=== PATIENT | male | born 1950 | race African-American/Black ===

== ENCOUNTER 2019-03-11 09:11 | Inpatient (IN) | payer OTHER ==
[~2019-03-11 09:11] MED LIST: CEFAZOLIN 2 GM/D5W 2 GM/50 ML ML IVPB ONE; GABAPENTIN 300 MG CAPSULE (FP) PO STA; VANCOMYCIN 1 GRAM (PRE-DOCKED) 1,000 MG/250 ML BAG IVPB ONE
[2019-03-11] MEDS ORDERED: ceFAZolin SODIUM 1 GM VIAL ONE ×3 (11:21→19:24)
[2019-03-11] MEDS ORDERED: fentaNYL CITRATE 250 MCG/5 ML VIAL ONE ×2 (13:01→17:47)
[2019-03-11] MEDS ORDERED: LIDOCAINE HCL/PF 2% SDV 5ML VIAL ONE (13:02)
[2019-03-11] MEDS ORDERED: SUCCINYLCHOLINE CHLORIDE 200 MG/10 ML SYRINGE ONE (13:02)
[2019-03-11] MEDS ORDERED: DEXAMETHASONE SOD PHOSPHATE 4 MG/1 ML VIAL ONE (13:02)
[2019-03-11] MEDS ORDERED: ONDANSETRON 4 MG/2 ML VIAL ONE (13:02)
[2019-03-11] MEDS ORDERED: VANCOMYCIN 1,000 MG VIAL (RESTRICTED TO ID ONLY) ONE (13:02)
[2019-03-11] MEDS ORDERED: PROPOFOL 20 ML ONE ×19 (13:02→18:33)
[2019-03-11] MEDS ORDERED: TRANEXAMIC ACID 1000 MG/10 ML VIAL ONE ×2 (13:02→15:34)
[2019-03-11] MEDS ORDERED: THROMBIN (BOVINE) 5,000 UNIT VIAL TP ONE ×2 (13:10→15:40)
[2019-03-11] MEDS ORDERED: MORPHINE 5 MG/10 ML AMP - FOR COMPOUNDING USE ONLY ONE (13:16)
[2019-03-11] MEDS ORDERED: HEPARIN NA (PORCINE) 5,000 UNITS/ML 1ML VIAL ONE (13:17)
[2019-03-11] MEDS ORDERED: BUPIVACAINE HCL/PF 0.5% (5MG/ML) 10 ML VIAL ONE (13:41)
[2019-03-11] MEDS ORDERED: BUPIVACAINE LIPOSOME/PF (EXPAREL) 266 MG/20 ML VIAL ONE (13:41)
[2019-03-11] MEDS ORDERED: MIDAZOLAM HCL 2 MG/2 ML SINGLE DOSE VIAL ONE ×2 (13:43)
[2019-03-11] MEDS ORDERED: NALOXONE HCL 0.4 MG/ML VIAL IVPUSH PRN (13:55)
[2019-03-11] MEDS ORDERED: ONDANSETRON 4 MG/2 ML VIAL IVPUSH PRN ×2 (13:55→14:00)
[2019-03-11] MEDS ORDERED: VANCOMYCIN 1,000 MG VIAL (RESTRICTED TO ID ONLY) IVPB ONE (14:00)
[2019-03-11] MEDS ORDERED: LACTATED RINGERS SOLUTION 1,000 ML IV SCH ×2 (14:00→20:00)
[2019-03-11] MEDS ORDERED: ceFAZolin SODIUM 1 GM VIAL IVPB ONE (14:45)
[2019-03-11] MEDS ORDERED: GELATIN SPONGE,ABSORBABLE 1 GM PACKET TP ONE (15:41)
[2019-03-11] MEDS ORDERED: NEOSTIGMINE METHYLSULFATE 0.5 MG/1 ML - 10 ML MDV ONE (16:41)
[2019-03-11] MEDS ORDERED: GLYCOPYRROLATE 0.2 MG/1 ML VIAL ONE (16:42)
[2019-03-11] MEDS ORDERED: PHENYLEPHRINE HCL 10 MG/1 ML SINGLE DOSE VIAL ONE (18:07)
--- NOTE | 2019-03-11 21:51 | OP ---
DATE OF OPERATION: 03/11/2019 SURGEON: Dallas Hewitt MD MOTORCYCLE DELIVERER: Ned Hunt PA-C PREOPERATIVE DIAGNOSIS: Lumbar spinal stenosis L2-S1 with kyphosis and segmental instability. POSTOPERATIVE DIAGNOSIS: Lumbar spinal stenosis L2-S1 with kyphosis and segmental instability. OPERATION PERFORMED: 1. Left laminectomy with undercutting facetectomy L2-S1. 2. Right laminectomy with undercutting facetectomy L2-S1. 3. Incidental durotomy with repair. 4. Interiano-Horowitz osteotomy on the left L2-L3. 5. Interiano-Horowitz osteotomy on the right L2-L3. 6. L2-S1 pedicle screw instrumentation. 7. Posterolateral arthrodesis L2-S1. 8. Complex wound closure, 4 layers, 25 cm. 9. Use of autologous bone graft expanded with allograft and bone marrow aspirate concentration utilized. 10. Use of bipolar fluoroscopy and intraoperative neuromonitoring. ANESTHESIA: General. ANTIBIOTICS GIVEN: Kefzol 2 g, 1 g vancomycin preoperative, 1 g Kefzol given just before instrumentation, and 1 g Kefzol given at the time of closure. BLOOD LOSS: Approximately 1 L. Cell Saver utilized, 400 mL given back. OPERATION DETAILS: Patient correctly identified, brought to the operating room. The lumbar spine was prepped and draped in the routine manner with betadine scrub solution, wiped off with alcohol, and DuraPrep applied. The patient was placed pone on the Richie table. All bony prominences and eyes were appropriately padded. The appropriate timeout was called. The retractors were released every 20 minutes and muscles were massaged. Midline incision utilized from the tip of the spinous process of T12 to S1. Subperiosteal dissection performed through skin, subcutaneous tissues, to the transverse spinous processes. The erectus spinae were dissected off of the spinous processes and laminae of the facet joints out to the tip of the transverse processes on the left and right-hand sides. The intertransverse plane was packed with sponges for hemostasis and to expand the space for bone graft. A lateral x-ray was taken at the level of L4-L5 to verify levels. The lamina of L2, L3, L4, and L5 were resected, both left and right-hand sides. Each one was treated exactly the same way. A midline laminectomy was performed first to open up the posterior laminar plane. Once this had been performed, the undercutting facetectomy was performed in the following manner: First the inferior facets of each level with half the longitudinal length of the pars interarticularis were resected by sinking an osteotome alongside the length of the pars interarticularis into the inferior facet, imploding the bone inwards towards the vertebral canal. This was performed at each level, from L2 right down to S1, both on the left and right-hand sides. This enabled easy access to the superior facet, but severe multilevel spinal stenosis encountered. This was a combination of bone as well as convoluted thickened ligamentum mucosa, which was copiously removed. Unusual tissue was encountered in the right-hand side L4-L5-S1 interval of a myxoid mucinous-type material, which I could not save any for the lab because the suction sucked up most of this material. This appeared to be imperative of some form of inflammatory process as the theca both on the left and right-hand sides were stuck down precluding the ability to do any interbody spacers and interbody cages with anterior arthrodesis. We aimed at posterior lumbar interbody fusions at multiple levels, but this has turned out to be impossible because of the adherence of the dura. Each nerve root was traced to each foramen. Each foramen was actually formally opened, thus performing a formal foraminotomy at every level to ensure that the foramen was capacious and passage of an infant feeding tube easily was passed through each foramen. At the L2-L3 level, the foraminotomy enabled a wide resection of the pars interarticularis and also the superior and inferior facets. Once this had been performed, the spine actually simply, because of the positioning on the table and Richie frame, fell into increased kyphosis very effectively. Once the laminectomies had been performed and complete freeing of the theca performed, it was reported by the neuromonitoring team that the neural measuring levels improved dramatically. A small bleb of dura was sutured. This was noted on the left L2-L3 level. A 4 Nurolon suture was used to close the dura and bright it to tight seal. This was tested for seal by a Valsalva maneuver up to 40 mmHg. Once this had all been completed and the laminectomies, durotomy performed, and Interiano-Horowitz now completed, the pedicle screws were inserted. We used anatomical guidelines and lateral fluoroscopic x-rays to help guide the screws. Screws measured 6.5 x 40. All screws were placed. First a 4.5 drill was sunk into each pedicle. After that, the screws were tested with intraoperative neuromonitoring. All were found to be above 20 milliamps with no complications. The rods were cut to the size of the length. The rods were placed with no complications. The screws were seated into the tulips to lock the rods into position and then finally the torque device was utilized. Two Crosslinks were applied for solid fixation. Once the entire rock construction had been completed, the muscle was gently lifted. Then 120 mL of bone marrow from the left posterior ileum was harvested and spun down to the CD34 cells. Six strips of demineralized bone was soaked in the stem cells of the bone marrow aspirate concentrate and placed longitudinally into the intertransverse plane on both the left and right-hand sides. This was mixed with autologous and expanded with some bone marrow josh was packed into the intertransverse plane from L1 to S1. This completed the appropriate posterolateral arthrodesis. The wounds were thoroughly lavaged. Closure: After trimming of muscle with scissors, muscle with 1 Vicryl; fascia 1 Vicryl; subcutaneous tissue 1 and 2-0 Vicryl; skin with fady. Drainage: One-eighth inch Hemovac x1. Operation went well. No complications. PLAN: The plan is to monitor the patient postoperatively. MD PEE Villalobos/[id number]
[2019-03-11] MEDS ORDERED: ATORVASTATIN CA 10 MG TABLET (FP) PO SCH (22:00)
[2019-03-11] MEDS ORDERED: [UNRECOGNIZED DRUG - OTHER] OU SCH (22:00)
[2019-03-11] MEDS ORDERED: PATIENT'S OWN MEDICATION (NON-FORMULARY) (Oxybutynin Chloride [Oxybutynin Chloride Er] 5 M PO SCH (22:00)
[2019-03-11] MEDS ORDERED: OXYBUTYNIN CHLORIDE 5 MG TABLET PO SCH (22:00)
[2019-03-11] MEDS ORDERED: LATANOPROST 0.005% OPHTH SOLN 2.5ML BOTTLE OU SCH (22:00)
[2019-03-11] MEDS ORDERED: LATANOPROST OU SCH (22:00)
--- NOTE | 2019-03-11 22:12 | OP ---
Operative Note - Note: Operative Date: 03/11/19 Pre-Operative Diagnosis: Lumbar Spinal Stenosis Segmental Instability Kyphosis Operation: L2 to S1 Bilatral laminectomy. Interiano saba osteotomy. Instrumented L2 to S1 posterolateral arthrodesis Findings: Severe spinal stenosis Implants: [employer] Surgeon: Dallas Hewitt [place] Aide: Ned Hunt Anesthesia: General Estimated Blood Loss (mls): 1,000 Drains & Tubes with Location: Hemovac 09/18 Blood Volume Replaced (mls): 400 (cell saver blood) Operative Report Dictated: Yes
[2019-03-11] MEDS: ACETAMINOPHEN 325 MG TABLET (FP) PO SCH (23:32)
--- NOTE | 2019-03-11 23:48 | CONSULT ---
Consultation: REQUESTING PROVIDER: CONSULT REQUEST: We have been asked to medically evaluate this patient for ( specify). HISTORY OF PRESENT ILLNESS: Mr. Joe is a pleasant 68 y/o man with DM, HTN, gout, and spinal stenosis with segmental instability admitted to the ICU for medical management s/p L2-S1 bilateral laminectomy. The patient is alert and oriented to self, location, and date however is perseverating on questions and still seems to be slightly affected by the anesthesia. The patient was unable to give a complete history at this time. He states he is feeling well and only has a little back pain. He denies numbness or tingling in his extremities, chest pain, SOB, and states he has not yet passed gas. Social History: - Smoking: endorses remote smoking history (quit in 20s), denies smoking now - Alcohol: denies alcohol use - Recreational Drugs: endorses cannabis use, denies other recreational drugs REVIEW OF SYSTEMS: CONSTITUTIONAL: Absent: fever, chills, diaphoresis, malaise HEENT: Endorses: dry mouth Absent: rhinorrhea, nasal congestion, throat pain, difficulty swallowing CARDIOVASCULAR: Absent: chest pain, palpitations, lightheadedness, peripheral edema RESPIRATORY: Absent: cough, shortness of breath GASTROINTESTINAL: Absent: abdominal pain, abdominal distension, nausea, vomiting GENITOURINARY: Absent: dysuria, flank pain MUSCULOSKELETAL: Endorses: "Numbness in center back" Absent: myalgia, arthralgia, joint swelling SKIN: Absent: rash, itching, pallor NEUROLOGIC: Absent: headache, focal weakness or paresthesias, dizziness PHYSICAL EXAMINATION Vital Signs - 24 hr 03/11/19 03/11/19 03/11/19 11:03 11:08 11:17 Temperature 98.6 F 98.6 F Pulse Rate 58 L 58 L Respiratory 20 20 Rate Blood Pressure 170/91 170/91 O2 Sat by Pulse 98 Oximetry (%) 03/11/19 03/11/19 03/11/19 19:56 20:15 20:30 Temperature 97.9 F Pulse Rate 74 73 71 Respiratory 18 19 18 Rate Blood Pressure 111/77 97/68 101/64 O2 Sat by Pulse 99 97 97 Oximetry (%) 03/11/19 03/11/19 03/11/19 20:45 21:00 21:15 Temperature 98.1 F Pulse Rate 69 69 71 Respiratory 16 12 18 Rate Blood Pressure 109/69 90/53 L 113/74 O2 Sat by Pulse 97 98 100 Oximetry (%) 03/11/19 03/11/19 03/11/19 21:30 21:45 22:00 Temperature 98.4 F Pulse Rate 63 69 70 Respiratory 13 15 14 Rate Blood Pressure 86/52 L 112/54 L 142/54 L O2 Sat by Pulse 97 100 100 Oximetry (%) 03/11/19 22:15 Temperature Pulse Rate 71 Respiratory 18 Rate Blood Pressure 113/74 O2 Sat by Pulse 100 Oximetry (%) GENERAL: Awake, alert, in no acute distress. HEAD: Normal with no signs of trauma. EYES: Pupils equal, round and reactive to light, extraocular movements intact, sclera anicteric, conjunctiva clear. EARS, NOSE, THROAT: Dry mucous membranes. NECK: supple without lymphadenopathy, JVD, or masses. LUNGS: Breath sounds equal, coarse bilaterally. No wheezes, and no crackles. No accessory muscle use. HEART: Regular rate and rhythm, normal S1 and S2 with a systolic murmur. ABDOMEN: Soft, nontender, not distended, normoactive bowel sounds, no guarding, no rebound, no masses. UPPER EXTREMITIES: 2+ pulses, warm, well-perfused. No peripheral edema. LOWER EXTREMITIES: 2+ pulses, warm, well-perfused. No peripheral edema. NEUROLOGICAL: Cranial nerves II-XII intact. Normal speech. PSYCHIATRIC: Cooperative. Good eye contact. Appropriate mood and affect. SKIN: Warm, dry, no rashes or lesions noted. Laboratory Results - last 24 hr 03/11/19 03/11/19 03/11/19 10:47 12:00 12:06 POC Glucometer 106 Blood Type O NEGATIVE O NEGATIVE Antibody Screen Negative Active Medications Generic Name Dose Route Start Last Admin Trade Name Freq PRN Reason Stop Dose Admin Acetaminophen 650 mg 03/11/19 14:00 Tylenol - PO Q6HPO JUSTIN Allopurinol 100 mg 03/12/19 10:00 Zyloprim - PO DAILY JUSTIN Atorvastatin Calcium 10 mg 03/11/19 22:00 Lipitor - PO HS JUSTIN Brimonidine Tartrate 1 drop 03/12/19 10:00 Alphagan P 0.1% - OU DAILY JUSTIN Diphenhydramine HCl 25 mg 03/11/19 13:55 Benadryl Injection - IVPUSH ONCE PRN FOR ITCHING Eplerenone 50 mg 03/12/19 10:00 Eplerenone PO DAILY [facility] Folic Acid 1 mg 03/12/19 10:00 Folic Acid - PO DAILY [facility] Furosemide 40 mg 03/11/19 20:00 Lasix - PO ASDIR [facility] Glimepiride 1 mg 03/12/19 07:00 Amaryl - PO DAILY@0700 [facility] Hydrochlorothiazide 25 mg 03/12/19 10:00 Hctz - PO DAILY [facility] Lactated Ringer's 1,000 mls @ 75 mls/hr 03/11/19 14:00 Lactated Ringers Solution IV ASDIR [facility] Lactated Ringer's 1,000 mls @ 125 mls/hr 03/11/19 20:00 03/11/19 21:30 Lactated Ringers Solution IV 125 mls ASDIR [facility] Administration Cefazolin Sodium/Dextrose 2 gm in 50 mls @ 100 mls/hr 03/12/19 02:00 Ancef 2 Gm Premixed Ivpb - IVPB 03/13/19 01:59 Q8H-IV [facility] Latanoprost 1 drop 03/11/19 22:00 Xalatan 0.005% Eye Drops - OU HS [facility] Lisinopril 20 mg 03/12/19 10:00 Prinivil PO DAILY [facility] Metoprolol Tartrate 25 mg 03/11/19 22:00 Lopressor - PO BID [facility] Naloxone HCl 0.4 mg 03/11/19 13:55 Narcan - IVPUSH ONCE PRN Sedation Non-Formulary Medication 240 mg 03/11/19 22:00 Verapamil Hcl [Verapamil Er] PO BID [facility] Ondansetron HCl 4 mg 03/11/19 13:55 Zofran Injection IVPUSH ONCE PRN NAUSEA Ondansetron HCl 4 mg 03/11/19 14:00 Zofran Injection IVPUSH Q6H PRN NAUSEA AND/OR VOMITING Oxybutynin Chloride 5 mg 03/11/19 22:00 Ditropan - PO HS [facility] Oxycodone HCl 5 mg 03/12/19 13:55 Roxicodone - PO Q3H PRN Mild Pain 1-3 Oxycodone HCl 10 mg 03/12/19 13:55 Roxicodone - PO Q3H PRN Moderate Pain 4-6 Oxycodone HCl 10 mg 03/11/19 22:00 Oxycontin - PO BID [facility] Pneumococcal 13-Valent Conj Vacc 0.5 ml 03/11/19 11:10 Prevnar 13 Syringe - IM 03/11/19 11:11 .ONCE ONE ASSESSMENT/PLAN: Mr. Joe is a 68 year old man with pmhx of DM, HTN, gout, and spinal stenosis with segmental instability admitted to the ICU for medical management s /p L2-S1 bilateral laminectomy. Neuro: - appreciate Dr. Ballard's recommendations - Neuro checks q12h - daily drain checks/ empty as needed - OOB to chair as tolerated - incentive spirometry -Pain management: Tylenol 650 mg q6h PO Oxycodone HCl 10mg BID PO - Antibiotics: Cefazolin Sodium/Dextrose 2 gm in 50 mls @ 100 mls/hr IVPB Q8H-IV -Nausea Zofran Injection 4mg q6h PRN IV push CV: - Continue home meds for HTN/ HLD: Atorvastatin Calcium 10mg PO qHS Eplerenone 50mg PO qDaily Hydrochlorothiazide 25mg PO qDaily Lisinopril 20mg PO qDaily Metoprolol Tartrate 25mg PO BID Verapamil Hcl 240mg PO BID Endo: - Continue home meds for DM -Glimepiride 1mg PO daily @ 0700 HEENT: -Continue home meds for glaucoma: Alphagan P 0.1% 1 drop OU daily Latanoprost 0.005% 1 drop OU at bedtime Rheum: - Continue home meds for gout- Allopurinol 100mg qDaily PO FEN: - Fluid: LR 1,000 mls @ 125 mls/hr IV - Electrolytes: replete as needed - Nutrition: advance diet as tolerated DVT PPX: SCDs Dispo: We will continue to follow the patient. Thank you for this consultative opportunity. Visit type - Emergency Visit Emergency Visit: No - New Patient This patient is new to me today: Yes Date on this admission: 03/12/19 - Critical Care Critical Care patient: Yes Total Critical Care Time (in minutes): 36 Critical Care Statement: The care of this patient involved high complexity decision making to prevent further life threatening deterioration of the patient 's condition and/or to evaluate & treat vital organ system(s) failure or risk of failure.
[2019-03-11] MEDS: METOPROLOL TARTRATE 25 MG TABLET (FP) PO SCH (23:54)
[2019-03-11] MEDS: oxyCODONE HCL 10 MG SUSTAINED ACTING TABLET PO SCH (23:54)
[2019-03-12] MEDS: ACETAMINOPHEN 325 MG TABLET (FP) PO SCH ×4 (00:50→18:22)
[2019-03-12] MEDS: CEFAZOLIN 2 GM/D5W 2 GM/50 ML ML IVPB SCH ×3 (01:01→17:14)
[2019-03-12 06:21] LABS: HEMOGLOBIN 10.6 GM/dL (11.7-16.9); MCH 22.8 pg (25.7-33.7); MCHC 31.3 g/dl (32.0-35.9); MEAN CELL VOLUME 72.8 fl (80-96); MEAN PLT VOLUME 10.3 fl (7.5-11.1); PLATELET COUNT 102 K/MM3 (134-434); RBC 4.67 M/mm3 (4.00-5.60); RDW 14.1 % (11.9-15.9); WHITE BLOOD COUNT 12.5 K/mm3 (4.0-10.0)
[2019-03-12 06:45] LABS: BLOOD UREA NITROGEN 13.9 mg/dL (7-18); CALCIUM 7.8 mg/dL (8.5-10.1); CREATININE 0.8 mg/dL (0.55-1.3); POTASSIUM 3.7 mmol/L (3.5-5.1)
[2019-03-12] MEDS: oxyCODONE HCL 5 MG TABLET PO PRN ×3 (06:46→18:23)
[2019-03-12] MEDS ORDERED: GLIMEPIRIDE 1 MG TABLET (FP) PO SCH (07:00)
--- NOTE | 2019-03-12 07:01 | SURG ---
Surgery Vocational Training Director Note Vocational Training Director: Ned Hunt PA-C Date of Service: 03/11/19 Diagnosis: Lumbar Spinal Stenosis. Segmental Instability. Kyphosis Procedure: L2 to S1 Bilatral laminectomy. Interiano Horowitz Osteotomy. Instrumented L2 to S1 posterolateral arthrodesis I was present for the entirety of the operative procedure. For further detail, please refer to operative report. Visit type - Case Type Case Type: Scheduled - New patient This patient is new to me today: Yes Date on this admission: 03/12/19
--- NOTE | 2019-03-12 07:52 | SPA.POSTOP ---
- POST-OP NOTE POD #1 s/p L2-S1 Bilateral laminectomy. Interiano Horowitz Osteotomy. Instrumented L2-S1 posterolateral arthrodesis. Repair of small durotomy. Alert. In bed with HOB at 15 degrees. C/o Incisional tenderness but well controlled. Received preop Exparel block by anasthesia followed by Duramorph spinal. Denies n/v/f/c, CP, palpitations, SOB or [place]. Last Vital Signs Temp Pulse Resp BP Pulse Ox 98.1 F 64 18 131/79 100 03/12/19 06:00 03/12/19 06:00 03/12/19 06:00 03/12/19 06:00 03/11/19 22:30 CBC, BMP 03/12/19 05:43 03/12/19 05:43 General: No acute distress. Pulm: CTA bilat Cor: RRR Abd: Soft. Non-tender. No distention Back: Dressing c/d/i. Hemovac 5mL (serosang). No hematoma : May 450mL (clear) Neuro: GMNVI bilat LE: Soft, non-tender bilat. SCD's bilat. Problem List - Problems (1) Degenerative lumbar spinal stenosis Assessment/Plan: POD #1 s/p s/p L2-S1 Bilateral laminectomy. Interiano Horowitz Osteotomy. Instrumented L2-S1 posterolateral arthrodesis Anasthesia for continued pain management DVT PPX via bilat SCDs Incentive Spirometer Case Management for possible Rehab placement Physical Therapy I/Os Sodium controlled diet f/u Lumbar Xray OOB to chair with assist Tight glycemic control Code(s): M48.061 - SPINAL STENOSIS, LUMBAR REGION WITHOUT NEUROGENIC MARY (2) Kyphosis Code(s): M40.209 - UNSPECIFIED KYPHOSIS, SITE UNSPECIFIED (3) Diabetes Code(s): E11.9 - TYPE 2 DIABETES MELLITUS WITHOUT COMPLICATIONS (4) HTN (hypertension) Code(s): I10 - ESSENTIAL (PRIMARY) HYPERTENSION (5) Gout Code(s): M10.9 - GOUT, UNSPECIFIED Visit type - Case Type Case Type: Scheduled
[2019-03-12] MEDS ORDERED: LISINOPRIL 20 MG TABLET (FP) PO SCH (10:00)
[2019-03-12] MEDS ORDERED: FOLIC ACID 1 MG TABLET (FP) PO SCH (10:00)
[2019-03-12] MEDS ORDERED: HYDROCHLOROTHIAZIDE 25 MG TABLET (FP) PO SCH (10:00)
[2019-03-12] MEDS ORDERED: EPLERENONE 25 MG TABLET PO SCH (10:00)
[2019-03-12] MEDS ORDERED: ALLOPURINOL 100 MG TABLET (FP) PO SCH (10:00)
[2019-03-12] MEDS ORDERED: BRIMONIDINE TARTRATE 0.1% OPHTHALMIC 5 ML BOTTLE OU SCH (10:00)
[2019-03-12] MEDS: oxyCODONE HCL 10 MG SUSTAINED ACTING TABLET PO SCH ×2 (10:20→21:48)
[2019-03-12] MEDS: METOPROLOL TARTRATE 25 MG TABLET (FP) PO SCH ×2 (10:26→21:49)
[2019-03-12] MEDS ORDERED: PT OWN MED DRAWER 7, Y5N ONE (10:29)
[2019-03-12] MEDS ORDERED: PNEUMOC 13-VAL CONJ-DIP CRM/PF 0.5 ML DISP.SYRIN IM ONE (11:00)
--- NOTE | 2019-03-12 12:34 | PN ---
Physical Exam: SUBJECTIVE: Patient seen and examined. No acute events overnight. Pt. denies passing stool or gas. Pt. endorses lower back pain on movement but improved since procedure. OBJECTIVE: Vital Signs Period Temp Pulse Resp BP Sys/Esquivel Pulse Ox Last 24 Hr 97.9 F-98.4 F 63-81 12-22 86-142/51-87 97-100 GENERAL: The patient is awake, alert, and fully oriented, in moderate distress due to pain. HEAD: Normal with no signs of trauma. EYES: PERRL, Sclera anicteric, conjunctiva clear. No ptosis. ENT: Ears normal, nares patent, oropharynx clear without exudates, moist mucous membranes. NECK: Trachea midline, full range of motion, supple. LUNGS: Breath sounds equal, clear to auscultation bilaterally, no wheezes, no crackles, no accessory muscle use. HEART: Regular rate and rhythm, S1, S2 without murmur ABDOMEN: Soft, nontender, nondistended, normoactive bowel sounds, no guarding, no rebound EXTREMITIES: 2+ pulses, warm, well-perfused, no edema. NEUROLOGICAL: Normal speech, gait not observed. 5/5 strength in all limbs, sensation grossly in tact in all limbs PSYCH: Normal mood, normal affect. SKIN: Warm, dry, normal turgor Laboratory Results - last 24 hr 03/11/19 03/11/19 03/12/19 12:00 12:06 05:43 WBC 12.5 H RBC 4.67 Hgb 10.6 L Hct 34.0 L MCV 72.8 L MCH 22.8 L MCHC 31.3 L RDW 14.1 Plt Count 102 L MPV 10.3 Sodium Potassium Chloride Carbon Dioxide Anion Gap BUN Creatinine Est GFR (CKD-EPI)AfAm Est GFR (CKD-EPI)NonAf POC Glucometer Random Glucose Calcium Blood Type O NEGATIVE O NEGATIVE Antibody Screen Negative 03/12/19 03/12/19 03/12/19 05:43 05:55 11:51 WBC RBC Hgb Hct MCV MCH MCHC RDW Plt Count MPV Sodium 140 Potassium 3.7 Chloride 106 Carbon Dioxide 29 Anion Gap 5 L BUN 13.9 Creatinine 0.8 Est GFR (CKD-EPI)AfAm 104.90 Est GFR (CKD-EPI)NonAf 90.51 POC Glucometer 119 123 Random Glucose 106 Calcium 7.8 L Blood Type Antibody Screen Active Medications Current Medications Acetaminophen (Tylenol -) 650 mg PO Q6HPO [facility] Last Admin: 03/12/19 06:08 Dose: 650 mg Allopurinol (Zyloprim -) 100 mg PO DAILY [facility] Last Admin: 03/12/19 10:22 Dose: 100 mg Atorvastatin Calcium (Lipitor -) 10 mg PO HS [facility] Last Admin: 03/11/19 23:54 Dose: 10 mg Brimonidine Tartrate (Alphagan P 0.1% -) 1 drop OU DAILY [facility] Last Admin: 03/12/19 10:39 Dose: 1 drop Diphenhydramine HCl (Benadryl Injection -) 25 mg IVPUSH ONCE PRN PRN Reason: FOR ITCHING Eplerenone (Eplerenone) 50 mg PO DAILY [facility] Last Admin: 03/12/19 12:24 Dose: 50 mg Folic Acid (Folic Acid -) 1 mg PO DAILY [facility] Last Admin: 03/12/19 10:22 Dose: 1 mg Furosemide (Lasix -) 40 mg PO MOWEFR [facility] Glimepiride (Amaryl -) 1 mg PO DAILY@0700 [facility] Last Admin: 03/12/19 06:08 Dose: 1 mg Hydrochlorothiazide (Hctz -) 25 mg PO DAILY [facility] Last Admin: 03/12/19 10:22 Dose: 25 mg Lactated Ringer's (Lactated Ringers Solution) 1,000 mls @ 125 mls/hr IV ASDIR [facility] Last Admin: 03/11/19 21:30 Dose: 125 mls Cefazolin Sodium/Dextrose (Ancef 2 Gm Premixed Ivpb -) 2 gm in 50 mls @ 100 mls /hr IVPB Q8H-IV [facility] Stop: 03/13/19 01:59 Last Admin: 03/12/19 10:23 Dose: 100 mls/hr Latanoprost (Xalatan 0.005% Eye Drops -) 1 drop OU HS [facility] Last Admin: 03/11/19 23:58 Dose: 1 drop Lisinopril (Prinivil) 20 mg PO DAILY [facility] Last Admin: 03/12/19 10:26 Dose: 20 mg Metoprolol Tartrate (Lopressor -) 25 mg PO BID [facility] Last Admin: 03/12/19 10:26 Dose: 25 mg Naloxone HCl (Narcan -) 0.4 mg IVPUSH ONCE PRN PRN Reason: Sedation Ondansetron HCl (Zofran Injection) 4 mg IVPUSH ONCE PRN PRN Reason: NAUSEA Ondansetron HCl (Zofran Injection) 4 mg IVPUSH Q6H PRN PRN Reason: NAUSEA AND/OR VOMITING Oxybutynin Chloride (Ditropan -) 5 mg PO HS [facility] Last Admin: 03/11/19 23:54 Dose: 5 mg Oxycodone HCl (Roxicodone -) 5 mg PO Q3H PRN PRN Reason: Mild Pain 1-3 Oxycodone HCl (Roxicodone -) 10 mg PO Q3H PRN PRN Reason: Moderate Pain 4-6 Last Admin: 03/12/19 06:46 Dose: 10 mg Oxycodone HCl (Oxycontin -) 10 mg PO BID [facility] Last Admin: 03/12/19 10:20 Dose: 10 mg Verapamil HCl (Calan Sr -) 240 mg PO DAILY [facility] ASSESSMENT/PLAN: Pt. is a 68 y.o. M w/ PMHx. of DM, HTN, Gout, and Spinal stenosis with segmental instability presents to the ICU s/p L2-S1 bilateral laminectomy. #Neurology POD #[address] Ballard's recommendations Neuro checks q12h Daily drain checks/ empty as needed OOB to chair as tolerated Incentive spirometer Pain management: Tylenol 650 mg q6h PO Oxycodone HCl 10mg Q3H(Pain 4-6) PO, Oxycodone 5mg Q3H (Pain 1-3) Antibiotics: c/w Cefazolin Sodium/Dextrose 2 gm in 50 mls @ 100 mls/hr IVPB Q8H-IV perioperatively, f/u Neurosurgery for duration Nausea c/w Zofran Injection 4mg q6h PRN IV push #Cardiovascular HTN/ HLD: c/w Atorvastatin Calcium 10mg PO HS Eplerenone 50mg PO Daily Hydrochlorothiazide 25mg PO Daily Lisinopril 20mg PO Daily Metoprolol Tartrate 25mg PO BID Verapamil Hcl 240mg PO Daily #Endocrine DM - c/w Glimepiride 1mg PO daily @ 0700 #HEENT: Glaucoma: c/w Alphagan P 0.1% 1 drop OU daily c/w Latanoprost 0.005% 1 drop OU at bedtime #Rheumatology Gout: c/w Allopurinol 100mg Daily PO #FEN: Fluid: LR @ 125 mls/hr IV Electrolytes: replete as needed Nutrition: advance diet as tolerated #DVT PPX: SCDs Dispo: Can be transferred to Med/Surg per Surgery Recs. Visit type - Emergency Visit Emergency Visit: Yes ED Registration Date: 03/11/19 Care time: The patient presented to the Emergency Department on the above date and was hospitalized for further evaluation of their emergent condition. - New Patient This patient is new to me today: Yes Date on this admission: 03/12/19 - Critical Care Critical Care patient: Yes Total Critical Care Time (in minutes): 45 Critical Care Statement: The care of this patient involved high complexity decision making to prevent further life threatening deterioration of the patient 's condition and/or to evaluate & treat vital organ system(s) failure or risk of failure. - Discharge Referral Referred to [facility] No
--- NOTE | 2019-03-12 12:34 | PN ---
Teaching Attending Note Name of Resident: Dallas Rosenthal ATTENDING PHYSICIAN STATEMENT I saw and evaluated the patient. I reviewed the resident's note and discussed the case with the resident. I agree with the resident's findings and plan as documented. SUBJECTIVE: Patient seen and examined in the ICU. Awake and alert. Pain seems adequately controlled. No CP or SOB. No acute events overnight. Intake & Output 03/09/19 03/10/19 03/11/19 03/12/19 23:59 23:59 23:59 23:59 Intake Total 2700 2131 Output Total 2300 910 Balance 400 1221 Weight 264 lb 9 oz Last Vital Signs Temp Pulse Resp BP Pulse Ox 98.1 F 81 17 142/71 100 03/12/19 06:00 03/12/19 12:00 03/12/19 12:00 03/12/19 12:00 03/12/19 09:00 Active Medications Acetaminophen (Tylenol -) 650 mg PO Q6HPO [facility] Last Admin: 03/12/19 06:08 Dose: 650 mg Allopurinol (Zyloprim -) 100 mg PO DAILY [facility] Last Admin: 03/12/19 10:22 Dose: 100 mg Atorvastatin Calcium (Lipitor -) 10 mg PO HS [facility] Last Admin: 03/11/19 23:54 Dose: 10 mg Brimonidine Tartrate (Alphagan P 0.1% -) 1 drop OU DAILY [facility] Last Admin: 03/12/19 10:39 Dose: 1 drop Diphenhydramine HCl (Benadryl Injection -) 25 mg IVPUSH ONCE PRN PRN Reason: FOR ITCHING Eplerenone (Eplerenone) 50 mg PO DAILY [facility] Last Admin: 03/12/19 12:24 Dose: 50 mg Folic Acid (Folic Acid -) 1 mg PO DAILY [facility] Last Admin: 03/12/19 10:22 Dose: 1 mg Furosemide (Lasix -) 40 mg PO MOWEFR [facility] Glimepiride (Amaryl -) 1 mg PO DAILY@0700 [facility] Last Admin: 03/12/19 06:08 Dose: 1 mg Hydrochlorothiazide (Hctz -) 25 mg PO DAILY [facility] Last Admin: 03/12/19 10:22 Dose: 25 mg Lactated Ringer's (Lactated Ringers Solution) 1,000 mls @ 125 mls/hr IV ASDIR [facility] Last Admin: 03/11/19 21:30 Dose: 125 mls Cefazolin Sodium/Dextrose (Ancef 2 Gm Premixed Ivpb -) 2 gm in 50 mls @ 100 mls /hr IVPB Q8H-IV [facility] Stop: 03/13/19 01:59 Last Admin: 03/12/19 10:23 Dose: 100 mls/hr Latanoprost (Xalatan 0.005% Eye Drops -) 1 drop OU HS [facility] Last Admin: 03/11/19 23:58 Dose: 1 drop Lisinopril (Prinivil) 20 mg PO DAILY [facility] Last Admin: 03/12/19 10:26 Dose: 20 mg Metoprolol Tartrate (Lopressor -) 25 mg PO BID [facility] Last Admin: 03/12/19 10:26 Dose: 25 mg Naloxone HCl (Narcan -) 0.4 mg IVPUSH ONCE PRN PRN Reason: Sedation Non-Formulary Medication (Verapamil Hcl [Verapamil Er]) 240 mg PO BID [facility] Ondansetron HCl (Zofran Injection) 4 mg IVPUSH ONCE PRN PRN Reason: NAUSEA Ondansetron HCl (Zofran Injection) 4 mg IVPUSH Q6H PRN PRN Reason: NAUSEA AND/OR VOMITING Oxybutynin Chloride (Ditropan -) 5 mg PO [facility] Last Admin: 03/11/19 23:54 Dose: 5 mg Oxycodone HCl (Roxicodone -) 5 mg PO Q3H PRN PRN Reason: Mild Pain 1-3 Oxycodone HCl (Roxicodone -) 10 mg PO Q3H PRN PRN Reason: Moderate Pain 4-6 Last Admin: 03/12/19 06:46 Dose: 10 mg Oxycodone HCl (Oxycontin -) 10 mg PO BID [facility] Last Admin: 03/12/19 10:20 Dose: 10 mg GENERAL: Awake, alert, in no acute distress. HEAD: Normal with no signs of trauma. EYES: Pupils equal, round and reactive to light, extraocular movements intact, sclera anicteric, conjunctiva clear. EARS, NOSE, THROAT: Dry mucous membranes. NECK: supple without lymphadenopathy, JVD, or masses. LUNGS: Breath sounds equal, coarse bilaterally. No wheezes, and no crackles. No accessory muscle use. HEART: Regular rate and rhythm, normal S1 and S2 with a systolic murmur. ABDOMEN: Soft, nontender, not distended, normoactive bowel sounds, no guarding, no rebound, no masses. UPPER EXTREMITIES: 2+ pulses, warm, well-perfused. No peripheral edema. LOWER EXTREMITIES: 2+ pulses, warm, well-perfused. No peripheral edema. NEUROLOGICAL: Non-focal. PSYCHIATRIC: Cooperative. Good eye contact. Appropriate mood and affect. SKIN: Warm, dry, no rashes or lesions noted. Dressing intact. Laboratory Results - last 24 hr 03/11/19 03/11/19 03/12/19 12:00 12:06 05:43 WBC 12.5 H RBC 4.67 Hgb 10.6 L Hct 34.0 L MCV 72.8 L MCH 22.8 L MCHC 31.3 L RDW 14.1 Plt Count 102 L MPV 10.3 Sodium Potassium Chloride Carbon Dioxide Anion Gap BUN Creatinine Est GFR (CKD-EPI)AfAm Est GFR (CKD-EPI)NonAf POC Glucometer Random Glucose Calcium Blood Type O NEGATIVE O NEGATIVE Antibody Screen Negative 03/12/19 03/12/19 03/12/19 05:43 05:55 11:51 WBC RBC Hgb Hct MCV MCH MCHC RDW Plt Count MPV Sodium 140 Potassium 3.7 Chloride 106 Carbon Dioxide 29 Anion Gap 5 L BUN 13.9 Creatinine 0.8 Est GFR (CKD-EPI)AfAm 104.90 Est GFR (CKD-EPI)NonAf 90.51 POC Glucometer 119 123 Random Glucose 106 Calcium 7.8 L Blood Type Antibody Screen ASSESSMENT/PLAN: POD #1: L2-S1 bilateral laminectomy DM HTN Gout Spinal stenosis with segmental instability Neuro checks O2 as needed Incentive Spirometry Pain control Home meds VTE prophylaxis PO as tolerated Strict I & O Glycemic control Floor when OK with surgery Dr Roberson
--- NOTE | 2019-03-12 12:56 | PN ---
Progress Note, Physician Chief Complaint: back pain - Current Medication List Current Medications: Active Medications Acetaminophen (Tylenol -) 650 mg PO Q6HPO [facility] Last Admin: 03/12/19 06:08 Dose: 650 mg Allopurinol (Zyloprim -) 100 mg PO DAILY [facility] Last Admin: 03/12/19 10:22 Dose: 100 mg Atorvastatin Calcium (Lipitor -) 10 mg PO HS [facility] Last Admin: 03/11/19 23:54 Dose: 10 mg Brimonidine Tartrate (Alphagan P 0.1% -) 1 drop OU DAILY [facility] Last Admin: 03/12/19 10:39 Dose: 1 drop Diphenhydramine HCl (Benadryl Injection -) 25 mg IVPUSH ONCE PRN PRN Reason: FOR ITCHING Eplerenone (Eplerenone) 50 mg PO DAILY [facility] Last Admin: 03/12/19 12:24 Dose: 50 mg Folic Acid (Folic Acid -) 1 mg PO DAILY [facility] Last Admin: 03/12/19 10:22 Dose: 1 mg Furosemide (Lasix -) 40 mg PO MOWEFR [facility] Glimepiride (Amaryl -) 1 mg PO DAILY@0700 [facility] Last Admin: 03/12/19 06:08 Dose: 1 mg Hydrochlorothiazide (Hctz -) 25 mg PO DAILY [facility] Last Admin: 03/12/19 10:22 Dose: 25 mg Lactated Ringer's (Lactated Ringers Solution) 1,000 mls @ 125 mls/hr IV ASDIR [facility] Last Admin: 03/11/19 21:30 Dose: 125 mls Cefazolin Sodium/Dextrose (Ancef 2 Gm Premixed Ivpb -) 2 gm in 50 mls @ 100 mls /hr IVPB Q8H-IV [facility] Stop: 03/13/19 01:59 Last Admin: 03/12/19 10:23 Dose: 100 mls/hr Latanoprost (Xalatan 0.005% Eye Drops -) 1 drop OU HS [facility] Last Admin: 03/11/19 23:58 Dose: 1 drop Lisinopril (Prinivil) 20 mg PO DAILY [facility] Last Admin: 03/12/19 10:26 Dose: 20 mg Metoprolol Tartrate (Lopressor -) 25 mg PO BID [facility] Last Admin: 03/12/19 10:26 Dose: 25 mg Naloxone HCl (Narcan -) 0.4 mg IVPUSH ONCE PRN PRN Reason: Sedation Non-Formulary Medication (Verapamil Hcl [Verapamil Er]) 240 mg PO BID [facility] Ondansetron HCl (Zofran Injection) 4 mg IVPUSH ONCE PRN PRN Reason: NAUSEA Ondansetron HCl (Zofran Injection) 4 mg IVPUSH Q6H PRN PRN Reason: NAUSEA AND/OR VOMITING Oxybutynin Chloride (Ditropan -) [address] [facility] Last Admin: 03/11/19 23:54 Dose: 5 mg Oxycodone HCl (Roxicodone -) 5 mg PO Q3H PRN PRN Reason: Mild Pain 1-3 Oxycodone HCl (Roxicodone -) 10 mg PO Q3H PRN PRN Reason: Moderate Pain 4-6 Last Admin: 03/12/19 06:46 Dose: 10 mg Oxycodone HCl (Oxycontin -) 10 mg PO BID [facility] Last Admin: 03/12/19 10:20 Dose: 10 mg - Objective Vital Signs: Vital Signs Temperature 98.1 F 03/12/19 06:00 Pulse Rate 81 03/12/19 12:00 Respiratory Rate 17 03/12/19 12:00 Blood Pressure 142/71 03/12/19 12:00 O2 Sat by Pulse Oximetry (%) 100 03/12/19 09:00 Constitutional: Yes: Well Nourished, Obese Eyes: Yes: WNL HENT: Yes: WNL Neck: Yes: WNL Cardiovascular: Yes: WNL Respiratory: Yes: WNL Gastrointestinal: Yes: WNL Genitourinary: Yes: WNL Musculoskeletal: Yes: WNL Extremities: Yes: WNL Edema: No Integumentary: Yes: WNL Wound/Incision: Yes: Clean/Dry, Well Approximated Neurological: Yes: WNL Psychiatric: Yes: WNL Labs: CBC, BMP 03/12/19 05:43 03/12/19 05:43 Assessment/Plan 68 y/o man with DM, HTN, gout, and spinal stenosis with segmental instability admitted to the ICU for medical management s/p L2-S1 bilateral laminectomy. cont pain management. incentive spirometry. -GI, DVT prophylaxis. -morbid obesity: weight loss and healthier lifestyle advisd -chronic gout: cont allopurinol. -HLD: on lipitor -acute on chronic anemia: on folic acid -type 2 DM: on RISS, amaryl -HTN/CHF: on lisinopril, lasix, HCTZ, metoprolol. monitor electrolytes carefully. -low anion gap: from reduced protein intake. -PT/OT/OB as tolerated -chronic glaucoma: on latanoprost -Pt can be downgraded from ICU -
[2019-03-12] MEDS ORDERED: oxyCODONE HCL 5 MG TABLET PO PRN ×2 (13:55→17:55)
[2019-03-12] MEDS: PATIENT'S OWN MEDICATION (NON-FORMULARY) (Verapamil Hcl [Verapamil Er] 240 MG) PO SCH ×2 (17:20→17:57)
[2019-03-12] MEDS: VERAPAMIL HCL 240 MG E.R. TABLET PO SCH (17:42)
[2019-03-12] MEDS ORDERED: ONDANSETRON 4 MG/2 ML VIAL IVPUSH PRN (17:55)
[2019-03-12] MEDS: OXYBUTYNIN CHLORIDE 5 MG TABLET PO SCH (21:48)
[2019-03-12] MEDS: ATORVASTATIN CA 10 MG TABLET (FP) PO SCH (21:48)
[2019-03-12] MEDS: LATANOPROST 0.005% OPHTH SOLN 2.5ML BOTTLE OU SCH (21:50)
[2019-03-13] MEDS: ACETAMINOPHEN 325 MG TABLET (FP) PO SCH ×4 (00:38→17:51)
--- NOTE | 2019-03-13 07:38 | SPA.POSTOP ---
- POST-OP NOTE POD #2 s/p L2-S1 Bilateral laminectomy. Interiano Horowitz Osteotomy. Instrumented L2-S1 posterolateral arthrodesis. Repair of small durotomy. Alert. Supine in bed with HOB at 15 degrees. C/o Incisional tenderness about 7/ 10 but well controlled. Received preop Exparel block by anasthesia followed by Duramorph spinal. His davison cath was removed yesterday and is voiding spontaneously. Had low grade temp of 99.3F last evening. Now afebrile. Denies n /v/f/c, CP, palpitations, SOB or [place]. Last Vital Signs Temp Pulse Resp BP Pulse Ox 98.4 F 86 18 112/71 97 03/13/19 08:20 03/13/19 08:20 03/13/19 08:20 03/13/19 08:20 03/13/19 08:20 CBC, BMP 03/13/ 07:07 03/12/19 05:43 General: No acute distress. Pulm: CTA bilat Cor: RRR Abd: Soft. Non-tender. No distention Back: Hemovac 10mL/24hrs...dc'd on rounds. Bekah insitu. No evidnece of infection. New dressing applied. Neuro: GMNVI bilat LE: Soft, non-tender bilat. SCD's bilat. Problem List - Problems (1) Degenerative lumbar spinal stenosis Assessment/Plan: POD #2 s/p s/p L2-S1 Bilateral laminectomy. Interiano Horowitz Osteotomy. Instrumented L2-S1 posterolateral arthrodesis Anasthesia for continued pain management DVT PPX via bilat SCDs Incentive Spirometer Case Management for Rehab placement Hemovac dc'd on rounds Sodium controlled diet OOB to chair with assist and ambulate w/ PT Tight glycemic control Above plan discussed with Dr. Dallas Hewitt and agrees. Code(s): M48.061 - SPINAL STENOSIS, LUMBAR REGION WITHOUT NEUROGENIC MARY (2) Kyphosis Code(s): M40.209 - UNSPECIFIED KYPHOSIS, SITE UNSPECIFIED (3) Diabetes Code(s): E11.9 - TYPE 2 DIABETES MELLITUS WITHOUT COMPLICATIONS (4) HTN (hypertension) Code(s): I10 - ESSENTIAL (PRIMARY) HYPERTENSION (5) Gout Code(s): M10.9 - GOUT, UNSPECIFIED Visit type - Case Type Case Type: Scheduled
[2019-03-13 08:00] LABS: HEMATOCRIT 34.1 % (35.4-49); HEMOGLOBIN 10.8 GM/dL (11.7-16.9); MCH 22.7 pg (25.7-33.7); MCHC 31.6 g/dl (32.0-35.9); MEAN CELL VOLUME 71.9 fl (80-96); MEAN PLT VOLUME 10.6 fl (7.5-11.1); PLATELET COUNT 108 K/MM3 (134-434); RBC 4.75 M/mm3 (4.00-5.60)
[2019-03-13] MEDS: GLIMEPIRIDE 1 MG TABLET (FP) PO SCH (08:31)
[2019-03-13] MEDS ORDERED: FUROSEMIDE 40 MG TABLET (FP) PO SCH ×3 (09:01→10:00)
[2019-03-13] MEDS ORDERED: VERAPAMIL HCL 240 MG E.R. TABLET PO SCH (10:00)
[2019-03-13] MEDS: HYDROCHLOROTHIAZIDE 25 MG TABLET (FP) PO SCH (10:02)
[2019-03-13] MEDS: LISINOPRIL 20 MG TABLET (FP) PO SCH (10:02)
[2019-03-13] MEDS: ALLOPURINOL 100 MG TABLET (FP) PO SCH (10:02)
[2019-03-13] MEDS: FOLIC ACID 1 MG TABLET (FP) PO SCH (10:02)
[2019-03-13] MEDS: oxyCODONE HCL 10 MG SUSTAINED ACTING TABLET PO SCH ×2 (10:03→21:20)
[2019-03-13] MEDS: METOPROLOL TARTRATE 25 MG TABLET (FP) PO SCH ×2 (10:03→21:19)
[2019-03-13] MEDS: VERAPAMIL HCL 240 MG E.R. TABLET PO SCH (10:03)
[2019-03-13] MEDS: BRIMONIDINE TARTRATE 0.1% OPHTHALMIC 5 ML BOTTLE OU SCH (10:05)
[2019-03-13] MEDS: EPLERENONE 25 MG TABLET PO SCH (10:14)
[2019-03-13] MEDS ORDERED: PT OWN MED DRAWER 7, Y5N ONE ×2 (12:41→21:24)
[2019-03-13] MEDS: oxyCODONE HCL 5 MG TABLET PO PRN ×2 (12:45→17:51)
--- NOTE | 2019-03-13 16:18 | PN ---
Progress Note, Physician Chief Complaint: back pain - Current Medication List Current Medications: Active Medications Acetaminophen (Tylenol -) 650 mg PO Q6HPO [facility] Last Admin: 03/13/19 12:45 Dose: 650 mg Allopurinol (Zyloprim -) 100 mg PO DAILY [facility] Last Admin: 03/13/19 10:02 Dose: 100 mg Atorvastatin Calcium (Lipitor -) 10 mg PO HS [facility] Last Admin: 03/12/19 21:48 Dose: 10 mg Brimonidine Tartrate (Alphagan P 0.1% -) 1 drop OU DAILY [facility] Last Admin: 03/13/19 10:05 Dose: 1 drop Eplerenone (Eplerenone) 50 mg PO DAILY [facility] Last Admin: 03/13/19 10:14 Dose: 50 mg Folic Acid (Folic Acid -) 1 mg PO DAILY [facility] Last Admin: 03/13/19 10:02 Dose: 1 mg Furosemide (Lasix -) 40 mg PO MOWEFR [facility] Last Admin: 03/13/19 10:01 Dose: Not Given Glimepiride (Amaryl -) 1 mg PO DAILY@0700 [facility] Last Admin: 03/13/19 08:31 Dose: 1 mg Hydrochlorothiazide (Hctz -) 25 mg PO DAILY [facility] Last Admin: 03/13/19 10:02 Dose: 25 mg Latanoprost (Xalatan 0.005% Eye Drops -) 1 drop OU [facility] Last Admin: 03/12/19 21:50 Dose: 1 drop Lisinopril (Prinivil) 20 mg PO DAILY [facility] Last Admin: 03/13/19 10:02 Dose: 20 mg Metoprolol Tartrate (Lopressor -) 25 mg PO BID [facility] Last Admin: 03/13/19 10:03 Dose: 25 mg Oxybutynin Chloride (Ditropan -) 5 mg PO HS [facility] Last Admin: 03/12/19 21:48 Dose: 5 mg Oxycodone HCl (Roxicodone -) 5 mg PO Q3H PRN PRN Reason: Mild Pain 1-3 Oxycodone HCl (Roxicodone -) 10 mg PO Q3H PRN PRN Reason: Moderate Pain 4-6 Last Admin: 03/13/19 12:45 Dose: 10 mg Oxycodone HCl (Oxycontin -) 10 mg PO BID [facility] Last Admin: 03/13/19 10:03 Dose: 10 mg Verapamil HCl (Calan Sr -) 240 mg PO DAILY [facility] Last Admin: 03/13/19 10:03 Dose: 240 mg - Objective Vital Signs: Vital Signs Temperature 99.1 F 03/13/19 14:05 Pulse Rate 83 03/13/19 14:05 Respiratory Rate 18 03/13/19 14:05 Blood Pressure 98/56 L 03/13/19 14:05 O2 Sat by Pulse Oximetry (%) 97 03/12/19 19:12 Constitutional: Yes: Well Nourished, Obese Eyes: Yes: WNL HENT: Yes: WNL Neck: Yes: WNL Cardiovascular: Yes: WNL Respiratory: Yes: WNL Gastrointestinal: Yes: Hypoactive Bowel Sounds Genitourinary: Yes: WNL Musculoskeletal: Yes: Back Pain Extremities: Yes: WNL Edema: Yes Peripheral Pulses WNL: Yes Integumentary: Yes: WNL Wound/Incision: Yes: Clean/Dry, Well Approximated, Dressing Dry and Intact Neurological: Yes: WNL, Alert, Oriented ...Motor Strength: WNL Psychiatric: Yes: WNL Labs: CBC, BMP 03/13/19 07:07 03/12/19 05:43 Assessment/Plan -68 y/o man with DM, HTN, gout, and spinal stenosis with segmental instability admitted to the ICU for medical management s/p L2-S1 bilateral laminectomy. cont pain management. incentive spirometry. so far no complications. -GI, DVT prophylaxis. -morbid obesity: weight loss and healthier lifestyle advised. -chronic gout: cont allopurinol. -HLD: on lipitor -acute on chronic anemia: on folic acid -type 2 DM: on RISS, amaryl -HTN/CHF: on lisinopril, lasix, HCTZ, metoprolol. monitor electrolytes carefully. BP is soft. will down titrate meds if systolic BP remains<100 -low anion gap: from reduced protein intake. -PT/OT/OB as tolerated -chronic glaucoma: on latanoprost -doing well in monitored bed. -DC plan to rehab possibly on Monday. -
--- NOTE | 2019-03-13 17:25 | PN ---
Progress Note (short form) - Note Progress Note: POD#2 Comfortable C/O incisional pain No leg pain Walked in the room Problem Wound drainage O/E Vitals at baseline See chart `Abd Soft No flatus Neuro at baseline Wound dressing dry changed 2 hrs ago PLAN Continue medical and nursing mx PT mobilize FWBAT Pain mx Wound dressings to change as necessary
[2019-03-13] MEDS: DOCUSATE SODIUM 100 MG CAPSULE (FP) PO SCH (21:21)
[2019-03-13] MEDS: OXYBUTYNIN CHLORIDE 5 MG TABLET PO SCH (21:21)
[2019-03-13] MEDS: ATORVASTATIN CA 10 MG TABLET (FP) PO SCH (21:25)
[2019-03-13] MEDS: POLYETHYLENE GLYCOL 3350 119 GM BTL PO SCH (21:26)
[2019-03-13] MEDS: LATANOPROST 0.005% OPHTH SOLN 2.5ML BOTTLE OU SCH (21:29)
[2019-03-14] MEDS: ACETAMINOPHEN 325 MG TABLET (FP) PO SCH ×4 (00:43→18:18)
[2019-03-14] MEDS: DOCUSATE SODIUM 100 MG CAPSULE (FP) PO SCH ×3 (05:35→21:30)
[2019-03-14] MEDS: GLIMEPIRIDE 1 MG TABLET (FP) PO SCH (06:05)
[2019-03-14] MEDS: LISINOPRIL 20 MG TABLET (FP) PO SCH (10:07)
[2019-03-14] MEDS: HYDROCHLOROTHIAZIDE 25 MG TABLET (FP) PO SCH (10:07)
[2019-03-14] MEDS: FOLIC ACID 1 MG TABLET (FP) PO SCH (10:07)
[2019-03-14] MEDS: ALLOPURINOL 100 MG TABLET (FP) PO SCH (10:08)
[2019-03-14] MEDS: METOPROLOL TARTRATE 25 MG TABLET (FP) PO SCH ×2 (10:08→21:30)
[2019-03-14] MEDS: VERAPAMIL HCL 240 MG E.R. TABLET PO SCH (10:09)
[2019-03-14] MEDS: oxyCODONE HCL 10 MG SUSTAINED ACTING TABLET PO SCH ×2 (10:10→21:28)
[2019-03-14] MEDS: POLYETHYLENE GLYCOL 3350 119 GM BTL PO SCH ×2 (10:10→21:30)
[2019-03-14] MEDS ORDERED: PT OWN MED DRAWER 7, Y5N ONE ×2 (10:18→22:00)
[2019-03-14] MEDS: EPLERENONE 25 MG TABLET PO SCH (10:26)
[2019-03-14] MEDS: BRIMONIDINE TARTRATE 0.1% OPHTHALMIC 5 ML BOTTLE OU SCH (10:26)
--- NOTE | 2019-03-14 11:25 | PN ---
Progress Note, Physician Chief Complaint: back pain - Current Medication List Current Medications: Active Medications Acetaminophen (Tylenol -) 650 mg PO Q6HPO [facility] Last Admin: 03/14/19 05:34 Dose: 650 mg Allopurinol (Zyloprim -) 100 mg PO DAILY [facility] Last Admin: 03/14/19 10:08 Dose: 100 mg Atorvastatin Calcium (Lipitor -) 10 mg PO HS [facility] Last Admin: 03/13/19 21:25 Dose: 10 mg Brimonidine Tartrate (Alphagan P 0.1% -) 1 drop OU DAILY [facility] Last Admin: 03/14/19 10:26 Dose: 1 drop Docusate Sodium (Colace -) 100 mg PO TID [facility] Last Admin: 03/14/19 05:35 Dose: 100 mg Eplerenone (Eplerenone) 50 mg PO DAILY [facility] Last Admin: 03/14/19 10:26 Dose: 50 mg Folic Acid (Folic Acid -) 1 mg PO DAILY [facility] Last Admin: 03/14/19 10:07 Dose: 1 mg Glimepiride (Amaryl -) 1 mg PO DAILY@0700 [facility] Last Admin: 03/14/19 06:05 Dose: 1 mg Hydrochlorothiazide (Hctz -) 25 mg PO DAILY [facility] Last Admin: 03/14/19 10:07 Dose: 25 mg Latanoprost (Xalatan 0.005% Eye Drops -) 1 drop OU HS [facility] Last Admin: 03/13/19 21:29 Dose: 1 drop Lisinopril (Prinivil) 20 mg PO DAILY [facility] Last Admin: 03/14/19 10:07 Dose: 20 mg Metoprolol Tartrate (Lopressor -) 25 mg PO BID [facility] Last Admin: 03/14/19 10:08 Dose: 25 mg Oxybutynin Chloride (Ditropan -) 5 mg PO HS [facility] Last Admin: 03/13/19 21:21 Dose: 5 mg Oxycodone HCl (Roxicodone -) 5 mg PO Q3H PRN PRN Reason: Mild Pain 1-3 Oxycodone HCl (Roxicodone -) 10 mg PO Q3H PRN PRN Reason: Moderate Pain 4-6 Last Admin: 03/13/19 17:51 Dose: 10 mg Oxycodone HCl (Oxycontin -) 10 mg PO BID [facility] Last Admin: 03/14/19 10:10 Dose: 10 mg Polyethylene Glycol (Miralax (For Daily Use) -) 17 gm PO BID [facility] Last Admin: 03/14/19 10:10 Dose: 17 gm Verapamil HCl (Calan Sr -) 240 mg PO DAILY [facility] Last Admin: 03/14/19 10:09 Dose: 240 mg - Objective Vital Signs: Vital Signs Temperature 97.8 F 03/14/19 06:19 Pulse Rate 73 03/14/19 06:19 Respiratory Rate 20 03/14/19 06:19 Blood Pressure 122/83 03/14/19 06:19 O2 Sat by Pulse Oximetry (%) 97 03/13/19 21:00 Constitutional: Yes: Obese Eyes: Yes: WNL HENT: Yes: WNL Neck: Yes: WNL Cardiovascular: Yes: WNL Respiratory: Yes: WNL Gastrointestinal: Yes: Abdomen, Obese Genitourinary: Yes: WNL Musculoskeletal: Yes: Back Pain Extremities: Yes: WNL Edema: Yes Peripheral Pulses WNL: Yes Integumentary: Yes: WNL Wound/Incision: Yes: Clean/Dry, Well Approximated, Dressing Dry and Intact Neurological: Yes: WNL ...Motor Strength: WNL Psychiatric: Yes: WNL Labs: CBC, BMP 03/13/19 07:07 03/12/19 05:43 Assessment/Plan -68 y/o man with DM, HTN, gout, and spinal stenosis with segmental instability admitted to the ICU for medical management s/p L2-S1 bilateral laminectomy. cont pain management. incentive spirometry. so far no complications. -GI, DVT prophylaxis. -constipation: opioid induced. to get dulcolx suppository. -morbid obesity: weight loss and healthier lifestyle advised. -chronic gout: cont allopurinol. -HLD: on lipitor -acute on chronic anemia: on folic acid -type 2 DM: on RISS, amaryl -HTN/CHF: on lisinopril, lasix, HCTZ, metoprolol. monitor electrolytes carefully. BP is soft. will down titrate meds if systolic BP remains<100 -low anion gap: from reduced protein intake. -PT/OT/OB as tolerated -chronic glaucoma: on latanoprost -doing well in monitored bed. -DC plan to rehab in process. -
--- NOTE | 2019-03-14 13:03 | PN ---
Progress Note (short form) - Note Progress Note: POD#3 Comfortable C/O incisional pain No leg pain Walked in the room Sitting in chair Problem Wound drainage O/E Vitals at baseline See chart `Abd Soft No flatus Neuro at baseline Wound dressing wet with serosang drainage PLAN Continue medical and nursing mx PT mobilize FWBAT Pain mx Wound dressings to change as necessary Review tomorrow re Iand D wound
[2019-03-14] MEDS: OXYBUTYNIN CHLORIDE 5 MG TABLET PO SCH (21:30)
[2019-03-14] MEDS: ATORVASTATIN CA 10 MG TABLET (FP) PO SCH (21:30)
[2019-03-14] MEDS: LATANOPROST 0.005% OPHTH SOLN 2.5ML BOTTLE OU SCH (21:31)
[2019-03-15] MEDS: ACETAMINOPHEN 325 MG TABLET (FP) PO SCH ×4 (00:49→18:32)
[2019-03-15] MEDS: DOCUSATE SODIUM 100 MG CAPSULE (FP) PO SCH ×3 (06:29→21:58)
[2019-03-15] MEDS: GLIMEPIRIDE 1 MG TABLET (FP) PO SCH (06:33)
[2019-03-15 07:09] LABS: BASO % 0.2 % (0-2.0); EOS % 0.5 % (0-4.5); HEMATOCRIT 36.5 % (35.4-49); HEMOGLOBIN 11.5 GM/dL (11.7-16.9); LYMPH % 17.2 % (8-40); MCH 22.8 pg (25.7-33.7); MCHC 31.5 g/dl (32.0-35.9); MEAN CELL VOLUME 72.3 fl (80-96); MEAN PLT VOLUME 10.6 fl (7.5-11.1); NEUT % 69.1 % (42.8-82.8); PLATELET COUNT 178 K/MM3 (134-434); RBC 5.04 M/mm3 (4.00-5.60); RDW 13.7 % (11.9-15.9); WHITE BLOOD COUNT 17.6 K/mm3 (4.0-10.0)
[2019-03-15 07:38] LABS: ALBUMIN 2.6 g/dl (3.4-5.0); BILIRUBIN,TOTAL 0.5 mg/dL (0.2-1); BLOOD UREA NITROGEN 15.6 mg/dL (7-18); CALCIUM 8.1 mg/dL (8.5-10.1); CREATININE 0.9 mg/dL (0.55-1.3); POTASSIUM 3.2 mmol/L (3.5-5.1)
[2019-03-15] MEDS ORDERED: D5-1/2NS+20 MEQ KCL - 20 MEQ/1,000 ML INFUS.BAG IV SCH (08:45)
--- NOTE | 2019-03-15 08:52 | PN ---
Progress Note, Physician Chief Complaint: back pain - Current Medication List Current Medications: Active Medications Acetaminophen (Tylenol -) 650 mg PO Q6HPO [facility] Last Admin: 03/15/19 06:30 Dose: 650 mg Allopurinol (Zyloprim -) 100 mg PO DAILY [facility] Last Admin: 03/14/19 10:08 Dose: 100 mg Atorvastatin Calcium (Lipitor -) 10 mg PO HS [facility] Last Admin: 03/14/19 21:30 Dose: 10 mg Brimonidine Tartrate (Alphagan P 0.1% -) 1 drop OU DAILY [facility] Last Admin: 03/14/19 10:26 Dose: 1 drop Docusate Sodium (Colace -) 100 mg PO TID [facility] Last Admin: 03/15/19 06:29 Dose: 100 mg Eplerenone (Eplerenone) 50 mg PO DAILY [facility] Last Admin: 03/14/19 10:26 Dose: 50 mg Folic Acid (Folic Acid -) 1 mg PO DAILY [facility] Last Admin: 03/14/19 10:07 Dose: 1 mg Glimepiride (Amaryl -) 1 mg PO DAILY@0700 [facility] Last Admin: 03/15/19 06:33 Dose: 1 mg Hydrochlorothiazide (Hctz -) 25 mg PO DAILY [facility] Last Admin: 03/14/19 10:07 Dose: 25 mg Potassium Chloride/Dextrose/Sod Cl (D5-1/2ns+20 Meq Kcl -) 20 meq in 1,000 mls @ 125 mls/hr IV ASDIR [facility] Potassium Chloride (Potassium Chloride 10 Meq Premix Ivpb -) 10 meq in 100 mls @ 100 mls/hr IVPB Q60M [facility] Stop: 03/15/19 10:44 Latanoprost (Xalatan 0.005% Eye Drops -) 1 drop OU [facility] Last Admin: 03/14/19 21:31 Dose: 1 drop Lisinopril (Prinivil) 20 mg PO DAILY [facility] Last Admin: 03/14/19 10:07 Dose: 20 mg Metoprolol Tartrate (Lopressor -) 25 mg PO BID [facility] Last Admin: 03/14/19 21:30 Dose: 25 mg Oxybutynin Chloride (Ditropan -) 5 mg PO HS [facility] Last Admin: 03/14/19 21:30 Dose: 5 mg Oxycodone HCl (Roxicodone -) 5 mg PO Q3H PRN PRN Reason: Mild Pain 1-3 Oxycodone HCl (Roxicodone -) 10 mg PO Q3H PRN PRN Reason: Moderate Pain 4-6 Last Admin: 03/13/19 17:51 Dose: 10 mg Oxycodone HCl (Oxycontin -) 10 mg PO BID [facility] Last Admin: 03/14/19 21:28 Dose: 10 mg Polyethylene Glycol (Miralax (For Daily Use) -) 17 gm PO BID [facility] Last Admin: 03/14/19 21:30 Dose: 17 gm Verapamil HCl (Calan Sr -) 240 mg PO DAILY [facility] Last Admin: 03/14/19 10:09 Dose: 240 mg - Objective Vital Signs: Vital Signs Temperature 97.6 F 03/15/19 06:00 Pulse Rate 87 03/15/19 06:00 Respiratory Rate 18 03/15/19 06:00 Blood Pressure 135/87 03/15/19 06:00 O2 Sat by Pulse Oximetry (%) 97 03/13/19 21:00 Constitutional: Yes: Well Nourished Eyes: Yes: WNL HENT: Yes: WNL Neck: Yes: WNL Respiratory: Yes: WNL Gastrointestinal: Yes: Distention, Hypoactive Bowel Sounds Genitourinary: Yes: WNL Musculoskeletal: Yes: Back Pain Extremities: Yes: WNL Edema: Yes Peripheral Pulses WNL: Yes Integumentary: Yes: WNL Wound/Incision: Yes: Dressing Dry and Intact Neurological: Yes: WNL ...Motor Strength: WNL Psychiatric: Yes: WNL Labs: CBC, BMP 03/15/19 05:35 03/15/19 05:35 Assessment/Plan -68 y/o man with DM, HTN, gout, and spinal stenosis with segmental instability admitted to the ICU for medical management s/p L2-S1 bilateral laminectomy. cont pain management. incentive spirometry. for I&D of surgical wound today. NPO -GI, DVT prophylaxis. -constipation: opioid induced. will get abdominal x-ray as still no BM -morbid obesity: weight loss and healthier lifestyle advised. -chronic gout: cont allopurinol. -HLD: on lipitor -acute on chronic anemia: on folic acid -type 2 DM: on RISS, amaryl -HTN/CHF: on lisinopril, lasix, HCTZ, metoprolol. monitor electrolytes carefully. -low anion gap: from reduced protein intake. -PT/OT/OB as tolerated -chronic glaucoma: on latanoprost -
[2019-03-15] MEDS ORDERED: PT OWN MED DRAWER 7, Y5N ONE (09:58)
[2019-03-15] MEDS: METOPROLOL TARTRATE 25 MG TABLET (FP) PO SCH ×2 (10:01→21:58)
[2019-03-15] MEDS: HYDROCHLOROTHIAZIDE 25 MG TABLET (FP) PO SCH (10:01)
[2019-03-15] MEDS: oxyCODONE HCL 10 MG SUSTAINED ACTING TABLET PO SCH ×2 (10:01→21:58)
[2019-03-15] MEDS: LISINOPRIL 20 MG TABLET (FP) PO SCH (10:01)
[2019-03-15] MEDS: EPLERENONE 25 MG TABLET PO SCH (10:02)
[2019-03-15] MEDS: POLYETHYLENE GLYCOL 3350 119 GM BTL PO SCH ×2 (10:02→22:01)
[2019-03-15] MEDS: KCL 10 MEQ IVPB 10 MEQ/100 ML INFUS.BAG IVPB SCH ×2 (10:03→12:12)
[2019-03-15] MEDS: BRIMONIDINE TARTRATE 0.1% OPHTHALMIC 5 ML BOTTLE OU SCH (10:04)
[2019-03-15] MEDS: ALLOPURINOL 100 MG TABLET (FP) PO SCH (10:04)
[2019-03-15] MEDS: VERAPAMIL HCL 240 MG E.R. TABLET PO SCH (10:04)
[2019-03-15] MEDS: FOLIC ACID 1 MG TABLET (FP) PO SCH (10:04)
[2019-03-15] MEDS ORDERED: fentaNYL CITRATE 250 MCG/5 ML VIAL ONE (11:18)
[2019-03-15] MEDS ORDERED: ROCURONIUM BROMIDE 50 MG/5 ML VIAL ONE ×2 (11:19→11:36)
[2019-03-15] MEDS ORDERED: PROPOFOL 20 ML ONE ×3 (11:19→13:31)
[2019-03-15] MEDS ORDERED: SUCCINYLCHOLINE CHLORIDE 200 MG/10 ML SYRINGE ONE ×2 (11:25→13:30)
[2019-03-15] MEDS ORDERED: BENZOIN TINCTURE SWABSTICK TP ONE (11:33)
[2019-03-15] MEDS ORDERED: VANCOMYCIN 1,000 MG VIAL (RESTRICTED TO ID ONLY) IVPB ONE (11:46)
[2019-03-15] MEDS ORDERED: ceFAZolin SODIUM 1 GM VIAL IVPB ONE ×2 (11:46)
[2019-03-15] MEDS ORDERED: MIDAZOLAM HCL 2 MG/2 ML SINGLE DOSE VIAL ONE ×3 (12:12→13:37)
[2019-03-15] MEDS ORDERED: KETOROLAC TROMETHAMINE 30 MG/1 ML VIAL ONE (12:12)
[2019-03-15] MEDS ORDERED: ONDANSETRON 4 MG/2 ML VIAL ONE (12:12)
[2019-03-15] MEDS ORDERED: DEXAMETHASONE SOD PHOSPHATE 4 MG/1 ML VIAL ONE (12:13)
[2019-03-15] MEDS ORDERED: VANCOMYCIN 1,000 MG VIAL (RESTRICTED TO ID ONLY) ONE (12:13)
[2019-03-15] MEDS ORDERED: ceFAZolin SODIUM 1 GM VIAL ONE ×2 (12:13)
--- NOTE | 2019-03-15 12:20 | SPA.POSTOP ---
- POST-OP NOTE POD #s/p L2-S1 PLIF No acute events since surgical procedure per RN notes. Pt continues to complain of incisional pain. States alot of fluid draining from the incision just had dressing changed this AM. Pt states he had episode of nausea and vomiting last night. Pt denies fevers, but admits to chills. Last Vital Signs Temp Pulse Resp BP Pulse Ox 97.6 F 87 18 135/87 97 03/15/19 06:00 03/15/19 06:00 03/15/19 06:00 03/15/19 06:00 03/13/19 21:00 CBC, BMP 03/15/19 05:35 03/15/19 05:35 Physical Exam General: No acute distress. Pulm: breathing comfortably Cor: Regular rhythm BACK: Incision dressing soaked with serous drainage LE: Soft, non-tender bilat. SCD's bilat. Problem List - Problems (1) Degenerative lumbar spinal stenosis Assessment/Plan: Plan - Pt WBC continues to be elevated as well as n/v, have concerns for wound infection possible CSF leak, will take pt to OR today for washout. -npo Case discussed with Dr. Hewitt who agrees with plan. Code(s): M48.061 - SPINAL STENOSIS, LUMBAR REGION WITHOUT NEUROGENIC MARY
[2019-03-15] MEDS ORDERED: GLYCOPYRROLATE 0.2 MG/1 ML VIAL ONE ×2 (12:52→12:53)
[2019-03-15] MEDS ORDERED: NEOSTIGMINE METHYLSULFATE 0.5 MG/1 ML - 10 ML MDV ONE (12:52)
[2019-03-15] MEDS ORDERED: PROPOFOL 1,000,000 MCG/100 ML VIAL IVPB SCH (14:00)
--- NOTE | 2019-03-15 14:02 | OP ---
Operative Note - Note: Operative Date: 03/15/19 Pre-Operative Diagnosis: elevated leukocytosis/wound drainage Operation: wound exploration/ washout and evaucation of hematoma, drain placement Surgeon: Dallas Hewitt Bobj Developer: Yumiko Leyva Anesthesiologist/EVENT ORGANIZER: Toby Roque Anesthesia: General Estimated Blood Loss (mls): 30 Fluid Volume Replaced (mls): 1,000 Operative Report Dictated: Yes
--- NOTE | 2019-03-15 14:04 | SURG ---
Surgery Research Greenhouse Supervisor Note Research Greenhouse Supervisor: Yumiko Leyva PA-C Date of Service: 03/15/19 Diagnosis: elevated leukocytosis/wound drainage Procedure: wound exploration/ washout and evacuation of hematoma, drain placement I was present for the entirety of the operative procedure. For further detail, please refer to operative report.
[2019-03-15] MEDS ORDERED: METOPROLOL TARTRATE 5 MG/5 ML VIAL IVPUSH ONE ×2 (15:45→15:47)
[2019-03-15] MEDS ORDERED: METOPROLOL TARTRATE 5 MG/5 ML VIAL ONE (15:46)
[2019-03-15 15:56] LABS: BLOOD UREA NITROGEN 14.7 mg/dL (7-18); CALCIUM 8.7 mg/dL (8.5-10.1); POTASSIUM 3.2 mmol/L (3.5-5.1)
--- NOTE | 2019-03-15 16:22 | CON.ID ---
Consult Consult Specialty:: infectious diseases Referred by:: Reason for Consultation:: leukocytosis,wound drainage - History of Present Illness Chief Complaint: pain History of Present Illness: Mr. Joe is a pleasant 68 y/o man with DM, HTN, gout, and spinal stenosis with segmental instability who underwent surgery on his spinal canal he underwent L2 to S1 Bilatral laminectomy. Interiano saba osteotomy. Instrumented L2 to S1 posterolateral arthrodesis post op patient was doing well then the wbc started increasing and the patient was having drainage from the wound. patient was taken to the operating room and underwent a washout of the wound currently patient feels ok - History Source History Provided By: Patient, Medical Record Limitations to Obtaining History: No Limitations - Alcohol/Substance Use Hx Alcohol Use: Yes (occassional) - Smoking History Smoking history: Never smoked Home Medications - Allergies Allergies/Adverse Reactions: Allergies Allergy/AdvReac Type Severity Reaction Status Date / Time No Known Allergies Allergy Verified 03/11/19 11:25 - Home Medications Home Medications: Ambulatory Orders Allopurinol [Zyloprim -] 100 mg PO DAILY 03/08/19 Eplerenone [Inspra] 50 mg PO DAILY 03/08/19 Folic Acid - 1 mg PO DAILY 03/08/19 Furosemide 40 mg PO ASDIR 03/08/19 Glimepiride [Amaryl -] 1 mg PO DAILY 03/08/19 Hydrochlorothiazide 25 mg PO DAILY 03/08/19 Latanoprost/Pf [Latanoprost 0.005% Eye Drop] 1 ml OU HS 03/08/19 Lisinopril 20 mg PO DAILY 03/08/19 Metoprolol Tartrate 25 mg PO BID 03/08/19 Oxybutynin Chloride [Oxybutynin Chloride ER] 5 mg PO HS 03/08/19 Oxycodone HCl/Acetaminophen [Endocet 7.5-325 mg Tablet] 1 each PO PRN PRN Simvastatin 10 mg PO HS 03/08/19 Verapamil HCl [Verapamil ER] 240 mg PO BID 03/08/19 Brimonidine Tartrate [Alphagan P 0.1% -] 1 drop OU DAILY 03/11/19 Review of Systems - Review of Systems Constitutional: reports: No Symptoms Eyes: reports: No Symptoms HENT: reports: No Symptoms Neck: reports: No Symptoms Cardiovascular: reports: No Symptoms Respiratory: reports: No Symptoms Gastrointestinal: reports: No Symptoms Genitourinary: reports: No Symptoms Musculoskeletal: reports: Other (neck pain) Integumentary: reports: No Symptoms Neurological: reports: No Symptoms Endocrine: reports: No Symptoms Hematology/Lymphatic: reports: No Symptoms Psychiatric: reports: No Symptoms Physical Exam Vital Signs: Vital Signs Temperature 99.2 F 03/15/19 13:47 Pulse Rate 85 03/15/19 16:00 Respiratory Rate 16 03/15/19 16:00 Blood Pressure 132/71 03/15/19 16:00 O2 Sat by Pulse Oximetry (%) 100 03/15/19 16:00 Constitutional: Yes: Well Nourished, No Distress, Calm Cardiovascular: Yes: Regular Rate and Rhythm Respiratory: Yes: Regular, CTA Bilaterally Gastrointestinal: Yes: Normal Bowel Sounds, Soft Musculoskeletal: Yes: WNL Extremities: Yes: WNL Wound/Incision: Yes: Dressing Dry and Intact, Other (drain in place) Psychiatric: Yes: Alert, Oriented Labs: CBC, BMP 03/15/19 05:35 03/15/19 15:15 Imaging - Results Chest X-ray: Report Reviewed, Image Reviewed X-ray: Report Reviewed, Image Reviewed Other: Report Reviewed, Image Reviewed Assessment/Plan -68 y/o man with DM, HTN, gout, and spinal stenosis with segmental instability s/p L2-S1 bilateral laminectomy. post washout with drain in place cx have been send from the OR i am going to start patient on zosyn we will wait for all the cx to be back and then decide the further plan patient also christiano esteban
[2019-03-15] MEDS ORDERED: POTASSIUM CHLORIDE TABS 20 MEQ TABLET.ER (FP) PO ONE ×2 (16:41→17:31)
[2019-03-15] MEDS ORDERED: KCL 10 MEQ IVPB 10 MEQ/100 ML INFUS.BAG IVPB SCH (17:00)
--- NOTE | 2019-03-15 17:10 | OP ---
DATE OF OPERATION: DATE OF DICTATION: 03/15/2019 SURGEON: Dallas Hewitt MD FOOD SERVICE ATTENDANT: THOMAS Gallagher PREOPERATIVE DIAGNOSIS: Hematoma, possible cerebrospinal fluid leak, lumbar spine. POSTOPERATIVE DIAGNOSIS: Retained hematoma. OPERATION PERFORMED: Irrigation, washout of hematoma, primary repair. ANESTHESIA: General. ANTIBIOTICS GIVEN: Ancef 3 g, that is 2 g preop and 1 g vancomycin. At the end of the procedure another gram of Ancef was given. DESCRIPTION OF PROCEDURE: Patient correctly identified, brought to the operating room, placed prone on a Gilberto frame. Routine intubation and nasogastric tube inserted. The skin was cleansed with Betadine scrub solution, wiped off with alcohol, DuraPrep applied. The wound was opened entirely and all retained sutures removed. This enabled visualization of a retained hematoma with thick blood clot. No signs of purulence. This was all completely lavaged, washed out with pulse lavage and bulb syringe. No excessive debridement necessary. Culture sticks were taken for microscopy, culture and sensitivity. The dural region which was sutured was sealed. Three sequential Valsalva maneuvers performed brought about no visualization of any CSF leakage. Small muscle bleeds were attended to with bipolar Bovie, but true definitive extensive bleeding region was not seen. The wounds were thoroughly lavaged, 2 drains inserted, 1 deep, 1 superficial. The tissues were closed as follows: Muscle 1 Vicryl, fascia 1 Vicryl, subcutaneous 1 and 2-0 Vicryl, skin fady. A sealed dressing applied. At the end of the procedure, 1 g tranexamic acid given. There was a generalized moistness to this wound. The 2 drains will be utilized and pulled appropriately. MD PEE Villalobos/[id number]
[2019-03-15] MEDS ORDERED: oxyCODONE HCL 5 MG TABLET PO PRN ×2 (17:26→17:28)
[2019-03-15] MEDS ORDERED: PIPERACILLIN/TAZOBACTAM 3.375 GM VIAL IVPB ONE (18:28)
[2019-03-15] MEDS ORDERED: DEXTROSE 5%-WATER - 50 ML IVPB ONE (18:29)
[2019-03-15] MEDS: SODIUM CHLORIDE 0.45%/POT 20 MEQ/1,000 ML INFUS.BAG IV SCH (18:31)
[2019-03-15] MEDS: PIPERACILLIN/TAZOB 3.375 GM 3.375 GM in DEXTROSE 5%-WATER - 50 ML IVPB SCH (18:33)
[2019-03-15] MEDS ORDERED: CEFAZOLIN 1 GM in DEXTROSE 5%-WATER - 50 ML IVPB SCH (20:00)
[2019-03-15] MEDS: ATORVASTATIN CA 10 MG TABLET (FP) PO SCH (21:58)
[2019-03-15] MEDS: OXYBUTYNIN CHLORIDE 5 MG TABLET PO SCH (21:58)
[2019-03-15] MEDS ORDERED: METOPROLOL TARTRATE 5 MG/5 ML VIAL IVPUSH SCH (22:00)
[2019-03-15] MEDS: INSULIN SLIDING SCALE (NOVOLOG) 1 VIAL SQ SCH (22:01)
[2019-03-15] MEDS: LATANOPROST 0.005% OPHTH SOLN 2.5ML BOTTLE OU SCH (22:02)
[2019-03-16] MEDS ORDERED: VANCOMYCIN 1 GRAM (PRE-DOCKED) 1,000 MG/250 ML BAG IVPB ONE (00:01)
[2019-03-16] MEDS: ACETAMINOPHEN 325 MG TABLET (FP) PO SCH ×4 (00:11→17:43)
[2019-03-16] MEDS ORDERED: PIPERACILLIN/TAZOBACTAM 3.375 GM VIAL IVPB ONE ×3 (01:18→16:41)
[2019-03-16] MEDS ORDERED: DEXTROSE 5%-WATER - 50 ML IVPB ONE ×3 (01:19→16:41)
[2019-03-16] MEDS: PIPERACILLIN/TAZOB 3.375 GM 3.375 GM in DEXTROSE 5%-WATER - 50 ML IVPB SCH ×3 (02:13→18:00)
[2019-03-16] MEDS: DOCUSATE SODIUM 100 MG CAPSULE (FP) PO SCH ×3 (06:10→22:18)
[2019-03-16] MEDS: INSULIN SLIDING SCALE (NOVOLOG) 1 VIAL SQ SCH ×4 (06:10→22:18)
[2019-03-16 08:22] LABS: BASO % 0.1 % (0-2.0); EOS % 0.4 % (0-4.5); HEMATOCRIT 28.6 % (35.4-49); HEMOGLOBIN 9.2 GM/dL (11.7-16.9); LYMPH % 13.5 % (8-40); MCH 22.9 pg (25.7-33.7); MEAN CELL VOLUME 71.6 fl (80-96); MEAN PLT VOLUME 9.6 fl (7.5-11.1); MONO % 14.9 % (3.8-10.2); NEUT % 71.1 % (42.8-82.8); WHITE BLOOD COUNT 14.4 K/mm3 (4.0-10.0)
[2019-03-16 08:59] LABS: BLOOD UREA NITROGEN 17.5 mg/dL (7-18); CALCIUM 7.6 mg/dL (8.5-10.1); CREATININE 0.9 mg/dL (0.55-1.3); MAGNESIUM 2.7 mg/dL (1.8-2.4); PHOSPHOROUS 2.6 mg/dL (2.5-4.9); POTASSIUM 3.7 mmol/L (3.5-5.1)
[2019-03-16 09:16] LABS: PLATELET COUNT 151 K/MM3 (134-434)
[2019-03-16] MEDS: LISINOPRIL 20 MG TABLET (FP) PO SCH (10:58)
[2019-03-16] MEDS: ALLOPURINOL 100 MG TABLET (FP) PO SCH (10:58)
[2019-03-16] MEDS: METOPROLOL TARTRATE 25 MG TABLET (FP) PO SCH ×2 (10:58→22:18)
[2019-03-16] MEDS: HYDROCHLOROTHIAZIDE 25 MG TABLET (FP) PO SCH (10:58)
[2019-03-16] MEDS: FOLIC ACID 1 MG TABLET (FP) PO SCH (10:58)
[2019-03-16] MEDS: VERAPAMIL HCL 240 MG E.R. TABLET PO SCH (10:59)
[2019-03-16] MEDS: oxyCODONE HCL 10 MG SUSTAINED ACTING TABLET PO SCH ×2 (10:59→22:13)
[2019-03-16] MEDS: POLYETHYLENE GLYCOL 3350 119 GM BTL PO SCH ×2 (11:01→22:23)
[2019-03-16] MEDS: EPLERENONE 25 MG TABLET PO SCH (11:02)
[2019-03-16] MEDS: BRIMONIDINE TARTRATE 0.1% OPHTHALMIC 5 ML BOTTLE OU SCH (11:02)
--- NOTE | 2019-03-16 11:22 | PN ---
Progress Note, Physician Chief Complaint: POD1 s/p I&D washout and exploration of back wound - Current Medication List Current Medications: Active Medications Acetaminophen (Tylenol -) 650 mg PO Q6H [facility] Last Admin: 03/16/19 06:09 Dose: 650 mg Allopurinol (Zyloprim -) 100 mg PO DAILY [facility] Last Admin: 03/16/19 10:58 Dose: 100 mg Atorvastatin Calcium (Lipitor -) 10 mg PO HS [facility] Last Admin: 03/15/19 21:58 Dose: 10 mg Brimonidine Tartrate (Alphagan P 0.1% -) 1 drop OU DAILY [facility] Last Admin: 03/16/19 11:02 Dose: 1 drop Docusate Sodium (Colace -) 100 mg PO TID [facility] Last Admin: 03/16/19 06:10 Dose: 100 mg Eplerenone (Eplerenone) 50 mg PO DAILY [facility] Last Admin: 03/16/19 11:02 Dose: 50 mg Folic Acid (Folic Acid -) 1 mg PO DAILY [facility] Last Admin: 03/16/19 10:58 Dose: 1 mg Hydrochlorothiazide (Hctz -) 25 mg PO DAILY [facility] Last Admin: 03/16/19 10:58 Dose: 25 mg Piperacillin Sod/Tazobactam (Sod 3.375 gm/ Dextrose) 50 mls @ 100 mls/hr IVPB Q8H-IV [facility]; Protocol Last Admin: 03/16/19 10:57 Dose: 100 mls/hr Potassium Chloride/Sodium Chloride (1/2ns+20meq Kcl) 20 meq in 1,000 mls @ 125 mls/hr IV ASDIR [facility] Last Admin: 03/15/19 18:31 Dose: 125 mls/hr Insulin Aspart (Novolog Vial Sliding Scale -) 1 vial SQ ACHS [facility]; Protocol Last Admin: 03/16/19 06:10 Dose: Not Given Latanoprost (Xalatan 0.005% Eye Drops -) 1 drop OU HS [facility] Last Admin: 03/15/19 22:02 Dose: 1 drop Lisinopril (Prinivil) 20 mg PO DAILY [facility] Last Admin: 03/16/19 10:58 Dose: 20 mg Metoprolol Tartrate (Lopressor -) 25 mg PO BID [facility] Last Admin: 03/16/19 10:58 Dose: 25 mg Oxybutynin Chloride (Ditropan -) 5 mg PO HS [facility] Last Admin: 03/15/19 21:58 Dose: 5 mg Oxycodone HCl (Roxicodone -) 10 mg PO Q3H PRN PRN Reason: PAIN LEVEL 6-10 Oxycodone HCl (Roxicodone -) 5 mg PO Q3H PRN PRN Reason: PAIN LEVEL 1-5 Last Admin: 03/16/19 06:10 Dose: 5 mg Oxycodone HCl (Oxycontin -) 10 mg PO BID [facility] Last Admin: 03/16/19 10:59 Dose: 10 mg Polyethylene Glycol (Miralax (For Daily Use) -) 17 gm PO BID [facility] Last Admin: 03/16/19 11:01 Dose: 17 grams Verapamil HCl (Calan Sr -) 240 mg PO DAILY [facility] Last Admin: 03/16/19 10:59 Dose: 240 mg - Objective Vital Signs: Vital Signs Temperature 98.1 F 03/16/19 07:00 Pulse Rate 67 03/16/19 07:00 Respiratory Rate 20 03/16/19 07:00 Blood Pressure 107/64 03/16/19 07:00 O2 Sat by Pulse Oximetry (%) 94 L 03/15/19 17:00 Labs: CBC, BMP 03/16/19 07:00 03/16/19 07:00 Assessment/Plan doing well after GA for back wound exploration. No N/V, pain is well controlled , patient has no c/o. No anesthetic issues/complications noted.
--- NOTE | 2019-03-16 13:28 | PN ---
Progress Note, Physician History of Present Illness: Pt seen and examined. States he feels well, pain is controlled. Remains afebrile. - Current Medication List Current Medications: Active Medications Acetaminophen (Tylenol -) 650 mg PO Q6H [facility] Last Admin: 03/16/19 13:04 Dose: Not Given Allopurinol (Zyloprim -) 100 mg PO DAILY [facility] Last Admin: 03/16/19 10:58 Dose: 100 mg Atorvastatin Calcium (Lipitor -) 10 mg PO HS [facility] Last Admin: 03/15/19 21:58 Dose: 10 mg Brimonidine Tartrate (Alphagan P 0.1% -) 1 drop OU DAILY [facility] Last Admin: 03/16/19 11:02 Dose: 1 drop Docusate Sodium (Colace -) 100 mg PO TID [facility] Last Admin: 03/16/19 06:10 Dose: 100 mg Eplerenone (Eplerenone) 50 mg PO DAILY [facility] Last Admin: 03/16/19 11:02 Dose: 50 mg Folic Acid (Folic Acid -) 1 mg PO DAILY [facility] Last Admin: 03/16/19 10:58 Dose: 1 mg Hydrochlorothiazide (Hctz -) 25 mg PO DAILY [facility] Last Admin: 03/16/19 10:58 Dose: 25 mg Piperacillin Sod/Tazobactam (Sod 3.375 gm/ Dextrose) 50 mls @ 100 mls/hr IVPB Q8H-IV [facility]; Protocol Last Admin: 03/16/19 10:57 Dose: 100 mls/hr Potassium Chloride/Sodium Chloride (1/2ns+20meq Kcl) 20 meq in 1,000 mls @ 125 mls/hr IV ASDIR [facility] Last Admin: 03/15/19 18:31 Dose: 125 mls/hr Insulin Aspart (Novolog Vial Sliding Scale -) 1 vial SQ ACHS [facility]; Protocol Last Admin: 03/16/19 12:24 Dose: Not Given Latanoprost (Xalatan 0.005% Eye Drops -) 1 drop OU HS [facility] Last Admin: 03/15/19 22:02 Dose: 1 drop Lisinopril (Prinivil) 20 mg PO DAILY [facility] Last Admin: 03/16/19 10:58 Dose: 20 mg Metoprolol Tartrate (Lopressor -) 25 mg PO BID [facility] Last Admin: 03/16/19 10:58 Dose: 25 mg Oxybutynin Chloride (Ditropan -) 5 mg PO HS [facility] Last Admin: 03/15/19 21:58 Dose: 5 mg Oxycodone HCl (Roxicodone -) 10 mg PO Q3H PRN PRN Reason: PAIN LEVEL 6-10 Oxycodone HCl (Roxicodone -) 5 mg PO Q3H PRN PRN Reason: PAIN LEVEL 1-5 Last Admin: 03/16/19 06:10 Dose: 5 mg Oxycodone HCl (Oxycontin -) 10 mg PO BID [facility] Last Admin: 03/16/19 10:59 Dose: 10 mg Polyethylene Glycol (Miralax (For Daily Use) -) 17 gm PO BID [facility] Last Admin: 03/16/19 11:01 Dose: 17 grams Verapamil HCl (Calan Sr -) 240 mg PO DAILY [facility] Last Admin: 03/16/19 10:59 Dose: 240 mg - Objective Vital Signs: Vital Signs Temperature 98.1 F 03/16/19 07:00 Pulse Rate 67 03/16/19 07:00 Respiratory Rate 20 03/16/19 07:00 Blood Pressure 107/64 03/16/19 07:00 O2 Sat by Pulse Oximetry (%) 94 L 03/15/19 17:00 Constitutional: Yes: No Distress, Calm Cardiovascular: Yes: Regular Rate and Rhythm Respiratory: Yes: Regular Gastrointestinal: Yes: Normal Bowel Sounds, Soft Musculoskeletal: Yes: Back Pain (controlled) Extremities: Yes: WNL Wound/Incision: Yes: Dressing Dry and Intact (dressing intact, +drain in place) Neurological: Yes: Alert, Oriented Labs: CBC, BMP 03/16/19 07:00 03/16/19 07:00 Microbiology 03/15/19 13:30 Incision Gram Stain - Final 03/15/19 13:30 Incision Wound Culture - Preliminary NO GROWTH OBTAINED AFTER 24 HOURS INCUBATION, REINCUBATED. - ....Imaging Other: Report Reviewed Problem List - Problems (1) Degenerative lumbar spinal stenosis Code(s): M48.061 - SPINAL STENOSIS, LUMBAR REGION WITHOUT NEUROGENIC MARY (2) Diabetes Code(s): E11.9 - TYPE 2 DIABETES MELLITUS WITHOUT COMPLICATIONS (3) Gout Code(s): M10.9 - GOUT, UNSPECIFIED (4) HTN (hypertension) Code(s): I10 - ESSENTIAL (PRIMARY) HYPERTENSION (5) Kyphosis Code(s): M40.209 - UNSPECIFIED KYPHOSIS, SITE UNSPECIFIED Assessment/Plan Leukocytosis Spinal stenosis s/p L2-S1 b/l laminectomy/osteotomy s/p I+D/washout POD#1 DM Gout HTN -- pt doing well -- wbc trending down -- continue antibiotics empirically for now -- f/u final wound culture results, no growth in 24h
--- NOTE | 2019-03-16 16:52 | PN ---
Progress Note, Physician Chief Complaint: back pain - Current Medication List Current Medications: Active Medications Acetaminophen (Tylenol -) 650 mg PO Q6H [facility] Last Admin: 03/16/19 13:04 Dose: Not Given Allopurinol (Zyloprim -) 100 mg PO DAILY [facility] Last Admin: 03/16/19 10:58 Dose: 100 mg Atorvastatin Calcium (Lipitor -) 10 mg PO HS [facility] Last Admin: 03/15/19 21:58 Dose: 10 mg Brimonidine Tartrate (Alphagan P 0.1% -) 1 drop OU DAILY [facility] Last Admin: 03/16/19 11:02 Dose: 1 drop Docusate Sodium (Colace -) 100 mg PO TID [facility] Last Admin: 03/16/19 15:19 Dose: 100 mg Eplerenone (Eplerenone) 50 mg PO DAILY [facility] Last Admin: 03/16/19 11:02 Dose: 50 mg Folic Acid (Folic Acid -) 1 mg PO DAILY [facility] Last Admin: 03/16/19 10:58 Dose: 1 mg Hydrochlorothiazide (Hctz -) 25 mg PO DAILY [facility] Last Admin: 03/16/19 10:58 Dose: 25 mg Piperacillin Sod/Tazobactam (Sod 3.375 gm/ Dextrose) 50 mls @ 100 mls/hr IVPB Q8H-IV [facility]; Protocol Last Admin: 03/16/19 10:57 Dose: 100 mls/hr Potassium Chloride/Sodium Chloride (1/2ns+20meq Kcl) 20 meq in 1,000 mls @ 125 mls/hr IV ASDIR [facility] Last Admin: 03/15/19 18:31 Dose: 125 mls/hr Insulin Aspart (Novolog Vial Sliding Scale -) 1 vial SQ ACHS [facility]; Protocol Last Admin: 03/16/19 12:24 Dose: Not Given Latanoprost (Xalatan 0.005% Eye Drops -) 1 drop OU HS [facility] Last Admin: 03/15/19 22:02 Dose: 1 drop Lisinopril (Prinivil) 20 mg PO DAILY [facility] Last Admin: 03/16/19 10:58 Dose: 20 mg Metoprolol Tartrate (Lopressor -) 25 mg PO BID [facility] Last Admin: 03/16/19 10:58 Dose: 25 mg Oxybutynin Chloride (Ditropan -) 5 mg PO HS [facility] Last Admin: 03/15/19 21:58 Dose: 5 mg Oxycodone HCl (Roxicodone -) 10 mg PO Q3H PRN PRN Reason: PAIN LEVEL 6-10 Oxycodone HCl (Roxicodone -) 5 mg PO Q3H PRN PRN Reason: PAIN LEVEL 1-5 Last Admin: 03/16/19 06:10 Dose: 5 mg Oxycodone HCl (Oxycontin -) 10 mg PO BID [facility] Last Admin: 03/16/19 10:59 Dose: 10 mg Polyethylene Glycol (Miralax (For Daily Use) -) 17 gm PO BID [facility] Last Admin: 03/16/19 11:01 Dose: 17 grams Verapamil HCl (Calan Sr -) 240 mg PO DAILY [facility] Last Admin: 03/16/19 10:59 Dose: 240 mg - Objective Vital Signs: Vital Signs Temperature 98.0 F 03/16/19 14:43 Pulse Rate 67 03/16/19 14:43 Respiratory Rate 18 03/16/19 14:43 Blood Pressure 103/50 L 03/16/19 14:43 O2 Sat by Pulse Oximetry (%) 94 L 03/15/19 17:00 Constitutional: Yes: Well Nourished, Obese Eyes: Yes: WNL HENT: Yes: WNL Neck: Yes: WNL Cardiovascular: Yes: WNL Respiratory: Yes: WNL Gastrointestinal: Yes: Abdomen, Obese, Distention, Hypoactive Bowel Sounds Musculoskeletal: Yes: WNL Extremities: Yes: WNL Edema: No Peripheral Pulses WNL: Yes Integumentary: Yes: WNL Wound/Incision: Yes: Clean/Dry, Well Approximated, Dressing Dry and Intact Neurological: Yes: WNL ...Motor Strength: WNL Psychiatric: Yes: WNL Labs: CBC, BMP 03/16/19 07:00 03/16/19 07:00 Assessment/Plan -68 y/o man with DM, HTN, gout, and spinal stenosis with segmental instability admitted to the ICU for medical management s/p L2-S1 bilateral laminectomy. cont pain management. incentive spirometry. for I&D of surgical wound on 03/15. IV antibiotics started. ID eval appreciated. -GI, DVT prophylaxis. -constipation, SBO? NGT for decompression was planned yesterday but Pt had large BM yesterday. today, however, he is again c/o no gas and no BM. abdominal CT ordered. -morbid obesity: weight loss and healthier lifestyle advised. -chronic gout: cont allopurinol. -HLD: on lipitor -acute on chronic anemia: on folic acid -type 2 DM: on RISS. hold amaryl as it can exacerbate hypoglycemia as a sulfonylurea medication, -HTN/CHF: on lisinopril, lasix, HCTZ, metoprolol. monitor electrolytes carefully. -low anion gap: from reduced protein intake. -PT/OT/OB as tolerated -chronic glaucoma: on latanoprost -assessment and plan discussed with pt and medical staff. labwork and meds reviewed. phone calls answered throughout the dy. 40 min -
[2019-03-16] MEDS: SODIUM CHLORIDE 0.45%/POT 20 MEQ/1,000 ML INFUS.BAG IV SCH (17:44)
[2019-03-16] MEDS: oxyCODONE HCL 5 MG TABLET PO PRN (18:07)
[2019-03-16] MEDS: ATORVASTATIN CA 10 MG TABLET (FP) PO SCH (22:13)
[2019-03-16] MEDS: OXYBUTYNIN CHLORIDE 5 MG TABLET PO SCH (22:18)
[2019-03-16] MEDS: LATANOPROST 0.005% OPHTH SOLN 2.5ML BOTTLE OU SCH (22:19)
[2019-03-17] MEDS: ACETAMINOPHEN 325 MG TABLET (FP) PO SCH ×4 (00:28→17:43)
[2019-03-17] MEDS: SODIUM CHLORIDE 0.45%/POT 20 MEQ/1,000 ML INFUS.BAG IV SCH ×3 (00:32→21:29)
[2019-03-17] MEDS ORDERED: PIPERACILLIN/TAZOBACTAM 3.375 GM VIAL IVPB ONE ×2 (01:18→16:56)
[2019-03-17] MEDS ORDERED: DEXTROSE 5%-WATER - 50 ML IVPB ONE ×2 (01:18→16:56)
[2019-03-17] MEDS: PIPERACILLIN/TAZOB 3.375 GM 3.375 GM in DEXTROSE 5%-WATER - 50 ML IVPB SCH ×3 (01:47→17:34)
[2019-03-17] MEDS: oxyCODONE HCL 5 MG TABLET PO PRN ×2 (05:33→14:19)
[2019-03-17] MEDS: DOCUSATE SODIUM 100 MG CAPSULE (FP) PO SCH ×3 (05:34→21:28)
[2019-03-17] MEDS: INSULIN SLIDING SCALE (NOVOLOG) 1 VIAL SQ SCH ×4 (06:11→21:28)
[2019-03-17] MEDS ORDERED: PT OWN MED DRAWER 7, Y5N ONE ×4 (06:51→20:54)
[2019-03-17 07:50] LABS: ALBUMIN 2.6 g/dl (3.4-5.0); BILIRUBIN,TOTAL 0.5 mg/dL (0.2-1); BLOOD UREA NITROGEN 12.1 mg/dL (7-18); CALCIUM 8.1 mg/dL (8.5-10.1); CREATININE 0.9 mg/dL (0.55-1.3); POTASSIUM 3.6 mmol/L (3.5-5.1); TOT PROT 5.8 g/dl (6.4-8.2)
[2019-03-17 07:58] LABS: BASO % 0.4 % (0-2.0); EOS % 2.2 % (0-4.5); HEMATOCRIT 32.4 % (35.4-49); HEMOGLOBIN 10.2 GM/dL (11.7-16.9); LYMPH % 17.9 % (8-40); MCH 23.1 pg (25.7-33.7); MCHC 31.5 g/dl (32.0-35.9); MEAN CELL VOLUME 73.2 fl (80-96); MEAN PLT VOLUME 9.7 fl (7.5-11.1); MONO % 14.9 % (3.8-10.2); NEUT % 64.6 % (42.8-82.8); PLATELET COUNT 171 K/MM3 (134-434); RBC 4.42 M/mm3 (4.00-5.60); RDW 13.8 % (11.9-15.9); WHITE BLOOD COUNT 10.7 K/mm3 (4.0-10.0)
--- NOTE | 2019-03-17 10:35 | PN ---
Progress Note, Physician Chief Complaint: back pain - Current Medication List Current Medications: Active Medications Acetaminophen (Tylenol -) 650 mg PO Q6H [facility] Last Admin: 03/17/19 05:34 Dose: 650 mg Allopurinol (Zyloprim -) 100 mg PO DAILY [facility] Last Admin: 03/16/19 10:58 Dose: 100 mg Atorvastatin Calcium (Lipitor -) 10 mg PO HS [facility] Last Admin: 03/16/19 22:13 Dose: 10 mg Brimonidine Tartrate (Alphagan P 0.1% -) 1 drop OU DAILY [facility] Last Admin: 03/16/19 11:02 Dose: 1 drop Docusate Sodium (Colace -) 100 mg PO TID [facility] Last Admin: 03/17/19 05:34 Dose: 100 mg Eplerenone (Eplerenone) 50 mg PO DAILY [facility] Last Admin: 03/16/19 11:02 Dose: 50 mg Folic Acid (Folic Acid -) 1 mg PO DAILY [facility] Last Admin: 03/16/19 10:58 Dose: 1 mg Hydrochlorothiazide (Hctz -) 25 mg PO DAILY [facility] Last Admin: 03/16/19 10:58 Dose: 25 mg Piperacillin Sod/Tazobactam (Sod 3.375 gm/ Dextrose) 50 mls @ 100 mls/hr IVPB Q8H-IV [facility]; Protocol Last Admin: 03/17/19 01:47 Dose: 100 mls/hr Potassium Chloride/Sodium Chloride (1/2ns+20meq Kcl) 20 meq in 1,000 mls @ 125 mls/hr IV ASDIR [facility] Last Admin: 03/17/19 00:32 Dose: 125 mls/hr Insulin Aspart (Novolog Vial Sliding Scale -) 1 vial SQ ACHS [facility]; Protocol Last Admin: 03/17/19 06:11 Dose: Not Given Latanoprost (Xalatan 0.005% Eye Drops -) 1 drop OU HS [facility] Last Admin: 03/16/19 22:19 Dose: 1 drop Lisinopril (Prinivil) 20 mg PO DAILY [facility] Last Admin: 03/16/19 10:58 Dose: 20 mg Metoprolol Tartrate (Lopressor -) 25 mg PO BID [facility] Last Admin: 03/16/19 22:18 Dose: 25 mg Oxybutynin Chloride (Ditropan -) 5 mg PO HS [facility] Last Admin: 03/16/19 22:18 Dose: 5 mg Oxycodone HCl (Roxicodone -) 10 mg PO Q3H PRN PRN Reason: PAIN LEVEL 6-10 Last Admin: 03/17/19 05:33 Dose: 10 mg Oxycodone HCl (Roxicodone -) 5 mg PO Q3H PRN PRN Reason: PAIN LEVEL 1-5 Last Admin: 03/16/19 06:10 Dose: 5 mg Oxycodone HCl (Oxycontin -) 10 mg PO BID [facility] Last Admin: 03/16/19 22:13 Dose: 10 mg Polyethylene Glycol (Miralax (For Daily Use) -) 17 gm PO BID [facility] Last Admin: 03/16/19 22:23 Dose: 17 grams Verapamil HCl (Calan Sr -) 240 mg PO DAILY [facility] Last Admin: 03/16/19 10:59 Dose: 240 mg - Objective Vital Signs: Vital Signs Temperature 98.2 F 03/17/19 06:00 Pulse Rate 59 L 03/17/19 06:00 Respiratory Rate 18 03/17/19 06:00 Blood Pressure 131/66 03/17/19 06:00 O2 Sat by Pulse Oximetry (%) 94 L 03/15/19 17:00 Constitutional: Yes: Well Nourished, Obese Eyes: Yes: WNL HENT: Yes: WNL Neck: Yes: WNL Cardiovascular: Yes: WNL Respiratory: Yes: WNL Gastrointestinal: Yes: Distention, Hypoactive Bowel Sounds Genitourinary: Yes: WNL Musculoskeletal: Yes: Back Pain Extremities: Yes: WNL Edema: Yes Peripheral Pulses WNL: Yes Integumentary: Yes: WNL Wound/Incision: Yes: Clean/Dry, Well Approximated, Dressing Dry and Intact Neurological: Yes: WNL ...Motor Strength: WNL Psychiatric: Yes: WNL Labs: CBC, BMP 03/17/19 06:30 03/17/19 06:30 Assessment/Plan -68 y/o man with DM, HTN, gout, and spinal stenosis with segmental instability admitted to the ICU for medical management s/p L2-S1 bilateral laminectomy. cont pain management. incentive spirometry. for I&D of surgical wound on 03/15. IV antibiotics started. ID eval appreciated. -GI, DVT prophylaxis. -constipation, SBO? awaiting abdominal CR results. Pt now ways he has the urge to defecate. -morbid obesity: weight loss and healthier lifestyle advised. -chronic gout: cont allopurinol. -HLD: on lipitor -acute on chronic anemia: on folic acid -type 2 DM: on RISS. hold amaryl as it can exacerbate hypoglycemia as a sulfonylurea class medication. -HTN/CHF: on lisinopril, lasix, HCTZ, metoprolol. monitor electrolytes carefully. -low anion gap: from reduced protein intake. -PT/OT/OB as tolerated -chronic glaucoma: on latanoprost -assessment and plan discussed with pt and medical staff. labwork and meds reviewed. phone calls answered throughout the day. 40 min -
[2019-03-17] MEDS: ALLOPURINOL 100 MG TABLET (FP) PO SCH (11:05)
[2019-03-17] MEDS: LISINOPRIL 20 MG TABLET (FP) PO SCH (11:05)
[2019-03-17] MEDS: HYDROCHLOROTHIAZIDE 25 MG TABLET (FP) PO SCH (11:05)
[2019-03-17] MEDS: FOLIC ACID 1 MG TABLET (FP) PO SCH (11:05)
[2019-03-17] MEDS: oxyCODONE HCL 10 MG SUSTAINED ACTING TABLET PO SCH ×2 (11:06→21:27)
[2019-03-17] MEDS: VERAPAMIL HCL 240 MG E.R. TABLET PO SCH (11:06)
[2019-03-17] MEDS: POLYETHYLENE GLYCOL 3350 119 GM BTL PO SCH ×2 (11:07→21:34)
[2019-03-17] MEDS: METOPROLOL TARTRATE 25 MG TABLET (FP) PO SCH ×2 (11:11→21:28)
[2019-03-17] MEDS: EPLERENONE 25 MG TABLET PO SCH (11:11)
[2019-03-17] MEDS: BRIMONIDINE TARTRATE 0.1% OPHTHALMIC 5 ML BOTTLE OU SCH (11:13)
--- NOTE | 2019-03-17 14:23 | PN ---
Progress Note (short form) - Note Progress Note: POD#2 Post Iand D Comfortable C/O incisional pain No leg pain Walked in the room Sitting in chair Problem Wound dry Drains in situ O/E Vitals at baseline See chart Abd Soft Passed stool Distension abdomen due to gas No tenderness guarding Neuro at baseline PLAN Continue medical and nursing mx PT mobilize FWBAT Pain mx Leave wound sealed dressing Review tomorrow re removal of drains
--- NOTE | 2019-03-17 14:26 | PN ---
Progress Note, Physician History of Present Illness: Pt has some back pain. CT A/P results noted. Has some abdominal bloating but had small BM earlier and is passing gas. Remains afebrile, wbc continues to trend down. - Current Medication List Current Medications: Active Medications Acetaminophen (Tylenol -) 650 mg PO Q6H [facility] Last Admin: 03/17/19 12:30 Dose: Not Given Allopurinol (Zyloprim -) 100 mg PO DAILY [facility] Last Admin: 03/17/19 11:05 Dose: 100 mg Atorvastatin Calcium (Lipitor -) 10 mg PO HS [facility] Last Admin: 03/16/19 22:13 Dose: 10 mg Brimonidine Tartrate (Alphagan P 0.1% -) 1 drop OU DAILY [facility] Last Admin: 03/17/19 11:13 Dose: 1 drop Docusate Sodium (Colace -) 100 mg PO TID [facility] Last Admin: 03/17/19 14:18 Dose: 100 mg Eplerenone (Eplerenone) 50 mg PO DAILY [facility] Last Admin: 03/17/19 11:11 Dose: 50 mg Folic Acid (Folic Acid -) 1 mg PO DAILY [facility] Last Admin: 03/17/19 11:05 Dose: 1 mg Hydrochlorothiazide (Hctz -) 25 mg PO DAILY [facility] Last Admin: 03/17/19 11:05 Dose: 25 mg Piperacillin Sod/Tazobactam (Sod 3.375 gm/ Dextrose) 50 mls @ 100 mls/hr IVPB Q8H-IV [facility]; Protocol Last Admin: 03/17/19 12:09 Dose: 100 mls/hr Potassium Chloride/Sodium Chloride (1/2ns+20meq Kcl) 20 meq in 1,000 mls @ 125 mls/hr IV ASDIR [facility] Last Admin: 03/17/19 00:32 Dose: 125 mls/hr Insulin Aspart (Novolog Vial Sliding Scale -) 1 vial SQ ACHS [facility]; Protocol Last Admin: 03/17/19 12:30 Dose: Not Given Latanoprost (Xalatan 0.005% Eye Drops -) 1 drop OU HS [facility] Last Admin: 03/16/19 22:19 Dose: 1 drop Lisinopril (Prinivil) 20 mg PO DAILY [facility] Last Admin: 03/17/19 11:05 Dose: 20 mg Metoprolol Tartrate (Lopressor -) 25 mg PO BID [facility] Last Admin: 03/17/19 11:11 Dose: 25 mg Oxybutynin Chloride (Ditropan -) 5 mg PO HS [facility] Last Admin: 03/16/19 22:18 Dose: 5 mg Oxycodone HCl (Roxicodone -) 10 mg PO Q3H PRN PRN Reason: PAIN LEVEL 6-10 Last Admin: 03/17/19 14:19 Dose: 10 mg Oxycodone HCl (Roxicodone -) 5 mg PO Q3H PRN PRN Reason: PAIN LEVEL 1-5 Last Admin: 03/16/19 06:10 Dose: 5 mg Oxycodone HCl (Oxycontin -) 10 mg PO BID [facility] Last Admin: 03/17/19 11:06 Dose: 10 mg Polyethylene Glycol (Miralax (For Daily Use) -) 17 gm PO BID [facility] Last Admin: 03/17/19 11:07 Dose: 17 grams Verapamil HCl (Calan Sr -) 240 mg PO DAILY [facility] Last Admin: 03/17/19 11:06 Dose: 240 mg - Objective Vital Signs: Vital Signs Temperature 98.2 F 03/17/19 06:00 Pulse Rate 59 L 03/17/19 06:00 Respiratory Rate 18 03/17/19 06:00 Blood Pressure 131/66 03/17/19 06:00 O2 Sat by Pulse Oximetry (%) 94 L 03/15/19 17:00 Constitutional: Yes: No Distress, Calm Cardiovascular: Yes: Regular Rate and Rhythm Respiratory: Yes: CTA Bilaterally Gastrointestinal: Yes: Normal Bowel Sounds, Soft, Distention Genitourinary: Yes: WNL Musculoskeletal: Yes: Back Pain Extremities: Yes: WNL Integumentary: Yes: WNL Wound/Incision: Yes: Dressing Dry and Intact Neurological: Yes: Alert, Oriented Labs: CBC, BMP 03/17/19 06:30 03/17/19 06:30 Microbiology 03/15/19 13:30 Incision Gram Stain - Final 03/15/19 13:30 Incision Wound Culture - Final NO GROWTH AFTER 48 HOURS INCUBATION - ....Imaging Cat Scan: Report Reviewed Problem List - Problems (1) Degenerative lumbar spinal stenosis Code(s): M48.061 - SPINAL STENOSIS, LUMBAR REGION WITHOUT NEUROGENIC MARY (2) Diabetes Code(s): E11.9 - TYPE 2 DIABETES MELLITUS WITHOUT COMPLICATIONS (3) Gout Code(s): M10.9 - GOUT, UNSPECIFIED (4) HTN (hypertension) Code(s): I10 - ESSENTIAL (PRIMARY) HYPERTENSION (5) Kyphosis Code(s): M40.209 - UNSPECIFIED KYPHOSIS, SITE UNSPECIFIED Assessment/Plan Leukocytosis Spinal stenosis s/p L2-S1 b/l laminectomy/osteotomy s/p I+D/washout POD#2 DM Gout HTN -- wbc trending down, remains afebrile -- continue antibiotics for now -- wound culture results no growth so far -- had small BM today, passing gas -- neurosurgical f/u continue monitor
[2019-03-17] MEDS: ATORVASTATIN CA 10 MG TABLET (FP) PO SCH (21:28)
[2019-03-17] MEDS: OXYBUTYNIN CHLORIDE 5 MG TABLET PO SCH (21:28)
[2019-03-17] MEDS: LATANOPROST 0.005% OPHTH SOLN 2.5ML BOTTLE OU SCH (21:30)
[2019-03-18] MEDS: ACETAMINOPHEN 325 MG TABLET (FP) PO SCH ×4 (00:15→17:54)
[2019-03-18] MEDS ORDERED: PIPERACILLIN/TAZOBACTAM 3.375 GM VIAL IVPB ONE ×3 (01:17→17:44)
[2019-03-18] MEDS ORDERED: DEXTROSE 5%-WATER - 50 ML IVPB ONE ×3 (01:17→17:44)
[2019-03-18] MEDS: PIPERACILLIN/TAZOB 3.375 GM 3.375 GM in DEXTROSE 5%-WATER - 50 ML IVPB SCH ×3 (01:29→17:55)
[2019-03-18] MEDS: oxyCODONE HCL 5 MG TABLET PO PRN ×2 (03:42→08:42)
[2019-03-18] MEDS: DOCUSATE SODIUM 100 MG CAPSULE (FP) PO SCH ×3 (05:46→21:51)
[2019-03-18] MEDS: SODIUM CHLORIDE 0.45%/POT 20 MEQ/1,000 ML INFUS.BAG IV SCH ×3 (05:46→17:55)
[2019-03-18] MEDS: INSULIN SLIDING SCALE (NOVOLOG) 1 VIAL SQ SCH ×4 (06:23→21:58)
[2019-03-18] MEDS ORDERED: INSULIN (NOVOLOG) ASPART 100 UNITS/ML 10ML VIAL ONE ×2 (07:08→11:20)
--- NOTE | 2019-03-18 08:16 | PN ---
Progress Note (short form) - Note Progress Note: POD#3 Post Iand D Comfortable C/O incisional pain but improved from yesterday No leg pain Walked in the room Sitting in chair Problem Wound dry Drains in situ Drainage as per chart Drain fluid not --draining O/E Vitals at baseline See chart Abd Soft Passed stool Distension abdomen due to gas No tenderness guarding Neuro at baseline PLAN Continue medical and nursing mx will deide later re drain removal PT mobilize FWBAT Pain mx Leave wound sealed dressing D/C planning ?tomorrow
[2019-03-18] MEDS ORDERED: PT OWN MED DRAWER 7, Y5N ONE (10:09)
[2019-03-18] MEDS: FOLIC ACID 1 MG TABLET (FP) PO SCH (10:12)
[2019-03-18] MEDS: EPLERENONE 25 MG TABLET PO SCH (10:12)
[2019-03-18] MEDS: HYDROCHLOROTHIAZIDE 25 MG TABLET (FP) PO SCH (10:12)
[2019-03-18] MEDS: VERAPAMIL HCL 240 MG E.R. TABLET PO SCH (10:12)
[2019-03-18] MEDS: POLYETHYLENE GLYCOL 3350 119 GM BTL PO SCH ×2 (10:13→21:52)
[2019-03-18] MEDS: METOPROLOL TARTRATE 25 MG TABLET (FP) PO SCH ×2 (10:13→21:51)
[2019-03-18] MEDS: oxyCODONE HCL 10 MG SUSTAINED ACTING TABLET PO SCH ×2 (10:14→21:51)
[2019-03-18] MEDS: LISINOPRIL 20 MG TABLET (FP) PO SCH (10:15)
[2019-03-18] MEDS: ALLOPURINOL 100 MG TABLET (FP) PO SCH (10:16)
[2019-03-18] MEDS: BRIMONIDINE TARTRATE 0.1% OPHTHALMIC 5 ML BOTTLE OU SCH (10:17)
--- NOTE | 2019-03-18 12:17 | PN ---
Progress Note, Physician History of Present Illness: patient stable doing well back pain numbness has improved - Current Medication List Current Medications: Active Medications Acetaminophen (Tylenol -) 650 mg PO Q6H [facility] Last Admin: 03/18/19 11:53 Dose: 650 mg Allopurinol (Zyloprim -) 100 mg PO DAILY [facility] Last Admin: 03/18/19 10:16 Dose: 100 mg Atorvastatin Calcium (Lipitor -) 10 mg PO HS [facility] Last Admin: 03/17/19 21:28 Dose: 10 mg Brimonidine Tartrate (Alphagan P 0.1% -) 1 drop OU DAILY [facility] Last Admin: 03/18/19 10:17 Dose: 1 drop Docusate Sodium (Colace -) 100 mg PO TID [facility] Last Admin: 03/18/19 05:46 Dose: 100 mg Eplerenone (Eplerenone) 50 mg PO DAILY [facility] Last Admin: 03/18/19 10:12 Dose: 50 mg Folic Acid (Folic Acid -) 1 mg PO DAILY [facility] Last Admin: 03/18/19 10:12 Dose: 1 mg Hydrochlorothiazide (Hctz -) 25 mg PO DAILY [facility] Last Admin: 03/18/19 10:12 Dose: 25 mg Piperacillin Sod/Tazobactam (Sod 3.375 gm/ Dextrose) 50 mls @ 100 mls/hr IVPB Q8H-IV [facility]; Protocol Last Admin: 03/18/19 10:16 Dose: 100 mls/hr Potassium Chloride/Sodium Chloride (1/2ns+20meq Kcl) 20 meq in 1,000 mls @ 125 mls/hr IV ASDIR [facility] Last Admin: 03/18/19 05:46 Dose: 125 mls/hr Insulin Aspart (Novolog Vial Sliding Scale -) 1 vial SQ ACHS [facility]; Protocol Last Admin: 03/18/19 11:30 Dose: Not Given Latanoprost (Xalatan 0.005% Eye Drops -) 1 drop OU HS [facility] Last Admin: 03/17/19 21:30 Dose: 1 drop Lisinopril (Prinivil) 20 mg PO DAILY [facility] Last Admin: 03/18/19 10:15 Dose: 20 mg Metoprolol Tartrate (Lopressor -) 25 mg PO BID [facility] Last Admin: 03/18/19 10:13 Dose: 25 mg Oxybutynin Chloride (Ditropan -) 5 mg PO HS [facility] Last Admin: 03/17/19 21:28 Dose: 5 mg Oxycodone HCl (Roxicodone -) 10 mg PO Q3H PRN PRN Reason: PAIN LEVEL 6-10 Last Admin: 03/18/19 08:42 Dose: 10 mg Oxycodone HCl (Roxicodone -) 5 mg PO Q3H PRN PRN Reason: PAIN LEVEL 1-5 Last Admin: 03/16/19 06:10 Dose: 5 mg Oxycodone HCl (Oxycontin -) 10 mg PO BID [facility] Last Admin: 03/18/19 10:14 Dose: 10 mg Polyethylene Glycol (Miralax (For Daily Use) -) 17 gm PO BID [facility] Last Admin: 03/18/19 10:13 Dose: 17 grams Verapamil HCl (Calan Sr -) 240 mg PO DAILY [facility] Last Admin: 03/18/19 10:12 Dose: 240 mg - Objective Vital Signs: Vital Signs Temperature 98.2 F 03/18/19 08:30 Pulse Rate 68 03/18/19 08:30 Respiratory Rate 20 03/18/19 08:30 Blood Pressure 143/102 H 03/18/19 08:30 O2 Sat by Pulse Oximetry (%) 94 L 03/15/19 17:00 Constitutional: Yes: No Distress, Calm Cardiovascular: Yes: Regular Rate and Rhythm Respiratory: Yes: Regular, CTA Bilaterally Gastrointestinal: Yes: Normal Bowel Sounds, Soft Musculoskeletal: Yes: WNL Extremities: Yes: WNL Wound/Incision: Yes: Dressing Dry and Intact, Other (drain in place) Neurological: Yes: Alert, Oriented Psychiatric: Yes: Alert, Oriented Labs: CBC, BMP 03/17/19 06:30 03/17/19 06:30 Assessment/Plan -Problem List - Problems (1) Degenerative lumbar spinal stenosis Code(s): M48.061 - SPINAL STENOSIS, LUMBAR REGION WITHOUT NEUROGENIC MARY (2) Diabetes Code(s): E11.9 - TYPE 2 DIABETES MELLITUS WITHOUT COMPLICATIONS (3) Gout Code(s): M10.9 - GOUT, UNSPECIFIED (4) HTN (hypertension) Code(s): I10 - ESSENTIAL (PRIMARY) HYPERTENSION (5) Kyphosis Code(s): M40.209 - UNSPECIFIED KYPHOSIS, SITE UNSPECIFIED Assessment/Plan Leukocytosis Spinal stenosis s/p L2-S1 b/l laminectomy/osteotomy s/p I+D/washout POD#2 DM Gout HTN plan continue abx on discharge we can change to oral abx augmentin 875 mg po bid for 5 more days
--- NOTE | 2019-03-18 15:24 | PN ---
Progress Note, Physician Chief Complaint: back pain - Current Medication List Current Medications: Active Medications Acetaminophen (Tylenol -) 650 mg PO Q6H [facility] Last Admin: 03/18/19 11:53 Dose: 650 mg Allopurinol (Zyloprim -) 100 mg PO DAILY [facility] Last Admin: 03/18/19 10:16 Dose: 100 mg Atorvastatin Calcium (Lipitor -) 10 mg PO HS [facility] Last Admin: 03/17/19 21:28 Dose: 10 mg Brimonidine Tartrate (Alphagan P 0.1% -) 1 drop OU DAILY [facility] Last Admin: 03/18/19 10:17 Dose: 1 drop Docusate Sodium (Colace -) 100 mg PO TID [facility] Last Admin: 03/18/19 13:33 Dose: 100 mg Eplerenone (Eplerenone) 50 mg PO DAILY [facility] Last Admin: 03/18/19 10:12 Dose: 50 mg Folic Acid (Folic Acid -) 1 mg PO DAILY [facility] Last Admin: 03/18/19 10:12 Dose: 1 mg Hydrochlorothiazide (Hctz -) 25 mg PO DAILY [facility] Last Admin: 03/18/19 10:12 Dose: 25 mg Piperacillin Sod/Tazobactam (Sod 3.375 gm/ Dextrose) 50 mls @ 100 mls/hr IVPB Q8H-IV [facility]; Protocol Last Admin: 03/18/19 10:16 Dose: 100 mls/hr Potassium Chloride/Sodium Chloride (1/2ns+20meq Kcl) 20 meq in 1,000 mls @ 125 mls/hr IV ASDIR [facility] Last Admin: 03/18/19 14:24 Dose: 125 mls/hr Insulin Aspart (Novolog Vial Sliding Scale -) 1 vial SQ ACHS [facility]; Protocol Last Admin: 03/18/19 11:30 Dose: Not Given Latanoprost (Xalatan 0.005% Eye Drops -) 1 drop OU HS [facility] Last Admin: 03/17/19 21:30 Dose: 1 drop Lisinopril (Prinivil) 20 mg PO DAILY [facility] Last Admin: 03/18/19 10:15 Dose: 20 mg Metoprolol Tartrate (Lopressor -) 25 mg PO BID [facility] Last Admin: 03/18/19 10:13 Dose: 25 mg Oxybutynin Chloride (Ditropan -) 5 mg PO HS [facility] Last Admin: 03/17/19 21:28 Dose: 5 mg Oxycodone HCl (Roxicodone -) 10 mg PO Q3H PRN PRN Reason: PAIN LEVEL 6-10 Last Admin: 03/18/19 08:42 Dose: 10 mg Oxycodone HCl (Roxicodone -) 5 mg PO Q3H PRN PRN Reason: PAIN LEVEL 1-5 Last Admin: 03/16/19 06:10 Dose: 5 mg Oxycodone HCl (Oxycontin -) 10 mg PO BID [facility] Last Admin: 03/18/19 10:14 Dose: 10 mg Polyethylene Glycol (Miralax (For Daily Use) -) 17 gm PO BID [facility] Last Admin: 03/18/19 10:13 Dose: 17 grams Verapamil HCl (Calan Sr -) 240 mg PO DAILY [facility] Last Admin: 03/18/19 10:12 Dose: 240 mg - Objective Vital Signs: Vital Signs Temperature 98.0 F 03/18/19 14:00 Pulse Rate 57 L 03/18/19 14:00 Respiratory Rate 20 03/18/19 14:00 Blood Pressure 141/81 03/18/19 14:00 O2 Sat by Pulse Oximetry (%) 94 L 03/15/19 17:00 Constitutional: Yes: Obese Eyes: Yes: WNL HENT: Yes: WNL Neck: Yes: WNL Cardiovascular: Yes: WNL Respiratory: Yes: WNL Gastrointestinal: Yes: Distention, Hypoactive Bowel Sounds Genitourinary: Yes: WNL Musculoskeletal: Yes: Back Pain Extremities: Yes: WNL Edema: Yes Peripheral Pulses WNL: Yes Integumentary: Yes: WNL Wound/Incision: Yes: Clean/Dry, Well Approximated, Dressing Dry and Intact Neurological: Yes: WNL ...Motor Strength: WNL Psychiatric: Yes: WNL Labs: CBC, BMP 03/17/19 06:30 03/17/19 06:30 Assessment/Plan -68 y/o man with DM, HTN, gout, and spinal stenosis with segmental instability admitted to the ICU for medical management s/p L2-S1 bilateral laminectomy. cont pain management. incentive spirometry. for I&D of surgical wound on 03/15. CT positive for pneumonia, possibly HCAP. IV antibiotics started. ID eval appreciated. -GI, DVT prophylaxis. -constipation, SBO? CT showing distal SBO, but pt claims he is passing gas -morbid obesity: weight loss and healthier lifestyle advised. -chronic gout: cont allopurinol. -HLD: on lipitor -acute on chronic anemia: on folic acid -type 2 DM: on RISS. hold amaryl as it can exacerbate hypoglycemia as a sulfonylurea class medication. -HTN/CHF: on lisinopril, lasix, HCTZ, metoprolol. monitor electrolytes carefully. -low anion gap: from reduced protein intake. -PT/OT/OB as tolerated -chronic glaucoma: on latanoprost -assessment and plan discussed with pt and medical staff. labwork and meds reviewed. phone calls answered throughout the day. 40 min -
[2019-03-18] MEDS: OXYBUTYNIN CHLORIDE 5 MG TABLET PO SCH (21:51)
[2019-03-18] MEDS: ATORVASTATIN CA 10 MG TABLET (FP) PO SCH (21:51)
[2019-03-18] MEDS: LATANOPROST 0.005% OPHTH SOLN 2.5ML BOTTLE OU SCH (21:59)
[2019-03-19] MEDS: ACETAMINOPHEN 325 MG TABLET (FP) PO SCH ×4 (00:05→17:39)
[2019-03-19] MEDS ORDERED: PIPERACILLIN/TAZOBACTAM 3.375 GM VIAL IVPB ONE ×3 (00:44→17:25)
[2019-03-19] MEDS ORDERED: DEXTROSE 5%-WATER - 50 ML IVPB ONE ×3 (00:45→17:26)
[2019-03-19] MEDS: PIPERACILLIN/TAZOB 3.375 GM 3.375 GM in DEXTROSE 5%-WATER - 50 ML IVPB SCH ×3 (01:05→17:28)
[2019-03-19] MEDS: DOCUSATE SODIUM 100 MG CAPSULE (FP) PO SCH ×3 (06:03→22:47)
[2019-03-19] MEDS: INSULIN SLIDING SCALE (NOVOLOG) 1 VIAL SQ SCH ×4 (06:04→22:47)
[2019-03-19 06:41] LABS: BASO % 0.4 % (0-2.0); HEMATOCRIT 32.3 % (35.4-49); HEMOGLOBIN 10.3 GM/dL (11.7-16.9); LYMPH % 20.3 % (8-40); MCH 23.2 pg (25.7-33.7); MEAN CELL VOLUME 72.6 fl (80-96); MEAN PLT VOLUME 8.9 fl (7.5-11.1); MONO % 11.5 % (3.8-10.2); NEUT % 63.8 % (42.8-82.8); PLATELET COUNT 255 K/MM3 (134-434); RBC 4.45 M/mm3 (4.00-5.60); RDW 13.8 % (11.9-15.9); WHITE BLOOD COUNT 10.8 K/mm3 (4.0-10.0)
[2019-03-19 06:52] LABS: BLOOD UREA NITROGEN 7.5 mg/dL (7-18); CALCIUM 8.3 mg/dL (8.5-10.1); POTASSIUM 3.9 mmol/L (3.5-5.1)
[2019-03-19] MEDS: SODIUM CHLORIDE 0.45%/POT 20 MEQ/1,000 ML INFUS.BAG IV SCH ×2 (07:46→17:28)
--- NOTE | 2019-03-19 08:09 | SPA.POSTOP ---
- POST-OP NOTE s/p L2-S1 PLIF No acute events since surgical procedure per RN notes. Patient continues to complain of back pain, unchanged from yesterday. Pain management via prn meds. Denies any leg numbness or weakness. Denies n/v/f/c, CP or SOB. Last Vital Signs Temp Pulse Resp BP Pulse Ox 97.8 F 72 20 124/71 94 L 03/19/19 06:00 03/19/19 06:00 03/19/19 06:00 03/19/19 06:00 03/15/19 17:00 Physical Exam General: No acute distress. Pulm:breathing comfortably Cor: Regular rhythm Back: incision dressing is clean, drains in place with serosanguinous drainage. Output: 90ml LE: Soft, non-tender bilat. Problem List - Problems (1) Degenerative lumbar spinal stenosis Assessment/Plan: Plan -pt appears stable, drains were removed at bedside without incident. -pt is cleared for discharge to rehab -pain control -dvt ppx -oob/ambulate with PT Case discussed with Dr. Hewitt who agrees. Code(s): M48.061 - SPINAL STENOSIS, LUMBAR REGION WITHOUT NEUROGENIC MARY
[2019-03-19] MEDS ORDERED: PT OWN MED DRAWER 7, Y5N ONE (09:16)
[2019-03-19] MEDS: VERAPAMIL HCL 240 MG E.R. TABLET PO SCH (09:20)
[2019-03-19] MEDS: EPLERENONE 25 MG TABLET PO SCH (09:21)
[2019-03-19] MEDS: POLYETHYLENE GLYCOL 3350 119 GM BTL PO SCH ×2 (09:21→22:47)
[2019-03-19] MEDS: METOPROLOL TARTRATE 25 MG TABLET (FP) PO SCH ×2 (09:21→22:47)
[2019-03-19] MEDS: FOLIC ACID 1 MG TABLET (FP) PO SCH (09:21)
[2019-03-19] MEDS: oxyCODONE HCL 10 MG SUSTAINED ACTING TABLET PO SCH ×2 (09:22→22:47)
[2019-03-19] MEDS: LISINOPRIL 20 MG TABLET (FP) PO SCH (09:23)
[2019-03-19] MEDS: ALLOPURINOL 100 MG TABLET (FP) PO SCH (09:23)
[2019-03-19] MEDS: HYDROCHLOROTHIAZIDE 25 MG TABLET (FP) PO SCH (09:23)
[2019-03-19] MEDS: BRIMONIDINE TARTRATE 0.1% OPHTHALMIC 5 ML BOTTLE OU SCH (09:29)
--- NOTE | 2019-03-19 11:06 | PN ---
Progress Note, Physician History of Present Illness: patient stable still with pain otherwise doing well on liquid diet - Current Medication List Current Medications: Active Medications Acetaminophen (Tylenol -) 650 mg PO Q6H [facility] Last Admin: 03/19/19 06:03 Dose: 650 mg Allopurinol (Zyloprim -) 100 mg PO DAILY [facility] Last Admin: 03/19/19 09:23 Dose: 100 mg Atorvastatin Calcium (Lipitor -) 10 mg PO HS [facility] Last Admin: 03/18/19 21:51 Dose: 10 mg Brimonidine Tartrate (Alphagan P 0.1% -) 1 drop OU DAILY [facility] Last Admin: 03/19/19 09:29 Dose: 1 drop Docusate Sodium (Colace -) 100 mg PO TID [facility] Last Admin: 03/19/19 06:03 Dose: 100 mg Eplerenone (Eplerenone) 50 mg PO DAILY [facility] Last Admin: 03/19/19 09:21 Dose: 50 mg Folic Acid (Folic Acid -) 1 mg PO DAILY [facility] Last Admin: 03/19/19 09:21 Dose: 1 mg Hydrochlorothiazide (Hctz -) 25 mg PO DAILY [facility] Last Admin: 03/19/19 09:23 Dose: 25 mg Piperacillin Sod/Tazobactam (Sod 3.375 gm/ Dextrose) 50 mls @ 100 mls/hr IVPB Q8H-IV [facility]; Protocol Last Admin: 03/19/19 09:24 Dose: 100 mls/hr Potassium Chloride/Sodium Chloride (1/2ns+20meq Kcl) 20 meq in 1,000 mls @ 125 mls/hr IV ASDIR [facility] Last Admin: 03/19/19 07:46 Dose: 125 mls/hr Insulin Aspart (Novolog Vial Sliding Scale -) 1 vial SQ ACHS [facility]; Protocol Last Admin: 03/19/19 06:04 Dose: Not Given Latanoprost (Xalatan 0.005% Eye Drops -) 1 drop OU HS [facility] Last Admin: 03/18/19 21:59 Dose: 1 drop Lisinopril (Prinivil) 20 mg PO DAILY [facility] Last Admin: 03/19/19 09:23 Dose: 20 mg Metoprolol Tartrate (Lopressor -) 25 mg PO BID [facility] Last Admin: 03/19/19 09:21 Dose: 25 mg Oxybutynin Chloride (Ditropan -) 5 mg PO HS [facility] Last Admin: 03/18/19 21:51 Dose: 5 mg Oxycodone HCl (Oxycontin -) 10 mg PO BID [facility] Last Admin: 03/19/19 09:22 Dose: 10 mg Polyethylene Glycol (Miralax (For Daily Use) -) 17 gm PO BID [facility] Last Admin: 03/19/19 09:21 Dose: 17 grams Verapamil HCl (Calan Sr -) 240 mg PO DAILY [facility] Last Admin: 03/19/19 09:20 Dose: 240 mg - Objective Vital Signs: Vital Signs Temperature 97.8 F 03/19/19 06:00 Pulse Rate 72 03/19/19 06:00 Respiratory Rate 20 03/19/19 06:00 Blood Pressure 124/71 03/19/19 06:00 O2 Sat by Pulse Oximetry (%) 94 L 03/15/19 17:00 Constitutional: Yes: No Distress, Calm Cardiovascular: Yes: Regular Rate and Rhythm Respiratory: Yes: Regular, CTA Bilaterally Gastrointestinal: Yes: Normal Bowel Sounds, Soft Musculoskeletal: Yes: Back Pain Extremities: Yes: WNL Wound/Incision: Yes: Dressing Dry and Intact Neurological: Yes: Alert, Oriented Psychiatric: Yes: Alert, Oriented Labs: CBC, BMP 03/19/19 05:49 03/19/19 06:00 Assessment/Plan -Problem List - Problems (1) Degenerative lumbar spinal stenosis Code(s): M48.061 - SPINAL STENOSIS, LUMBAR REGION WITHOUT NEUROGENIC MARY (2) Diabetes Code(s): E11.9 - TYPE 2 DIABETES MELLITUS WITHOUT COMPLICATIONS (3) Gout Code(s): M10.9 - GOUT, UNSPECIFIED (4) HTN (hypertension) Code(s): I10 - ESSENTIAL (PRIMARY) HYPERTENSION (5) Kyphosis Code(s): M40.209 - UNSPECIFIED KYPHOSIS, SITE UNSPECIFIED Assessment/Plan Leukocytosis Spinal stenosis s/p L2-S1 b/l laminectomy/osteotomy s/p I+D/washout POD#2 DM Gout HTN plan continue abx on discharge we can change to oral abx augmentin 875 mg po bid
--- NOTE | 2019-03-19 16:42 | PN ---
Progress Note, Physician Chief Complaint: back pain - Current Medication List Current Medications: Active Medications Acetaminophen (Tylenol -) 650 mg PO Q6H [facility] Last Admin: 03/19/19 11:42 Dose: 650 mg Allopurinol (Zyloprim -) 100 mg PO DAILY [facility] Last Admin: 03/19/19 09:23 Dose: 100 mg Atorvastatin Calcium (Lipitor -) 10 mg PO HS [facility] Last Admin: 03/18/19 21:51 Dose: 10 mg Brimonidine Tartrate (Alphagan P 0.1% -) 1 drop OU DAILY [facility] Last Admin: 03/19/19 09:29 Dose: 1 drop Docusate Sodium (Colace -) 100 mg PO TID [facility] Last Admin: 03/19/19 13:37 Dose: 100 mg Eplerenone (Eplerenone) 50 mg PO DAILY [facility] Last Admin: 03/19/19 09:21 Dose: 50 mg Folic Acid (Folic Acid -) 1 mg PO DAILY [facility] Last Admin: 03/19/19 09:21 Dose: 1 mg Hydrochlorothiazide (Hctz -) 25 mg PO DAILY [facility] Last Admin: 03/19/19 09:23 Dose: 25 mg Piperacillin Sod/Tazobactam (Sod 3.375 gm/ Dextrose) 50 mls @ 100 mls/hr IVPB Q8H-IV [facility]; Protocol Last Admin: 03/19/19 09:24 Dose: 100 mls/hr Potassium Chloride/Sodium Chloride (1/2ns+20meq Kcl) 20 meq in 1,000 mls @ 125 mls/hr IV ASDIR [facility] Last Admin: 03/19/19 07:46 Dose: 125 mls/hr Insulin Aspart (Novolog Vial Sliding Scale -) 1 vial SQ ACHS [facility]; Protocol Last Admin: 03/19/19 16:26 Dose: Not Given Latanoprost (Xalatan 0.005% Eye Drops -) 1 drop OU HS [facility] Last Admin: 03/18/19 21:59 Dose: 1 drop Lisinopril (Prinivil) 20 mg PO DAILY [facility] Last Admin: 03/19/19 09:23 Dose: 20 mg Metoprolol Tartrate (Lopressor -) 25 mg PO BID [facility] Last Admin: 03/19/19 09:21 Dose: 25 mg Oxybutynin Chloride (Ditropan -) 5 mg PO HS [facility] Last Admin: 03/18/19 21:51 Dose: 5 mg Oxycodone HCl (Oxycontin -) 10 mg PO BID [facility] Last Admin: 03/19/19 09:22 Dose: 10 mg Polyethylene Glycol (Miralax (For Daily Use) -) 17 gm PO BID [facility] Last Admin: 03/19/19 09:21 Dose: 17 grams Verapamil HCl (Calan Sr -) 240 mg PO DAILY [facility] Last Admin: 03/19/19 09:20 Dose: 240 mg - Objective Vital Signs: Vital Signs Temperature 98.1 F 03/19/19 15:00 Pulse Rate 77 03/19/19 15:00 Respiratory Rate 20 03/19/19 15:00 Blood Pressure 151/84 03/19/19 15:00 O2 Sat by Pulse Oximetry (%) 94 L 03/15/19 17:00 Constitutional: Yes: Obese Eyes: Yes: WNL HENT: Yes: WNL Neck: Yes: WNL Cardiovascular: Yes: WNL Respiratory: Yes: WNL Gastrointestinal: Yes: WNL Genitourinary: Yes: WNL Musculoskeletal: Yes: WNL Extremities: Yes: WNL Edema: Yes Peripheral Pulses WNL: Yes Integumentary: Yes: WNL Wound/Incision: Yes: Clean/Dry, Well Approximated, Dressing Dry and Intact Neurological: Yes: WNL ...Motor Strength: WNL Psychiatric: Yes: WNL Labs: CBC, BMP 03/19/19 05:49 03/19/19 06:00 Assessment/Plan -68 y/o man with DM, HTN, gout, and spinal stenosis with segmental instability admitted to the ICU for medical management s/p L2-S1 bilateral laminectomy. cont pain management. incentive spirometry. for I&D of surgical wound on 03/15. CT positive for pneumonia, possibly HCAP. IV antibiotics started. ID eval appreciated. will be on augmentin when discharged. -GI, DVT prophylaxis. -constipation, SBO? CT showing distal SBO, but pt claims he is passing gas -morbid obesity: weight loss and healthier lifestyle advised. -chronic gout: cont allopurinol. -HLD: on lipitor -acute on chronic anemia: on folic acid -type 2 DM: on RISS. hold amaryl as it can exacerbate hypoglycemia as a sulfonylurea class medication. -HTN/CHF: on lisinopril, lasix, HCTZ, metoprolol. monitor electrolytes carefully. -low anion gap: from reduced protein intake. -PT/OT/OB as tolerated -chronic glaucoma: on latanoprost -assessment and plan discussed with pt and medical staff. labwork and meds reviewed. phone calls answered throughout the day. 40 min hopefully will DC to rehab by the end of the week. -
--- NOTE | 2019-03-19 20:04 | PN ---
Progress Note (short form) - Note Progress Note: POD#4 Post I&D lumbar spine Comfortable No leg pain Walked in the room Sat in chair (+) Nausea Problem Wound dry Drains removed this morning O/E Labs and vitals as charted Abd Distended, soft abdomen; dull to percussion No tenderness guarding Neuro at baseline PLAN Appreciate abdominal evaluation: Dr. RAUL Abdul Continue medical and nursing mx will decide later re drain removal PT mobilize FWBAT Pain management Leave wound dressing sealed
[2019-03-19] MEDS ORDERED: oxyCODONE HCL 5 MG TABLET PO PRN (20:29)
[2019-03-19] MEDS: ATORVASTATIN CA 10 MG TABLET (FP) PO SCH (22:47)
[2019-03-19] MEDS: OXYBUTYNIN CHLORIDE 5 MG TABLET PO SCH (22:47)
[2019-03-19] MEDS: LATANOPROST 0.005% OPHTH SOLN 2.5ML BOTTLE OU SCH (22:48)
[2019-03-20] MEDS: oxyCODONE HCL 5 MG TABLET PO PRN ×2 (00:45→06:25)
[2019-03-20] MEDS: ACETAMINOPHEN 325 MG TABLET (FP) PO SCH ×4 (00:50→18:36)
[2019-03-20] MEDS ORDERED: PIPERACILLIN/TAZOBACTAM 3.375 GM VIAL IVPB ONE ×2 (01:41→09:22)
[2019-03-20] MEDS ORDERED: DEXTROSE 5%-WATER - 50 ML IVPB ONE ×2 (01:42→09:23)
[2019-03-20] MEDS: PIPERACILLIN/TAZOB 3.375 GM 3.375 GM in DEXTROSE 5%-WATER - 50 ML IVPB SCH ×2 (02:09→10:28)
[2019-03-20] MEDS: SODIUM CHLORIDE 0.45%/POT 20 MEQ/1,000 ML INFUS.BAG IV SCH ×3 (02:12→21:44)
[2019-03-20] MEDS: DOCUSATE SODIUM 100 MG CAPSULE (FP) PO SCH ×3 (06:25→21:21)
[2019-03-20] MEDS: INSULIN SLIDING SCALE (NOVOLOG) 1 VIAL SQ SCH ×4 (06:32→21:28)
[2019-03-20] MEDS ORDERED: INSULIN (NOVOLOG) ASPART 100 UNITS/ML 10ML VIAL ONE (06:43)
[2019-03-20] MEDS: oxyCODONE HCL 10 MG SUSTAINED ACTING TABLET PO SCH ×2 (10:29→21:22)
[2019-03-20] MEDS: METOPROLOL TARTRATE 25 MG TABLET (FP) PO SCH ×2 (10:31→21:22)
[2019-03-20] MEDS: HYDROCHLOROTHIAZIDE 25 MG TABLET (FP) PO SCH (10:32)
[2019-03-20] MEDS: LISINOPRIL 20 MG TABLET (FP) PO SCH (10:33)
[2019-03-20] MEDS: VERAPAMIL HCL 240 MG E.R. TABLET PO SCH (10:33)
[2019-03-20] MEDS: ALLOPURINOL 100 MG TABLET (FP) PO SCH (10:33)
[2019-03-20] MEDS: FOLIC ACID 1 MG TABLET (FP) PO SCH (10:35)
[2019-03-20] MEDS: EPLERENONE 25 MG TABLET PO SCH (10:35)
[2019-03-20] MEDS: BRIMONIDINE TARTRATE 0.1% OPHTHALMIC 5 ML BOTTLE OU SCH (10:36)
--- NOTE | 2019-03-20 10:59 | PN ---
Progress Note, Physician History of Present Illness: patient stable no new issues c/o of some numbness int he rt leg - Current Medication List Current Medications: Active Medications Acetaminophen (Tylenol -) 650 mg PO Q6H [facility] Last Admin: 03/20/19 06:26 Dose: 650 mg Allopurinol (Zyloprim -) 100 mg PO DAILY [facility] Last Admin: 03/20/19 10:33 Dose: 100 mg Atorvastatin Calcium (Lipitor -) 10 mg PO HS [facility] Last Admin: 03/19/19 22:47 Dose: 10 mg Brimonidine Tartrate (Alphagan P 0.1% -) 1 drop OU DAILY [facility] Last Admin: 03/20/19 10:36 Dose: 1 drop Docusate Sodium (Colace -) 100 mg PO TID [facility] Last Admin: 03/20/19 06:25 Dose: 100 mg Eplerenone (Eplerenone) 50 mg PO DAILY [facility] Last Admin: 03/20/19 10:35 Dose: 50 mg Folic Acid (Folic Acid -) 1 mg PO DAILY [facility] Last Admin: 03/20/19 10:35 Dose: 1 mg Hydrochlorothiazide (Hctz -) 25 mg PO DAILY [facility] Last Admin: 03/20/19 10:32 Dose: 25 mg Piperacillin Sod/Tazobactam (Sod 3.375 gm/ Dextrose) 50 mls @ 100 mls/hr IVPB Q8H-IV [facility]; Protocol Last Admin: 03/20/19 10:28 Dose: 100 mls/hr Potassium Chloride/Sodium Chloride (1/2ns+20meq Kcl) 20 meq in 1,000 mls @ 125 mls/hr IV ASDIR [facility] Last Admin: 03/20/19 02:12 Dose: 125 mls/hr Insulin Aspart (Novolog Vial Sliding Scale -) 1 vial SQ ACHS [facility]; Protocol Last Admin: 03/20/19 06:32 Dose: Not Given Latanoprost (Xalatan 0.005% Eye Drops -) 1 drop OU HS [facility] Last Admin: 03/19/19 22:48 Dose: 1 drop Lisinopril (Prinivil) 20 mg PO DAILY [facility] Last Admin: 03/20/19 10:33 Dose: 20 mg Metoprolol Tartrate (Lopressor -) 25 mg PO BID [facility] Last Admin: 03/20/19 10:31 Dose: 25 mg Oxybutynin Chloride (Ditropan -) 5 mg PO HS [facility] Last Admin: 03/19/19 22:47 Dose: 5 mg Oxycodone HCl (Oxycontin -) 10 mg PO BID [facility] Last Admin: 03/20/19 10:29 Dose: 10 mg Oxycodone HCl (Roxicodone -) 5 mg PO Q3H PRN PRN Reason: PAIN LEVEL 1-5 Oxycodone HCl (Roxicodone -) 10 mg PO Q3H PRN PRN Reason: PAIN LEVEL 6-10 Last Admin: 03/20/19 06:25 Dose: 10 mg Polyethylene Glycol (Miralax (For Daily Use) -) 17 gm PO BID [facility] Last Admin: 03/19/19 22:47 Dose: 17 grams Verapamil HCl (Calan Sr -) 240 mg PO DAILY [facility] Last Admin: 03/20/19 10:33 Dose: 240 mg - Objective Vital Signs: Vital Signs Temperature 98.3 F 03/20/19 06:00 Pulse Rate 77 03/20/19 06:00 Respiratory Rate 20 03/20/19 06:00 Blood Pressure 122/80 03/20/19 06:00 O2 Sat by Pulse Oximetry (%) 94 L 03/15/19 17:00 Constitutional: Yes: No Distress, Calm Cardiovascular: Yes: Regular Rate and Rhythm Respiratory: Yes: Regular, CTA Bilaterally Gastrointestinal: Yes: Normal Bowel Sounds, Soft Musculoskeletal: Yes: WNL Extremities: Yes: WNL Wound/Incision: Yes: Dressing Dry and Intact Psychiatric: Yes: Alert, Oriented Labs: CBC, BMP 03/19/19 05:49 03/19/19 06:00 Assessment/Plan -Problem List - Problems (1) Degenerative lumbar spinal stenosis Code(s): M48.061 - SPINAL STENOSIS, LUMBAR REGION WITHOUT NEUROGENIC MARY (2) Diabetes Code(s): E11.9 - TYPE 2 DIABETES MELLITUS WITHOUT COMPLICATIONS (3) Gout Code(s): M10.9 - GOUT, UNSPECIFIED (4) HTN (hypertension) Code(s): I10 - ESSENTIAL (PRIMARY) HYPERTENSION (5) Kyphosis Code(s): M40.209 - UNSPECIFIED KYPHOSIS, SITE UNSPECIFIED Assessment/Plan Leukocytosis Spinal stenosis s/p L2-S1 b/l laminectomy/osteotomy s/p I+D/washout POD#2 DM Gout HTN plan will change to oral augmentin wound care rest as per surgery
--- NOTE | 2019-03-20 11:47 | PN ---
Progress Note (short form) - Note Progress Note: Ct reviewed. no official read. appears to be dilated small bowel up to the colon which is collapsed. doubt mechanical sbo at terminal ileum. will start reglan. repeat xray in am. suggest gi eval for ileus. surgery pt seen and examined. full consult dictated 68m pod#10 and #8 s/p spine surgery followed by hematoma washout. Pt on oxycodone, passing gas, but has not had a bowel movement and vomited food yesterday. 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 Pt cannot recall any abdominal surgery. I was asked to evaluate for mechanical sbo or colonic pseudo-obstruction requiring resection. wbc 10.8. abd- obese, nt, moderate distenison in upper abd. plan- clinically mild ileus from narcotics, limited mobility, and surgery x 2. In order to r/o sbo or colonic pseudo-obstruction will need a f/u CT. If cT only shows ileus would start reglan. Doubt need for surgical intervention.
[2019-03-20 12:11] VITALS: BMI 39.1
--- NOTE | 2019-03-20 12:53 | CONS ---
DATE OF CONSULTATION: 03/20/2019 REASON FOR CONSULTATION: Rule out mechanical small-bowel obstruction, rule out pseudoobstruction of the colon requiring surgical resection. REQUESTING PHYSICIAN: This is an inpatient consultation at the request of the medical service. BRIEF HISTORY: This is a 68-year-old male who on March 11 underwent a spinal surgery with laminectomy for spinal stenosis. On March 13 he returned to the operating room for a washout of his wound to remove hematoma. Since that time he has been on narcotics and has had limited mobility. He had a CAT scan of his abdomen and pelvis on March 16 which showed dilated small bowel without a transition point. The typing section chief opined that this could be a mechanical small-bowel obstruction. The patient does not recall having any abdominal surgeries. He has been on a liquid diet. He has been passing gas, but he has been unable to have a bowel movement. He continues to take oxycodone and he had 10 mg this morning and he had 1 episode of vomiting yesterday which he states was food. He denies abdominal pain. PAST MEDICAL HISTORY: Significant for diabetes, hypertension, gout and spinal stenosis. PAST SURGICAL HISTORY: Includes a hip replacement as well as the spinal surgery. SOCIAL HISTORY: Significant for quitting tobacco. Negative for alcohol. He admits to marijuana usage. FAMILY HISTORY: Noncontributory. HOSPITAL MEDICATIONS: Have been reviewed and include Diprivan as well as oxycodone. ALLERGIES: He has no known drug allergies. REVIEW OF SYSTEMS: General: Denies fatigue or malaise. Cardiac: Denies chest pain or palpitations. Respiratory: He denies shortness of breath or wheeze. Gastrointestinal: As in HPI. Genitourinary: Denies dysuria. Musculoskeletal: Denies joint pain. Psychiatric: Denies anxiety, depression, hearing voices. PHYSICAL EXAMINATION: General: This is a morbidly obese 68-year-old male in no distress. Vital Signs: He is afebrile. HEENT: His head is normocephalic. His sclerae are anicteric. Neck: Supple. Chest: Clear. Abdomen: Softly distended, more in the upper abdomen. There are no obvious surgical scars. There are no obvious hernias. This exam is limited by obesity. Extremities: Have edema. LABORATORIES: Review of his laboratories: His white blood cell count is 10.8 which is slightly above normal. There is no shift. His chemistries are unremarkable with normal sodium, normal potassium, normal kidney function. IMAGING: As in HPI. ASSESSMENT: This is a 68-year-old male who has had 2 operations in the last 10 days who is on narcotic who has limited mobility and he is morbidly obese. He is passing gas but unable to have a bowel movement and has vomited food at one time. His CAT scan from March 16 has been reviewed and to me clinically it is more likely consistent with a mild ileus than a mechanical obstruction. However, since I am being asked to rule out a mechanical obstruction as well as a colonic pseudoobstruction requiring surgery would need a CAT scan in order to rule these out done in followup. At this point I have ordered a CAT scan with oral contrast. This should evaluate the small bowel and to evaluate the diameter of the cecum. I assume this will most likely again be consistent with a mild ileus, possibly a gastric ileus, and not any mechanical problem requiring surgery. If that is the case the patient should be started on Reglan and should be treated for ileus. Obviously if there are surgical findings on CAT scan I will make further recommendations. Currently he is nontoxic, does not have peritoneal findings on exam and I have low suspicion for either a mechanical obstruction or a distention injury to his colon. DO RAVINDRA FERRERA/[id number]
[2019-03-20] MEDS: POLYETHYLENE GLYCOL 3350 119 GM BTL PO SCH ×2 (15:53→21:45)
[2019-03-20] MEDS: AMOX TR/POT CLAV 875MG/125MG TABLETS (FP) PO SCH ×2 (18:48→21:44)
--- NOTE | 2019-03-20 19:01 | PN ---
Progress Note, Physician Chief Complaint: back pain - Current Medication List Current Medications: Active Medications Acetaminophen (Tylenol -) 650 mg PO Q6H [facility] Last Admin: 03/20/19 18:36 Dose: Not Given Allopurinol (Zyloprim -) 100 mg PO DAILY [facility] Last Admin: 03/20/19 10:33 Dose: 100 mg Amoxicillin/Clavulanate Potassium (Augmentin - 875mg Tablet) 1 tab PO BID@0800, 1730 [facility] Last Admin: 03/20/19 18:48 Dose: Not Given Atorvastatin Calcium (Lipitor -) 10 mg PO HS [facility] Last Admin: 03/19/19 22:47 Dose: 10 mg Brimonidine Tartrate (Alphagan P 0.1% -) 1 drop OU DAILY [facility] Last Admin: 03/20/19 10:36 Dose: 1 drop Docusate Sodium (Colace -) 100 mg PO TID [facility] Last Admin: 03/20/19 15:53 Dose: 100 mg Eplerenone (Eplerenone) 50 mg PO DAILY [facility] Last Admin: 03/20/19 10:35 Dose: 50 mg Folic Acid (Folic Acid -) 1 mg PO DAILY [facility] Last Admin: 03/20/19 10:35 Dose: 1 mg Hydrochlorothiazide (Hctz -) 25 mg PO DAILY [facility] Last Admin: 03/20/19 10:32 Dose: 25 mg Potassium Chloride/Sodium Chloride (1/2ns+20meq Kcl) 20 meq in 1,000 mls @ 125 mls/hr IV ASDIR [facility] Last Admin: 03/20/19 02:12 Dose: 125 mls/hr Insulin Aspart (Novolog Vial Sliding Scale -) 1 vial SQ ACHS [facility]; Protocol Last Admin: 03/20/19 17:42 Dose: Not Given Latanoprost (Xalatan 0.005% Eye Drops -) 1 drop OU HS [facility] Last Admin: 03/19/19 22:48 Dose: 1 drop Lisinopril (Prinivil) 20 mg PO DAILY [facility] Last Admin: 03/20/19 10:33 Dose: 20 mg Metoprolol Tartrate (Lopressor -) 25 mg PO BID [facility] Last Admin: 03/20/19 10:31 Dose: 25 mg Oxybutynin Chloride (Ditropan -) 5 mg PO HS [facility] Last Admin: 03/19/19 22:47 Dose: 5 mg Oxycodone HCl (Oxycontin -) 10 mg PO BID [facility] Last Admin: 03/20/19 10:29 Dose: 10 mg Oxycodone HCl (Roxicodone -) 5 mg PO Q3H PRN PRN Reason: PAIN LEVEL 1-5 Oxycodone HCl (Roxicodone -) 10 mg PO Q3H PRN PRN Reason: PAIN LEVEL 6-10 Last Admin: 03/20/19 06:25 Dose: 10 mg Polyethylene Glycol (Miralax (For Daily Use) -) 17 gm PO BID [facility] Last Admin: 03/20/19 15:53 Dose: 17 grams Verapamil HCl (Calan Sr -) 240 mg PO DAILY [facility] Last Admin: 03/20/19 10:33 Dose: 240 mg - Objective Vital Signs: Vital Signs Temperature 8.1 F L 03/20/19 16:30 Pulse Rate 91 H 03/20/19 16:30 Respiratory Rate 18 03/20/19 16:30 Blood Pressure 144/92 03/20/19 16:30 O2 Sat by Pulse Oximetry (%) 94 L 03/15/19 17:00 Constitutional: Yes: Well Nourished, No Distress Eyes: Yes: WNL HENT: Yes: WNL Neck: Yes: WNL Cardiovascular: Yes: WNL Respiratory: Yes: Cough Gastrointestinal: Yes: Abdomen, Obese, Hypoactive Bowel Sounds ...Rectal Exam: Yes: Deferred Genitourinary: Yes: WNL Musculoskeletal: Yes: Back Pain Extremities: Yes: WNL Edema: Yes Peripheral Pulses WNL: Yes Integumentary: Yes: WNL Wound/Incision: Yes: Clean/Dry, Well Approximated, Dressing Dry and Intact Neurological: Yes: WNL ...Motor Strength: WNL Labs: CBC, BMP 03/19/19 05:49 03/19/19 06:00 Assessment/Plan -68 y/o man with DM, HTN, gout, and spinal stenosis with segmental instability admitted to the ICU for medical management s/p L2-S1 bilateral laminectomy. cont pain management. incentive spirometry. S/P I&D of surgical wound on 03/15. CT positive for pneumonia, possibly HCAP. IV antibiotics started, now on PO . ID eval appreciated. -GI, DVT prophylaxis. -constipation, SBO? CT showing distal SBO, but pt claims he is passing gas. repeat CT ordered today by surgery. unlikely to need surgery. -morbid obesity: weight loss and healthier lifestyle advised. -chronic gout: cont allopurinol. -HLD: on lipitor -acute on chronic anemia: on folic acid -type 2 DM: on RISS. hold amaryl as it can exacerbate hypoglycemia as a sulfonylurea class medication. -HTN/CHF: on lisinopril, HCTZ, metoprolol, verpamil. monitor electrolytes carefully. -low anion gap: from reduced protein intake. -PT/OT/OB as tolerated -chronic glaucoma: on latanoprost -assessment and plan discussed with pt and medical staff. labwork and meds reviewed. phone calls answered throughout the day. 40 min -
[2019-03-20] MEDS: METOCLOPRAMIDE HCL INJECTION 10 MG/2 ML VIAL IVPUSH SCH (21:20)
[2019-03-20] MEDS: ATORVASTATIN CA 10 MG TABLET (FP) PO SCH (21:21)
[2019-03-20] MEDS: OXYBUTYNIN CHLORIDE 5 MG TABLET PO SCH (21:22)
[2019-03-20] MEDS: LATANOPROST 0.005% OPHTH SOLN 2.5ML BOTTLE OU SCH (21:26)
[2019-03-21] MEDS: ACETAMINOPHEN 325 MG TABLET (FP) PO SCH ×5 (00:12→23:45)
[2019-03-21] MEDS: METOCLOPRAMIDE HCL INJECTION 10 MG/2 ML VIAL IVPUSH SCH ×4 (03:18→21:31)
[2019-03-21] MEDS: SODIUM CHLORIDE 0.45%/POT 20 MEQ/1,000 ML INFUS.BAG IV SCH ×3 (06:24→17:00)
[2019-03-21] MEDS: DOCUSATE SODIUM 100 MG CAPSULE (FP) PO SCH ×3 (06:25→21:32)
[2019-03-21] MEDS: INSULIN SLIDING SCALE (NOVOLOG) 1 VIAL SQ SCH ×4 (06:28→21:37)
[2019-03-21 08:51] LABS: CREATININE 0.9 mg/dl (0.55-1.3)
[2019-03-21 08:52] LABS: ALBUMIN 2.8 g/dl (3.4-5.0); BILIRUBIN,TOTAL 0.5 mg/dl (0.2-1); CALCIUM 8.3 mg/dl (8.5-10); POTASSIUM 3.7 mmol/L (3.5-5.1); TOT PROT 5.9 g/dl (6.4-8.2)
[2019-03-21 08:58] LABS: BASO % 0.5 % (0-2.0); EOS % 4.1 % (0-4.5); HEMATOCRIT 32.7 % (35.4-49); HEMOGLOBIN 10.4 GM/dL (11.7-16.9); LYMPH % 18.8 % (8-40); MCH 22.8 pg (25.7-33.7); MCHC 31.7 g/dl (32.0-35.9); MEAN CELL VOLUME 71.9 fl (80-96); MEAN PLT VOLUME 8.9 fl (7.5-11.1); MONO % 9.9 % (3.8-10.2); NEUT % 66.7 % (42.8-82.8); PLATELET COUNT 294 K/MM3 (134-434); RBC 4.54 M/mm3 (4.00-5.60); RDW 14.1 % (11.9-15.9); WHITE BLOOD COUNT 11.3 K/mm3 (4.0-10.0)
[2019-03-21] MEDS: AMOX TR/POT CLAV 875MG/125MG TABLETS (FP) PO SCH ×2 (11:03→17:31)
[2019-03-21] MEDS: HYDROCHLOROTHIAZIDE 25 MG TABLET (FP) PO SCH (11:04)
[2019-03-21] MEDS: FOLIC ACID 1 MG TABLET (FP) PO SCH (11:04)
[2019-03-21] MEDS: ALLOPURINOL 100 MG TABLET (FP) PO SCH (11:04)
[2019-03-21] MEDS: VERAPAMIL HCL 240 MG E.R. TABLET PO SCH (11:05)
[2019-03-21] MEDS: LISINOPRIL 20 MG TABLET (FP) PO SCH (11:05)
[2019-03-21] MEDS: EPLERENONE 25 MG TABLET PO SCH (11:06)
[2019-03-21] MEDS: POLYETHYLENE GLYCOL 3350 119 GM BTL PO SCH ×2 (11:07→21:35)
[2019-03-21] MEDS: METOPROLOL TARTRATE 25 MG TABLET (FP) PO SCH ×2 (11:07→21:32)
[2019-03-21] MEDS: oxyCODONE HCL 10 MG SUSTAINED ACTING TABLET PO SCH ×2 (11:07→21:32)
--- NOTE | 2019-03-21 11:26 | PN ---
Progress Note, Physician History of Present Illness: stable no new issues still gi function not that good not hungry passing flatus though - Current Medication List Current Medications: Active Medications Acetaminophen (Tylenol -) 650 mg PO Q6H [facility] Last Admin: 03/21/19 06:25 Dose: 650 mg Allopurinol (Zyloprim -) 100 mg PO DAILY [facility] Last Admin: 03/21/19 11:04 Dose: 100 mg Amoxicillin/Clavulanate Potassium (Augmentin - 875mg Tablet) 1 tab PO BID@0800, 1730 [facility] Last Admin: 03/21/19 11:03 Dose: 1 tab Atorvastatin Calcium (Lipitor -) 10 mg PO HS [facility] Last Admin: 03/20/19 21:21 Dose: 10 mg Brimonidine Tartrate (Alphagan P 0.1% -) 1 drop OU DAILY [facility] Last Admin: 03/20/19 10:36 Dose: 1 drop Docusate Sodium (Colace -) 100 mg PO TID [facility] Last Admin: 03/21/19 06:25 Dose: 100 mg Eplerenone (Eplerenone) 50 mg PO DAILY [facility] Last Admin: 03/21/19 11:06 Dose: 50 mg Folic Acid (Folic Acid -) 1 mg PO DAILY [facility] Last Admin: 03/21/19 11:04 Dose: 1 mg Hydrochlorothiazide (Hctz -) 25 mg PO DAILY [facility] Last Admin: 03/21/19 11:04 Dose: 25 mg Potassium Chloride/Sodium Chloride (1/2ns+20meq Kcl) 20 meq in 1,000 mls @ 125 mls/hr IV ASDIR [facility] Last Admin: 03/21/19 06:24 Dose: 125 mls/hr Insulin Aspart (Novolog Vial Sliding Scale -) 1 vial SQ ACHS [facility]; Protocol Last Admin: 03/21/19 06:28 Dose: Not Given Latanoprost (Xalatan 0.005% Eye Drops -) 1 drop OU HS [facility] Last Admin: 03/20/19 21:26 Dose: 1 drop Lisinopril (Prinivil) 20 mg PO DAILY [facility] Last Admin: 03/21/19 11:05 Dose: 20 mg Metoclopramide HCl (Reglan Injection -) 10 mg IVPUSH Q6H-IV [facility] Last Admin: 03/21/19 11:04 Dose: 10 mg Metoprolol Tartrate (Lopressor -) 25 mg PO BID [facility] Last Admin: 03/21/19 11:07 Dose: 25 mg Oxybutynin Chloride (Ditropan -) 5 mg PO HS [facility] Last Admin: 03/20/19 21:22 Dose: 5 mg Oxycodone HCl (Oxycontin -) 10 mg PO BID [facility] Last Admin: 03/21/19 11:07 Dose: 10 mg Oxycodone HCl (Roxicodone -) 5 mg PO Q3H PRN PRN Reason: PAIN LEVEL 1-5 Oxycodone HCl (Roxicodone -) 10 mg PO Q3H PRN PRN Reason: PAIN LEVEL 6-10 Last Admin: 03/20/19 06:25 Dose: 10 mg Polyethylene Glycol (Miralax (For Daily Use) -) 17 gm PO BID [facility] Last Admin: 03/21/19 11:07 Dose: 17 grams Verapamil HCl (Calan Sr -) 240 mg PO DAILY [facility] Last Admin: 03/21/19 11:05 Dose: 240 mg - Objective Vital Signs: Vital Signs Temperature 98.1 F 03/21/19 06:30 Pulse Rate 70 03/21/19 06:30 Respiratory Rate 20 03/21/19 06:30 Blood Pressure 130/77 03/21/19 06:30 O2 Sat by Pulse Oximetry (%) 94 L 03/15/19 17:00 Constitutional: Yes: No Distress, Calm Cardiovascular: Yes: S1, S2 Respiratory: Yes: Regular, CTA Bilaterally Gastrointestinal: Yes: Soft, Hypoactive Bowel Sounds Musculoskeletal: Yes: WNL Extremities: Yes: WNL Wound/Incision: Yes: Dressing Dry and Intact Neurological: Yes: Alert, Oriented Psychiatric: Yes: Alert, Oriented Labs: CBC, BMP 03/21/19 07:08 03/21/19 07:08 Assessment/Plan -Problem List - Problems (1) Degenerative lumbar spinal stenosis Code(s): M48.061 - SPINAL STENOSIS, LUMBAR REGION WITHOUT NEUROGENIC MARY (2) Diabetes Code(s): E11.9 - TYPE 2 DIABETES MELLITUS WITHOUT COMPLICATIONS (3) Gout Code(s): M10.9 - GOUT, UNSPECIFIED (4) HTN (hypertension) Code(s): I10 - ESSENTIAL (PRIMARY) HYPERTENSION (5) Kyphosis Code(s): M40.209 - UNSPECIFIED KYPHOSIS, SITE UNSPECIFIED Assessment/Plan Leukocytosis Spinal stenosis s/p L2-S1 b/l laminectomy/osteotomy s/p I+D/washout POD#2 DM Gout HTN plan augmentin wound care rest as per surgery monitor gi function
[2019-03-21] MEDS: BRIMONIDINE TARTRATE 0.1% OPHTHALMIC 5 ML BOTTLE OU SCH (11:35)
--- NOTE | 2019-03-21 11:53 | PN ---
Progress Note (short form) - Note Progress Note: surgery kub stil shows dilated small bowel. some contrast likey in right colon. pt now with flatus but mild nausea. ct official read pending Plan- ileus >>> distal sbo. secondary to surgery x 2, narcotics, lack of ambulation, and possible splanchnic compression of mesenteric nerves by original hematoma. keep npo today. cont reglan. ngt if vomits. Gi eval for management of ileus.
[2019-03-21] MEDS ORDERED: PT OWN MED DRAWER 7, Y5N ONE (16:57)
--- NOTE | 2019-03-21 18:35 | PN ---
Progress Note, Physician Chief Complaint: back pain - Current Medication List Current Medications: Active Medications Acetaminophen (Tylenol -) 650 mg PO Q6H [facility] Last Admin: 03/21/19 17:29 Dose: 650 mg Allopurinol (Zyloprim -) 100 mg PO DAILY [facility] Last Admin: 03/21/19 11:04 Dose: 100 mg Amoxicillin/Clavulanate Potassium (Augmentin - 875mg Tablet) 1 tab PO BID@0800, 1730 [facility] Last Admin: 03/21/19 17:31 Dose: 1 tab Atorvastatin Calcium (Lipitor -) 10 mg PO HS [facility] Last Admin: 03/20/19 21:21 Dose: 10 mg Brimonidine Tartrate (Alphagan P 0.1% -) 1 drop OU DAILY [facility] Last Admin: 03/21/19 11:35 Dose: 1 drop Docusate Sodium (Colace -) 100 mg PO TID [facility] Last Admin: 03/21/19 14:35 Dose: 100 mg Eplerenone (Eplerenone) 50 mg PO DAILY [facility] Last Admin: 03/21/19 11:06 Dose: 50 mg Folic Acid (Folic Acid -) 1 mg PO DAILY [facility] Last Admin: 03/21/19 11:04 Dose: 1 mg Hydrochlorothiazide (Hctz -) 25 mg PO DAILY [facility] Last Admin: 03/21/19 11:04 Dose: 25 mg Potassium Chloride/Sodium Chloride (1/2ns+20meq Kcl) 20 meq in 1,000 mls @ 125 mls/hr IV ASDIR [facility] Last Admin: 03/21/19 17:00 Dose: Not Given Insulin Aspart (Novolog Vial Sliding Scale -) 1 vial SQ ACHS [facility]; Protocol Last Admin: 03/21/19 16:22 Dose: Not Given Latanoprost (Xalatan 0.005% Eye Drops -) 1 drop OU HS [facility] Last Admin: 03/20/19 21:26 Dose: 1 drop Lisinopril (Prinivil) 20 mg PO DAILY [facility] Last Admin: 03/21/19 11:05 Dose: 20 mg Metoclopramide HCl (Reglan Injection -) 10 mg IVPUSH Q6H-IV [facility] Last Admin: 03/21/19 14:36 Dose: 10 mg Metoprolol Tartrate (Lopressor -) 25 mg PO BID [facility] Last Admin: 03/21/19 11:07 Dose: 25 mg Oxybutynin Chloride (Ditropan -) 5 mg PO HS [facility] Last Admin: 03/20/19 21:22 Dose: 5 mg Oxycodone HCl (Oxycontin -) 10 mg PO BID [facility] Last Admin: 03/21/19 11:07 Dose: 10 mg Oxycodone HCl (Roxicodone -) 5 mg PO Q3H PRN PRN Reason: PAIN LEVEL 1-5 Oxycodone HCl (Roxicodone -) 10 mg PO Q3H PRN PRN Reason: PAIN LEVEL 6-10 Last Admin: 03/20/19 06:25 Dose: 10 mg Polyethylene Glycol (Miralax (For Daily Use) -) 17 gm PO BID [facility] Last Admin: 03/21/19 11:07 Dose: 17 grams Verapamil HCl (Calan Sr -) 240 mg PO DAILY [facility] Last Admin: 03/21/19 11:05 Dose: 240 mg - Objective Vital Signs: Vital Signs Temperature 98.3 F 03/21/19 16:30 Pulse Rate 70 03/21/19 16:30 Respiratory Rate 20 03/21/19 16:30 Blood Pressure 125/57 L 03/21/19 16:30 O2 Sat by Pulse Oximetry (%) 94 L 03/15/19 17:00 Constitutional: Yes: Obese Eyes: Yes: WNL HENT: Yes: WNL Neck: Yes: WNL Cardiovascular: Yes: WNL Respiratory: Yes: WNL Gastrointestinal: Yes: Abdomen, Obese, Distention, Hypoactive Bowel Sounds Genitourinary: Yes: WNL Musculoskeletal: Yes: Back Pain Extremities: Yes: WNL Edema: Yes Peripheral Pulses WNL: Yes Integumentary: Yes: WNL Wound/Incision: Yes: Clean/Dry, Well Approximated Neurological: Yes: WNL ...Motor Strength: WNL Psychiatric: Yes: WNL Labs: CBC, BMP 03/21/19 07:08 03/21/19 07:08 Assessment/Plan -68 y/o man with DM, HTN, gout, and spinal stenosis with segmental instability admitted to the ICU for medical management s/p L2-S1 bilateral laminectomy. cont pain management. incentive spirometry. S/P I&D of surgical wound on 03/15. CT positive for pneumonia, possibly HCAP. IV antibiotics started, now on PO . ID eval appreciated. -GI, DVT prophylaxis. -constipation, SBO? CT showing distal SBO. surgical eval appreciated. no surgical intervention needed. will need NGT if symptoms persist. keep NPO. -morbid obesity: weight loss and healthier lifestyle advised. -chronic gout: cont allopurinol. -HLD: on lipitor -acute on chronic anemia: on folic acid -type 2 DM: on RISS. hold amaryl as it can exacerbate hypoglycemia as a sulfonylurea class medication. -HTN/CHF: on lisinopril, HCTZ, metoprolol, verpamil. monitor electrolytes carefully. -low anion gap: from reduced protein intake. -PT/OT/OB as tolerated -chronic glaucoma: on latanoprost -assessment and plan discussed with pt and medical staff. labwork and meds reviewed. phone calls answered throughout the day. 40 min -
--- NOTE | 2019-03-21 19:14 | PN ---
Progress Note (short form) - Note Progress Note: 68M s/p L2-S1 posterior decompression and instrumented spinal fusion POD #9 and s/p superficial lumbar spine wound I&D POD #5. Pain well controlled. No acute events overnight. Pt. denies overnight history of headaches, chest pain, shortness of breath, vomiting, chills, & sweats. (+) Nausea d/t post-op ileus. (+) Voiding; (-) Flatus; (-) BM. (+) Walked in room with rolling walker. All labs and vitals reviewed. PE: AAO x 3, NAD. Abdomen: Distended, NT, (+) Tympanic RUQ, LUQ & Dull RLQ, LLQ to percussion. L-Spine: Incision, dressing C/D/I. NVI at baseline B/L LE. 68M s/p L2-S1 posterior decompression and instrumented spinal fusion POD #9 and s/p superficial lumbar spine wound I&D POD #5. -Pain control: NO NSAID's. -DVT PPx: -Mechanical only: SAHARA's, SCD's. -Chemical: None. -Incentive spirometry q15 min. -NPO, IVF. -f/u surgery team rec's re: post-op ileus. -PT/OT/Rehab, OOB. -WBAT B/L LE. -q4h B/L LE [place] checks. -Raised toilet seat. -No bending, lifting (>5 lbs), or twisting. -Care per medical hospitalist Dr. Ventura. -Discharge planning: f/u 7-10 days [facility]; call for appointment; . -Will follow. Jacob Hewitt MD (Orthopaedic Surgery).
[2019-03-21] MEDS: ATORVASTATIN CA 10 MG TABLET (FP) PO SCH (21:32)
[2019-03-21] MEDS: OXYBUTYNIN CHLORIDE 5 MG TABLET PO SCH (21:32)
[2019-03-21] MEDS: LATANOPROST 0.005% OPHTH SOLN 2.5ML BOTTLE OU SCH (21:37)
[2019-03-22] MEDS: SODIUM CHLORIDE 0.45%/POT 20 MEQ/1,000 ML INFUS.BAG IV SCH ×2 (00:36→16:27)
[2019-03-22] MEDS: METOCLOPRAMIDE HCL INJECTION 10 MG/2 ML VIAL IVPUSH SCH ×4 (02:51→22:10)
[2019-03-22] MEDS: DOCUSATE SODIUM 100 MG CAPSULE (FP) PO SCH ×3 (05:41→22:07)
[2019-03-22] MEDS: ACETAMINOPHEN 325 MG TABLET (FP) PO SCH ×3 (05:41→17:34)
[2019-03-22] MEDS: INSULIN SLIDING SCALE (NOVOLOG) 1 VIAL SQ SCH ×4 (06:01→23:21)
[2019-03-22] MEDS ORDERED: PT OWN MED DRAWER 7, Y5N ONE (07:17)
--- NOTE | 2019-03-22 09:42 | PN ---
Progress Note, Physician History of Present Illness: stable gi function returning - Current Medication List Current Medications: Active Medications Acetaminophen (Tylenol -) 650 mg PO Q6H [facility] Last Admin: 03/22/19 05:41 Dose: 650 mg Allopurinol (Zyloprim -) 100 mg PO DAILY [facility] Last Admin: 03/21/19 11:04 Dose: 100 mg Amoxicillin/Clavulanate Potassium (Augmentin - 875mg Tablet) 1 tab PO BID@0800, 1730 [facility] Last Admin: 03/21/19 17:31 Dose: 1 tab Atorvastatin Calcium (Lipitor -) 10 mg PO HS [facility] Last Admin: 03/21/19 21:32 Dose: 10 mg Brimonidine Tartrate (Alphagan P 0.1% -) 1 drop OU DAILY [facility] Last Admin: 03/21/19 11:35 Dose: 1 drop Docusate Sodium (Colace -) 100 mg PO TID [facility] Last Admin: 03/22/19 05:41 Dose: 100 mg Eplerenone (Eplerenone) 50 mg PO DAILY [facility] Last Admin: 03/21/19 11:06 Dose: 50 mg Folic Acid (Folic Acid -) 1 mg PO DAILY [facility] Last Admin: 03/21/19 11:04 Dose: 1 mg Hydrochlorothiazide (Hctz -) 25 mg PO DAILY [facility] Last Admin: 03/21/19 11:04 Dose: 25 mg Potassium Chloride/Sodium Chloride (1/2ns+20meq Kcl) 20 meq in 1,000 mls @ 125 mls/hr IV ASDIR [facility] Last Admin: 03/22/19 00:36 Dose: 125 mls/hr Insulin Aspart (Novolog Vial Sliding Scale -) 1 vial SQ ACHS [facility]; Protocol Last Admin: 03/22/19 06:01 Dose: Not Given Latanoprost (Xalatan 0.005% Eye Drops -) 1 drop OU HS [facility] Last Admin: 03/21/19 21:37 Dose: 1 drop Lisinopril (Prinivil) 20 mg PO DAILY [facility] Last Admin: 03/21/19 11:05 Dose: 20 mg Metoclopramide HCl (Reglan Injection -) 10 mg IVPUSH Q6H-IV [facility] Last Admin: 03/22/19 02:51 Dose: 10 mg Metoprolol Tartrate (Lopressor -) 25 mg PO BID [facility] Last Admin: 03/21/19 21:32 Dose: 25 mg Oxybutynin Chloride (Ditropan -) 5 mg PO HS [facility] Last Admin: 03/21/19 21:32 Dose: 5 mg Oxycodone HCl (Oxycontin -) 10 mg PO BID [facility] Last Admin: 03/21/19 21:32 Dose: 10 mg Oxycodone HCl (Roxicodone -) 5 mg PO Q3H PRN PRN Reason: PAIN LEVEL 1-5 Oxycodone HCl (Roxicodone -) 10 mg PO Q3H PRN PRN Reason: PAIN LEVEL 6-10 Last Admin: 03/20/19 06:25 Dose: 10 mg Polyethylene Glycol (Miralax (For Daily Use) -) 17 gm PO BID [facility] Last Admin: 03/21/19 21:35 Dose: 17 grams Verapamil HCl (Calan Sr -) 240 mg PO DAILY [facility] Last Admin: 03/21/19 11:05 Dose: 240 mg - Objective Vital Signs: Vital Signs Temperature 98.8 F 03/22/19 09:24 Pulse Rate 74 03/22/19 09:24 Respiratory Rate 20 03/22/19 09:24 Blood Pressure 128/85 03/22/19 09:24 O2 Sat by Pulse Oximetry (%) 98 03/22/19 09:00 Constitutional: Yes: No Distress, Calm Gastrointestinal: Yes: Soft, Hypoactive Bowel Sounds Musculoskeletal: Yes: WNL Extremities: Yes: WNL Neurological: Yes: Alert, Oriented Psychiatric: Yes: Alert, Oriented Labs: CBC, BMP 03/21/19 07:08 03/21/19 07:08 Assessment/Plan -Problem List - Problems (1) Degenerative lumbar spinal stenosis Code(s): M48.061 - SPINAL STENOSIS, LUMBAR REGION WITHOUT NEUROGENIC MARY (2) Diabetes Code(s): E11.9 - TYPE 2 DIABETES MELLITUS WITHOUT COMPLICATIONS (3) Gout Code(s): M10.9 - GOUT, UNSPECIFIED (4) HTN (hypertension) Code(s): I10 - ESSENTIAL (PRIMARY) HYPERTENSION (5) Kyphosis Code(s): M40.209 - UNSPECIFIED KYPHOSIS, SITE UNSPECIFIED Assessment/Plan Leukocytosis Spinal stenosis s/p L2-S1 b/l laminectomy/osteotomy s/p I+D/washout POD#2 DM Gout HTN plan will stop abx wound care rest as per surgery monitor gi function
[2019-03-22] MEDS: BRIMONIDINE TARTRATE 0.1% OPHTHALMIC 5 ML BOTTLE OU SCH (09:53)
[2019-03-22] MEDS: HYDROCHLOROTHIAZIDE 25 MG TABLET (FP) PO SCH (09:54)
[2019-03-22] MEDS: ALLOPURINOL 100 MG TABLET (FP) PO SCH (09:54)
[2019-03-22] MEDS: FOLIC ACID 1 MG TABLET (FP) PO SCH (09:54)
[2019-03-22] MEDS: LISINOPRIL 20 MG TABLET (FP) PO SCH (09:55)
[2019-03-22] MEDS: METOPROLOL TARTRATE 25 MG TABLET (FP) PO SCH ×2 (09:55→22:07)
[2019-03-22] MEDS: VERAPAMIL HCL 240 MG E.R. TABLET PO SCH (09:55)
[2019-03-22] MEDS: POLYETHYLENE GLYCOL 3350 119 GM BTL PO SCH ×2 (09:57→22:09)
[2019-03-22] MEDS: oxyCODONE HCL 10 MG SUSTAINED ACTING TABLET PO SCH ×2 (09:57→22:07)
[2019-03-22] MEDS: AMOX TR/POT CLAV 875MG/125MG TABLETS (FP) PO SCH (09:59)
[2019-03-22] MEDS: EPLERENONE 25 MG TABLET PO SCH (11:20)
--- NOTE | 2019-03-22 13:01 | PN ---
Progress Note, Physician Chief Complaint: back pain - Current Medication List Current Medications: Active Medications Acetaminophen (Tylenol -) 650 mg PO Q6H [facility] Last Admin: 03/22/19 11:47 Dose: 650 mg Allopurinol (Zyloprim -) 100 mg PO DAILY [facility] Last Admin: 03/22/19 09:54 Dose: 100 mg Atorvastatin Calcium (Lipitor -) 10 mg PO HS [facility] Last Admin: 03/21/19 21:32 Dose: 10 mg Brimonidine Tartrate (Alphagan P 0.1% -) 1 drop OU DAILY [facility] Last Admin: 03/22/19 09:53 Dose: 1 drop Docusate Sodium (Colace -) 100 mg PO TID [facility] Last Admin: 03/22/19 05:41 Dose: 100 mg Eplerenone (Eplerenone) 50 mg PO DAILY [facility] Last Admin: 03/22/19 11:20 Dose: 50 mg Folic Acid (Folic Acid -) 1 mg PO DAILY [facility] Last Admin: 03/22/19 09:54 Dose: 1 mg Hydrochlorothiazide (Hctz -) 25 mg PO DAILY [facility] Last Admin: 03/22/19 09:54 Dose: 25 mg Potassium Chloride/Sodium Chloride (1/2ns+20meq Kcl) 20 meq in 1,000 mls @ 125 mls/hr IV ASDIR [facility] Last Admin: 03/22/19 00:36 Dose: 125 mls/hr Insulin Aspart (Novolog Vial Sliding Scale -) 1 vial SQ ACHS [facility]; Protocol Last Admin: 03/22/19 11:41 Dose: Not Given Latanoprost (Xalatan 0.005% Eye Drops -) 1 drop OU HS [facility] Last Admin: 03/21/19 21:37 Dose: 1 drop Lisinopril (Prinivil) 20 mg PO DAILY [facility] Last Admin: 03/22/19 09:55 Dose: 20 mg Metoclopramide HCl (Reglan Injection -) 10 mg IVPUSH Q6H-IV [facility] Last Admin: 03/22/19 09:52 Dose: 10 mg Metoprolol Tartrate (Lopressor -) 25 mg PO BID [facility] Last Admin: 03/22/19 09:55 Dose: 25 mg Oxybutynin Chloride (Ditropan -) 5 mg PO HS [facility] Last Admin: 03/21/19 21:32 Dose: 5 mg Oxycodone HCl (Oxycontin -) 10 mg PO BID [facility] Last Admin: 03/22/19 09:57 Dose: 10 mg Oxycodone HCl (Roxicodone -) 5 mg PO Q3H PRN PRN Reason: PAIN LEVEL 1-5 Oxycodone HCl (Roxicodone -) 10 mg PO Q3H PRN PRN Reason: PAIN LEVEL 6-10 Last Admin: 03/20/19 06:25 Dose: 10 mg Polyethylene Glycol (Miralax (For Daily Use) -) 17 gm PO BID [facility] Last Admin: 03/22/19 09:57 Dose: 17 grams Verapamil HCl (Calan Sr -) 240 mg PO DAILY [facility] Last Admin: 03/22/19 09:55 Dose: 240 mg - Objective Vital Signs: Vital Signs Temperature 98.8 F 03/22/19 09:24 Pulse Rate 74 03/22/19 09:24 Respiratory Rate 20 03/22/19 09:24 Blood Pressure 128/85 03/22/19 09:24 O2 Sat by Pulse Oximetry (%) 98 03/22/19 09:00 Constitutional: Yes: Well Nourished, Obese Eyes: Yes: WNL HENT: Yes: WNL Neck: Yes: WNL Cardiovascular: Yes: WNL Respiratory: Yes: WNL Gastrointestinal: Yes: Abdomen, Obese, Hypoactive Bowel Sounds Genitourinary: Yes: WNL Musculoskeletal: Yes: Back Pain Extremities: Yes: WNL Edema: Yes Integumentary: Yes: WNL Wound/Incision: Yes: Clean/Dry, Well Approximated, Dressing Dry and Intact Labs: CBC, BMP 03/21/19 07:08 03/21/19 07:08 Assessment/Plan -68 y/o man with DM, HTN, gout, and spinal stenosis with segmental instability admitted to the ICU for medical management s/p L2-S1 bilateral laminectomy. cont pain management. incentive spirometry. S/P I&D of surgical wound on 03/15. CT positive for pneumonia, possibly HCAP. IV antibiotics started, now off . ID eval appreciated. -GI, DVT prophylaxis. -constipation, SBO? CT showing distal SBO. surgical eval appreciated. no surgical intervention needed. will need NGT if symptoms persist. passing gas today. appears more comfortable. -morbid obesity: weight loss and healthier lifestyle advised. -chronic gout: cont allopurinol. -HLD: on lipitor -acute on chronic anemia: on folic acid -type 2 DM: on RISS. hold amaryl as it can exacerbate hypoglycemia as a sulfonylurea class medication. -HTN/CHF: on lisinopril, HCTZ, metoprolol, verpamil. monitor electrolytes carefully. -low anion gap: from reduced protein intake. -PT/OT/OB as tolerated -chronic glaucoma: on latanoprost -assessment and plan discussed with pt and medical staff. labwork and meds reviewed. hopefully will DC to rehab early next week phone calls answered throughout the day. 40 min -
[2019-03-22] MEDS: ATORVASTATIN CA 10 MG TABLET (FP) PO SCH (22:07)
[2019-03-22] MEDS: OXYBUTYNIN CHLORIDE 5 MG TABLET PO SCH (22:09)
[2019-03-22] MEDS: LATANOPROST 0.005% OPHTH SOLN 2.5ML BOTTLE OU SCH (22:13)
[2019-03-23] MEDS: ACETAMINOPHEN 325 MG TABLET (FP) PO SCH ×4 (01:09→17:46)
[2019-03-23] MEDS: SODIUM CHLORIDE 0.45%/POT 20 MEQ/1,000 ML INFUS.BAG IV SCH (01:30)
[2019-03-23] MEDS: METOCLOPRAMIDE HCL INJECTION 10 MG/2 ML VIAL IVPUSH SCH ×2 (03:53→09:58)
[2019-03-23] MEDS: DOCUSATE SODIUM 100 MG CAPSULE (FP) PO SCH ×3 (05:46→21:13)
[2019-03-23] MEDS: INSULIN SLIDING SCALE (NOVOLOG) 1 VIAL SQ SCH ×4 (07:35→21:17)
[2019-03-23] MEDS ORDERED: PT OWN MED DRAWER 7, Y5N ONE (09:57)
[2019-03-23] MEDS: oxyCODONE HCL 10 MG SUSTAINED ACTING TABLET PO SCH ×2 (09:58→21:14)
[2019-03-23] MEDS: ALLOPURINOL 100 MG TABLET (FP) PO SCH (09:58)
[2019-03-23] MEDS: FOLIC ACID 1 MG TABLET (FP) PO SCH (09:58)
[2019-03-23] MEDS: METOPROLOL TARTRATE 25 MG TABLET (FP) PO SCH (09:59)
[2019-03-23] MEDS: VERAPAMIL HCL 240 MG E.R. TABLET PO SCH (09:59)
[2019-03-23] MEDS: HYDROCHLOROTHIAZIDE 25 MG TABLET (FP) PO SCH (09:59)
[2019-03-23] MEDS: LISINOPRIL 20 MG TABLET (FP) PO SCH (09:59)
[2019-03-23] MEDS: EPLERENONE 25 MG TABLET PO SCH (10:00)
[2019-03-23] MEDS: BRIMONIDINE TARTRATE 0.1% OPHTHALMIC 5 ML BOTTLE OU SCH (10:03)
--- NOTE | 2019-03-23 10:54 | PN ---
Progress Note, Physician History of Present Illness: patient stable no issues dressing coming apart - Current Medication List Current Medications: Active Medications Acetaminophen (Tylenol -) 650 mg PO Q6H [facility] Last Admin: 03/23/19 05:50 Dose: 650 mg Allopurinol (Zyloprim -) 100 mg PO DAILY [facility] Last Admin: 03/23/19 09:58 Dose: 100 mg Atorvastatin Calcium (Lipitor -) 10 mg PO HS [facility] Last Admin: 03/22/19 22:07 Dose: 10 mg Brimonidine Tartrate (Alphagan P 0.1% -) 1 drop OU DAILY [facility] Last Admin: 03/23/19 10:03 Dose: 1 drop Docusate Sodium (Colace -) 100 mg PO TID [facility] Last Admin: 03/23/19 05:46 Dose: Not Given Eplerenone (Eplerenone) 50 mg PO DAILY [facility] Last Admin: 03/23/19 10:00 Dose: 50 mg Folic Acid (Folic Acid -) 1 mg PO DAILY [facility] Last Admin: 03/23/19 09:58 Dose: 1 mg Hydrochlorothiazide (Hctz -) 25 mg PO DAILY [facility] Last Admin: 03/23/19 09:59 Dose: 25 mg Potassium Chloride/Sodium Chloride (1/2ns+20meq Kcl) 20 meq in 1,000 mls @ 125 mls/hr IV ASDIR [facility] Last Admin: 03/23/19 01:30 Dose: 125 mls/hr Insulin Aspart (Novolog Vial Sliding Scale -) 1 vial SQ ACHS [facility]; Protocol Last Admin: 03/23/19 07:35 Dose: Not Given Latanoprost (Xalatan 0.005% Eye Drops -) 1 drop OU HS [facility] Last Admin: 03/22/19 22:13 Dose: 1 drop Lisinopril (Prinivil) 20 mg PO DAILY [facility] Last Admin: 03/23/19 09:59 Dose: 20 mg Metoclopramide HCl (Reglan Injection -) 10 mg IVPUSH Q6H-IV [facility] Last Admin: 03/23/19 09:58 Dose: 10 mg Metoprolol Tartrate (Lopressor -) 25 mg PO BID [facility] Last Admin: 03/23/19 09:59 Dose: 25 mg Oxybutynin Chloride (Ditropan -) 5 mg PO HS [facility] Last Admin: 03/22/19 22:09 Dose: 5 mg Oxycodone HCl (Oxycontin -) 10 mg PO BID [facility] Last Admin: 03/23/19 09:58 Dose: 10 mg Polyethylene Glycol (Miralax (For Daily Use) -) 17 gm PO BID [facility] Last Admin: 03/22/19 22:09 Dose: 17 grams Verapamil HCl (Calan Sr -) 240 mg PO DAILY [facility] Last Admin: 03/23/19 09:59 Dose: 240 mg - Objective Vital Signs: Vital Signs Temperature 98.4 F 03/23/19 06:24 Pulse Rate 82 03/23/19 06:24 Respiratory Rate 20 03/23/19 06:24 Blood Pressure 152/80 03/23/19 06:24 O2 Sat by Pulse Oximetry (%) 99 03/22/19 21:00 Constitutional: Yes: No Distress, Calm Cardiovascular: Yes: Regular Rate and Rhythm Respiratory: Yes: Regular, CTA Bilaterally Gastrointestinal: Yes: Normal Bowel Sounds, Soft Musculoskeletal: Yes: WNL Extremities: Yes: WNL Wound/Incision: Yes: Other (dressing peeling off) Psychiatric: Yes: Alert, Oriented Labs: CBC, BMP 03/21/19 07:08 03/21/19 07:08 Assessment/Plan -Problem List - Problems (1) Degenerative lumbar spinal stenosis Code(s): M48.061 - SPINAL STENOSIS, LUMBAR REGION WITHOUT NEUROGENIC MARY (2) Diabetes Code(s): E11.9 - TYPE 2 DIABETES MELLITUS WITHOUT COMPLICATIONS (3) Gout Code(s): M10.9 - GOUT, UNSPECIFIED (4) HTN (hypertension) Code(s): I10 - ESSENTIAL (PRIMARY) HYPERTENSION (5) Kyphosis Code(s): M40.209 - UNSPECIFIED KYPHOSIS, SITE UNSPECIFIED Assessment/Plan Leukocytosis Spinal stenosis s/p L2-S1 b/l laminectomy/osteotomy s/p I+D/washout POD#2 DM Gout HTN plan stable re dressing
[2019-03-23] MEDS: SENNOSIDES 8.6MG TABLET (FP) PO SCH ×2 (11:37→21:13)
[2019-03-23] MEDS: POLYETHYLENE GLYCOL 3350 119 GM BTL PO SCH ×2 (11:38→21:17)
--- NOTE | 2019-03-23 12:35 | PN ---
Progress Note, Physician Chief Complaint: back pain - Current Medication List Current Medications: Active Medications Acetaminophen (Tylenol -) 650 mg PO Q6H [facility] Last Admin: 03/23/19 11:38 Dose: 650 mg Allopurinol (Zyloprim -) 100 mg PO DAILY [facility] Last Admin: 03/23/19 09:58 Dose: 100 mg Atorvastatin Calcium (Lipitor -) 10 mg PO HS [facility] Last Admin: 03/22/19 22:07 Dose: 10 mg Brimonidine Tartrate (Alphagan P 0.1% -) 1 drop OU DAILY [facility] Last Admin: 03/23/19 10:03 Dose: 1 drop Docusate Sodium (Colace -) 300 mg PO BID [facility] Last Admin: 03/23/19 11:38 Dose: 300 mg Eplerenone (Eplerenone) 50 mg PO DAILY [facility] Last Admin: 03/23/19 10:00 Dose: 50 mg Folic Acid (Folic Acid -) 1 mg PO DAILY [facility] Last Admin: 03/23/19 09:58 Dose: 1 mg Hydrochlorothiazide (Hctz -) 25 mg PO DAILY [facility] Last Admin: 03/23/19 09:59 Dose: 25 mg Insulin Aspart (Novolog Vial Sliding Scale -) 1 vial SQ [facility]; Protocol Last Admin: 03/23/19 11:54 Dose: Not Given Latanoprost (Xalatan 0.005% Eye Drops -) 1 drop OU [facility] Last Admin: 03/22/19 22:13 Dose: 1 drop Lisinopril (Prinivil) 20 mg PO DAILY [facility] Last Admin: 03/23/19 09:59 Dose: 20 mg Metoclopramide HCl (Reglan -) 10 mg PO DAILY [facility] Metoprolol Succinate (Toprol Xl -) 50 mg PO DAILY [facility] Oxybutynin Chloride (Ditropan -) 5 mg PO HS [facility] Last Admin: 03/22/19 22:09 Dose: 5 mg Oxycodone HCl (Oxycontin -) 10 mg PO BID [facility] Last Admin: 03/23/19 09:58 Dose: 10 mg Polyethylene Glycol (Miralax (For Daily Use) -) 17 gm PO BID [facility] Last Admin: 03/23/19 11:38 Dose: 17 grams Senna (Senna -) 3 tab PO BID [facility] Last Admin: 03/23/19 11:37 Dose: 3 tab Verapamil HCl (Calan Sr -) 240 mg PO DAILY [facility] Last Admin: 03/23/19 09:59 Dose: 240 mg - Objective Vital Signs: Vital Signs Temperature 98.4 F 03/23/19 06:24 Pulse Rate 82 03/23/19 06:24 Respiratory Rate 20 03/23/19 06:24 Blood Pressure 152/80 03/23/19 06:24 O2 Sat by Pulse Oximetry (%) 99 03/22/19 21:00 Constitutional: Yes: Well Nourished, Obese Eyes: Yes: WNL HENT: Yes: WNL Neck: Yes: WNL Cardiovascular: Yes: WNL Respiratory: Yes: WNL Gastrointestinal: Yes: WNL Genitourinary: Yes: WNL Musculoskeletal: Yes: Back Pain Extremities: Yes: WNL Edema: Yes Peripheral Pulses WNL: Yes Integumentary: Yes: WNL Wound/Incision: Yes: Clean/Dry Neurological: Yes: WNL ...Motor Strength: WNL Psychiatric: Yes: WNL Labs: CBC, BMP 03/21/19 07:08 03/21/19 07:08 Assessment/Plan -68 y/o man with DM, HTN, gout, and spinal stenosis with segmental instability admitted to the ICU for medical management s/p L2-S1 bilateral laminectomy. cont pain management. incentive spirometry. S/P I&D of surgical wound on 03/15. CT positive for pneumonia, possibly HCAP. IV antibiotics started, now off . ID eval appreciated. -GI, DVT prophylaxis. -constipation, SBO? CT showing distal SBO. surgical eval appreciated. no surgical intervention needed. had BM today. will start clears. -morbid obesity: weight loss and healthier lifestyle advised. -chronic gout: cont allopurinol. -HLD: on lipitor -acute on chronic anemia: on folic acid -type 2 DM: on RISS. hold amaryl as it can exacerbate hypoglycemia as a sulfonylurea class medication. -HTN/CHF: on lisinopril, HCTZ, verpamil. uncontrolled. DC's lopressor, started toprol XL 50 mg daily. -low anion gap: from reduced protein intake. -PT/OT/OB as tolerated -chronic glaucoma: on latanoprost -assessment and plan discussed with pt and medical staff. labwork and meds reviewed. hopefully will DC to rehab early next week phone calls answered throughout the day. 40 min -
[2019-03-23] MEDS: ATORVASTATIN CA 10 MG TABLET (FP) PO SCH (21:13)
[2019-03-23] MEDS: OXYBUTYNIN CHLORIDE 5 MG TABLET PO SCH (21:13)
[2019-03-23] MEDS: LATANOPROST 0.005% OPHTH SOLN 2.5ML BOTTLE OU SCH (21:18)
[2019-03-24] MEDS: ACETAMINOPHEN 325 MG TABLET (FP) PO SCH ×4 (00:13→18:38)
[2019-03-24] MEDS: INSULIN SLIDING SCALE (NOVOLOG) 1 VIAL SQ SCH ×4 (06:27→21:13)
[2019-03-24] MEDS: BRIMONIDINE TARTRATE 0.1% OPHTHALMIC 5 ML BOTTLE OU SCH (09:40)
[2019-03-24] MEDS: DOCUSATE SODIUM 100 MG CAPSULE (FP) PO SCH ×2 (09:40→21:10)
[2019-03-24] MEDS: SENNOSIDES 8.6MG TABLET (FP) PO SCH ×2 (09:41→21:09)
[2019-03-24] MEDS: METOCLOPRAMIDE HCL 10 MG TABLET (FP) PO SCH (09:41)
[2019-03-24] MEDS: FOLIC ACID 1 MG TABLET (FP) PO SCH (09:41)
[2019-03-24] MEDS: oxyCODONE HCL 10 MG SUSTAINED ACTING TABLET PO SCH ×2 (09:42→21:17)
[2019-03-24] MEDS: ALLOPURINOL 100 MG TABLET (FP) PO SCH (09:42)
[2019-03-24] MEDS: LISINOPRIL 20 MG TABLET (FP) PO SCH (09:42)
[2019-03-24] MEDS: HYDROCHLOROTHIAZIDE 25 MG TABLET (FP) PO SCH (09:42)
[2019-03-24] MEDS: VERAPAMIL HCL 240 MG E.R. TABLET PO SCH (09:44)
--- NOTE | 2019-03-24 09:44 | PN ---
Progress Note, Physician History of Present Illness: stable no new issues - Current Medication List Current Medications: Active Medications Acetaminophen (Tylenol -) 650 mg PO Q6H [facility] Last Admin: 03/24/19 06:26 Dose: 650 mg Allopurinol (Zyloprim -) 100 mg PO DAILY [facility] Last Admin: 03/23/19 09:58 Dose: 100 mg Atorvastatin Calcium (Lipitor -) 10 mg PO HS [facility] Last Admin: 03/23/19 21:13 Dose: 10 mg Brimonidine Tartrate (Alphagan P 0.1% -) 1 drop OU DAILY [facility] Last Admin: 03/23/19 10:03 Dose: 1 drop Docusate Sodium (Colace -) 300 mg PO BID [facility] Last Admin: 03/23/19 21:13 Dose: 300 mg Eplerenone (Eplerenone) 50 mg PO DAILY [facility] Last Admin: 03/23/19 10:00 Dose: 50 mg Folic Acid (Folic Acid -) 1 mg PO DAILY [facility] Last Admin: 03/23/19 09:58 Dose: 1 mg Hydrochlorothiazide (Hctz -) 25 mg PO DAILY [facility] Last Admin: 03/23/19 09:59 Dose: 25 mg Insulin Aspart (Novolog Vial Sliding Scale -) 1 vial SQ [facility]; Protocol Last Admin: 03/24/19 06:27 Dose: Not Given Latanoprost (Xalatan 0.005% Eye Drops -) 1 drop OU [facility] Last Admin: 03/23/19 21:18 Dose: 1 drop Lisinopril (Prinivil) 20 mg PO DAILY [facility] Last Admin: 03/23/19 09:59 Dose: 20 mg Metoclopramide HCl (Reglan -) 10 mg PO DAILY [facility] Metoprolol Succinate (Toprol Xl -) 50 mg PO DAILY [facility] Last Admin: 03/23/19 14:18 Dose: 50 mg Oxybutynin Chloride (Ditropan -) 5 mg PO HS [facility] Last Admin: 03/23/19 21:13 Dose: 5 mg Oxycodone HCl (Oxycontin -) 10 mg PO BID [facility] Last Admin: 03/23/19 21:14 Dose: 10 mg Polyethylene Glycol (Miralax (For Daily Use) -) 17 gm PO BID [facility] Last Admin: 03/23/19 21:17 Dose: 17 grams Senna (Senna -) 3 tab PO BID [facility] Last Admin: 03/23/19 21:13 Dose: 3 tab Verapamil HCl (Calan Sr -) 240 mg PO DAILY [facility] Last Admin: 03/23/19 09:59 Dose: 240 mg - Objective Vital Signs: Vital Signs Temperature 97.6 F 03/23/19 16:30 Pulse Rate 61 03/23/19 16:30 Respiratory Rate 18 03/23/19 16:30 Blood Pressure 139/77 03/23/19 16:30 O2 Sat by Pulse Oximetry (%) 99 03/23/19 20:36 Constitutional: Yes: No Distress, Calm Cardiovascular: Yes: S1, S2 Respiratory: Yes: Regular, CTA Bilaterally Gastrointestinal: Yes: Soft Wound/Incision: Yes: Dressing Dry and Intact Neurological: Yes: Alert, Oriented Psychiatric: Yes: Alert, Oriented Labs: CBC, BMP 03/21/19 07:08 03/21/19 07:08 Assessment/Plan -Problem List - Problems (1) Degenerative lumbar spinal stenosis Code(s): M48.061 - SPINAL STENOSIS, LUMBAR REGION WITHOUT NEUROGENIC MARY (2) Diabetes Code(s): E11.9 - TYPE 2 DIABETES MELLITUS WITHOUT COMPLICATIONS (3) Gout Code(s): M10.9 - GOUT, UNSPECIFIED (4) HTN (hypertension) Code(s): I10 - ESSENTIAL (PRIMARY) HYPERTENSION (5) Kyphosis Code(s): M40.209 - UNSPECIFIED KYPHOSIS, SITE UNSPECIFIED Assessment/Plan Leukocytosis Spinal stenosis s/p L2-S1 b/l laminectomy/osteotomy s/p I+D/washout POD#2 DM Gout HTN plan stable continue current mgmt
[2019-03-24] MEDS: EPLERENONE 25 MG TABLET PO SCH (09:47)
[2019-03-24] MEDS: POLYETHYLENE GLYCOL 3350 119 GM BTL PO SCH ×2 (09:50→21:11)
--- NOTE | 2019-03-24 11:47 | PN ---
Progress Note, Physician Chief Complaint: back pain - Current Medication List Current Medications: Active Medications Acetaminophen (Tylenol -) 650 mg PO Q6H [facility] Last Admin: 03/24/19 06:26 Dose: 650 mg Allopurinol (Zyloprim -) 100 mg PO DAILY [facility] Last Admin: 03/24/19 09:42 Dose: 100 mg Atorvastatin Calcium (Lipitor -) 10 mg PO HS [facility] Last Admin: 03/23/19 21:13 Dose: 10 mg Brimonidine Tartrate (Alphagan P 0.1% -) 1 drop OU DAILY [facility] Last Admin: 03/24/19 09:40 Dose: 1 drop Docusate Sodium (Colace -) 300 mg PO BID [facility] Last Admin: 03/24/19 09:40 Dose: 300 mg Eplerenone (Eplerenone) 50 mg PO DAILY [facility] Last Admin: 03/24/19 09:47 Dose: 50 mg Folic Acid (Folic Acid -) 1 mg PO DAILY [facility] Last Admin: 03/24/19 09:41 Dose: 1 mg Hydrochlorothiazide (Hctz -) 25 mg PO DAILY [facility] Last Admin: 03/24/19 09:42 Dose: 25 mg Insulin Aspart (Novolog Vial Sliding Scale -) 1 vial SQ [facility]; Protocol Last Admin: 03/24/19 06:27 Dose: Not Given Latanoprost (Xalatan 0.005% Eye Drops -) 1 drop OU HS [facility] Last Admin: 03/23/19 21:18 Dose: 1 drop Lisinopril (Prinivil) 20 mg PO DAILY [facility] Last Admin: 03/24/19 09:42 Dose: 20 mg Metoclopramide HCl (Reglan -) 10 mg PO DAILY [facility] Last Admin: 03/24/19 09:41 Dose: 10 mg Metoprolol Succinate (Toprol Xl -) 50 mg PO DAILY [facility] Last Admin: 03/24/19 09:41 Dose: 50 mg Oxybutynin Chloride (Ditropan -) 5 mg PO HS [facility] Last Admin: 03/23/19 21:13 Dose: 5 mg Oxycodone HCl (Oxycontin -) 10 mg PO BID [facility] Last Admin: 03/24/19 09:42 Dose: 10 mg Polyethylene Glycol (Miralax (For Daily Use) -) 17 gm PO BID [facility] Last Admin: 03/24/19 09:50 Dose: 17 grams Senna (Senna -) 3 tab PO BID [facility] Last Admin: 03/24/19 09:41 Dose: 3 tab Verapamil HCl (Calan Sr -) 240 mg PO DAILY [facility] Last Admin: 03/24/19 09:44 Dose: 240 mg - Objective Vital Signs: Vital Signs Temperature 97.6 F 03/23/19 16:30 Pulse Rate 61 03/23/19 16:30 Respiratory Rate 18 03/23/19 16:30 Blood Pressure 139/77 03/23/19 16:30 O2 Sat by Pulse Oximetry (%) 99 03/23/19 20:36 Constitutional: Yes: No Distress, Calm, Obese Eyes: Yes: WNL HENT: Yes: WNL Neck: Yes: WNL Cardiovascular: Yes: WNL Respiratory: Yes: WNL Gastrointestinal: Yes: WNL Genitourinary: Yes: WNL Musculoskeletal: Yes: WNL Extremities: Yes: WNL Edema: No Peripheral Pulses WNL: Yes Integumentary: Yes: WNL Wound/Incision: Yes: Clean/Dry, Well Approximated Neurological: Yes: WNL ...Motor Strength: WNL Psychiatric: Yes: WNL Labs: CBC, BMP 03/21/19 07:08 03/21/19 07:08 Assessment/Plan -68 y/o man with DM, HTN, gout, and spinal stenosis with segmental instability admitted to the ICU for medical management s/p L2-S1 bilateral laminectomy. cont pain management. incentive spirometry. dressing changed on 03/23 by Bae. S/P I&D of surgical wound on 03/15. CT positive for pneumonia, possibly HCAP. IV antibiotics started, now off . ID marisol appreciated. -GI, DVT prophylaxis. -morbid obesity: weight loss and healthier lifestyle advised. -chronic gout: cont allopurinol. -HLD: on lipitor -acute on chronic anemia: on folic acid -type 2 DM: on RISS. hold amaryl as it can exacerbate hypoglycemia as a sulfonylurea class medication. -HTN/CHF: on lisinopril, HCTZ, verpamil. uncontrolled. DC's lopressor, started toprol XL 50 mg daily. -low anion gap: from reduced protein intake. -PT/OT/OB as tolerated -clear liquid diet well tolerated. having regular BM's mow. advanced to diabetic diet -chronic glaucoma: on latanoprost -assessment and plan discussed with pt and medical staff. labwork and meds reviewed. hopefully will DC to rehab within 48 hours. phone calls answered throughout the day. 40 min -
[2019-03-24] MEDS: ATORVASTATIN CA 10 MG TABLET (FP) PO SCH (21:09)
[2019-03-24] MEDS: OXYBUTYNIN CHLORIDE 5 MG TABLET PO SCH (21:09)
[2019-03-24] MEDS: LATANOPROST 0.005% OPHTH SOLN 2.5ML BOTTLE OU SCH (21:18)
[2019-03-25] MEDS: ACETAMINOPHEN 325 MG TABLET (FP) PO SCH ×4 (00:11→17:47)
[2019-03-25] MEDS: INSULIN SLIDING SCALE (NOVOLOG) 1 VIAL SQ SCH ×4 (06:03→22:06)
--- NOTE | 2019-03-25 08:09 | PN ---
Progress Note, Physician History of Present Illness: stable no new issues - Current Medication List Current Medications: Active Medications Acetaminophen (Tylenol -) 650 mg PO Q6H [facility] Last Admin: 03/25/19 05:48 Dose: 650 mg Allopurinol (Zyloprim -) 100 mg PO DAILY [facility] Last Admin: 03/24/19 09:42 Dose: 100 mg Atorvastatin Calcium (Lipitor -) 10 mg PO HS [facility] Last Admin: 03/24/19 21:09 Dose: 10 mg Brimonidine Tartrate (Alphagan P 0.1% -) 1 drop OU DAILY [facility] Last Admin: 03/24/19 09:40 Dose: 1 drop Docusate Sodium (Colace -) 300 mg PO BID [facility] Last Admin: 03/24/19 21:10 Dose: 300 mg Eplerenone (Eplerenone) 50 mg PO DAILY [facility] Last Admin: 03/24/19 09:47 Dose: 50 mg Folic Acid (Folic Acid -) 1 mg PO DAILY [facility] Last Admin: 03/24/19 09:41 Dose: 1 mg Hydrochlorothiazide (Hctz -) 25 mg PO DAILY [facility] Last Admin: 03/24/19 09:42 Dose: 25 mg Insulin Aspart (Novolog Vial Sliding Scale -) 1 vial SQ [facility]; Protocol Last Admin: 03/25/19 06:03 Dose: Not Given Latanoprost (Xalatan 0.005% Eye Drops -) [address] [facility] Last Admin: 03/24/19 21:18 Dose: 1 drop Lisinopril (Prinivil) 20 mg PO DAILY [facility] Last Admin: 03/24/19 09:42 Dose: 20 mg Metoclopramide HCl (Reglan -) 10 mg PO DAILY [facility] Last Admin: 03/24/19 09:41 Dose: 10 mg Metoprolol Succinate (Toprol Xl -) 50 mg PO DAILY [facility] Last Admin: 03/24/19 09:41 Dose: 50 mg Oxybutynin Chloride (Ditropan -) 5 mg PO HS [facility] Last Admin: 03/24/19 21:09 Dose: 5 mg Oxycodone HCl (Oxycontin -) 10 mg PO BID [facility] Last Admin: 03/24/19 21:17 Dose: 10 mg Polyethylene Glycol (Miralax (For Daily Use) -) 17 gm PO BID [facility] Last Admin: 07/14/19 21:11 Dose: Not Given Senna (Senna -) 3 tab PO BID [facility] Last Admin: 03/24/19 21:09 Dose: 3 tab Verapamil HCl (Calan Sr -) 240 mg PO DAILY [facility] Last Admin: 03/24/19 09:44 Dose: 240 mg - Objective Vital Signs: Vital Signs Temperature 97.4 F L 03/25/19 06:42 Pulse Rate 66 03/25/19 06:42 Respiratory Rate 20 03/25/19 06:42 Blood Pressure 119/71 03/25/19 06:42 O2 Sat by Pulse Oximetry (%) 99 03/23/19 20:36 Constitutional: Yes: No Distress, Calm Cardiovascular: Yes: Regular Rate and Rhythm Respiratory: Yes: Regular, CTA Bilaterally Gastrointestinal: Yes: Normal Bowel Sounds, Soft Musculoskeletal: Yes: WNL Extremities: Yes: WNL Wound/Incision: Yes: Dressing Dry and Intact Neurological: Yes: Alert, Oriented Psychiatric: Yes: Alert, Oriented Labs: CBC, BMP 03/21/19 07:08 03/21/19 07:08 Assessment/Plan -Problem List - Problems (1) Degenerative lumbar spinal stenosis Code(s): M48.061 - SPINAL STENOSIS, LUMBAR REGION WITHOUT NEUROGENIC MARY (2) Diabetes Code(s): E11.9 - TYPE 2 DIABETES MELLITUS WITHOUT COMPLICATIONS (3) Gout Code(s): M10.9 - GOUT, UNSPECIFIED (4) HTN (hypertension) Code(s): I10 - ESSENTIAL (PRIMARY) HYPERTENSION (5) Kyphosis Code(s): M40.209 - UNSPECIFIED KYPHOSIS, SITE UNSPECIFIED Assessment/Plan Leukocytosis Spinal stenosis s/p L2-S1 b/l laminectomy/osteotomy s/p I+D/washout POD#2 DM Gout HTN plan stable continue current mgmt
[2019-03-25] MEDS ORDERED: PT OWN MED DRAWER 7, Y5N ONE (09:17)
[2019-03-25] MEDS: BRIMONIDINE TARTRATE 0.1% OPHTHALMIC 5 ML BOTTLE OU SCH (09:21)
[2019-03-25] MEDS: VERAPAMIL HCL 240 MG E.R. TABLET PO SCH (09:21)
[2019-03-25] MEDS: ALLOPURINOL 100 MG TABLET (FP) PO SCH (09:23)
[2019-03-25] MEDS: SENNOSIDES 8.6MG TABLET (FP) PO SCH ×2 (09:23→22:06)
[2019-03-25] MEDS: DOCUSATE SODIUM 100 MG CAPSULE (FP) PO SCH ×2 (09:23→22:05)
[2019-03-25] MEDS: LISINOPRIL 20 MG TABLET (FP) PO SCH (09:23)
[2019-03-25] MEDS: METOCLOPRAMIDE HCL 10 MG TABLET (FP) PO SCH (09:23)
[2019-03-25] MEDS: FOLIC ACID 1 MG TABLET (FP) PO SCH (09:23)
[2019-03-25] MEDS: HYDROCHLOROTHIAZIDE 25 MG TABLET (FP) PO SCH (09:23)
[2019-03-25] MEDS: oxyCODONE HCL 10 MG SUSTAINED ACTING TABLET PO SCH ×2 (09:24→22:05)
[2019-03-25] MEDS: POLYETHYLENE GLYCOL 3350 119 GM BTL PO SCH ×2 (09:24→22:07)
[2019-03-25] MEDS: EPLERENONE 25 MG TABLET PO SCH (09:24)
--- NOTE | 2019-03-25 15:41 | DS ---
"Physical Examination Vital Signs: Vital Signs Temperature 97.4 F L 03/25/19 06:42 Pulse Rate 66 03/25/19 06:42 Respiratory Rate 20 03/25/19 06:42 Blood Pressure 119/71 03/25/19 06:42 O2 Sat by Pulse Oximetry (%) 99 03/23/19 20:36 Constitutional: Yes: Well Nourished, No Distress, Obese Eyes: Yes: WNL HENT: Yes: WNL Neck: Yes: WNL Cardiovascular: Yes: WNL Respiratory: Yes: WNL Gastrointestinal: Yes: WNL Renal/: Yes: WNL Musculoskeletal: Yes: WNL, Back Pain Extremities: Yes: WNL Edema: Yes Peripheral Pulses WNL: Yes Integumentary: Yes: WNL Wound/Incision: Yes: Clean/Dry, Well Approximated Neurological: Yes: WNL ...Motor Strength: WNL Labs: CBC, BMP 03/21/19 07:08 03/21/19 07:08 Discharge Summary Reason For Visit: SPINAL STENOSIS Current Active Problems Degenerative lumbar spinal stenosis (Acute) Diabetes (Acute) Gout (Acute) HTN (hypertension) (Acute) Kyphosis (Acute) Condition: Stable - Instructions Diet, Activity, Other Instructions: Post Operative Instructions Physical Activity Resume your normal everyday activity as tolerated. No heavy lifting or exercise until seen by your surgeon. You may walk unlimited amounts and climb stairs. Do not operate a vehicle while taking narcotic medication. Brace You had back surgery, wear TLSO Brace whenever out of bed. May remove to sleep and shower. Wound Care Leave surgical dressing place. If it falls off or is peeling off, replace it with a dry dressing(4x4 gauze) and tegaderm/tape. Keep it covered at all times. No baths or showering. Diet There are no dietary restrictions. Eat healthy, high-fiber foods. Drink 6-8 glasses of liquid each day. This will assist in keeping your bowels regular. Pain Management You may take Tylenol or acetaminophen. Any pain prescription medication ordered should be taken as prescribed for moderate to severe pain. Avoid any ibuprofen (Motrin, Advil, Aleve, Toradol, etc) for 3 months unless otherwise discussed with your surgeon. Call Dr Hewitt for any of the following: Severe pain not relieved by medication Fever of 101 or higher Excessive bleeding or drainage on dressing Inability to urinate Any chest pain or shortness of breath, seek Emergency Care. Please call the office at to confirm your post-op appointment for the week following surgery. [facility] [employer]: This report was requested by: Ned Hunt | Reference #: [id number] Disposition: [facility] - Home Medications Comprehensive Discharge Medication List: Ambulatory Orders Allopurinol [Zyloprim -] 100 mg PO DAILY 03/08/19 Eplerenone [Inspra] 50 mg PO DAILY 03/08/19 Folic Acid - 1 mg PO DAILY 03/08/19 Furosemide 40 mg PO ASDIR 03/08/19 Glimepiride [Amaryl -] 1 mg PO DAILY 03/08/19 Hydrochlorothiazide 25 mg PO DAILY 03/08/19 Latanoprost/Pf [Latanoprost 0.005% Eye Drop] 1 ml OU HS 03/08/19 Lisinopril 20 mg PO DAILY 03/08/19 Metoprolol Tartrate 25 mg PO BID 03/08/19 Oxybutynin Chloride [Oxybutynin Chloride ER] 5 mg PO HS 03/08/19 Oxycodone HCl/Acetaminophen [Endocet 7.5-325 mg Tablet] 1 each PO PRN PRN Simvastatin 10 mg PO HS 03/08/19 Verapamil HCl [Verapamil ER] 240 mg PO BID 03/08/19 Brimonidine Tartrate [Alphagan P 0.1% -] 1 drop OU DAILY 03/11/19"
[2019-03-25] MEDS: ATORVASTATIN CA 10 MG TABLET (FP) PO SCH (22:05)
[2019-03-25] MEDS: OXYBUTYNIN CHLORIDE 5 MG TABLET PO SCH (22:05)
[2019-03-25] MEDS: LATANOPROST 0.005% OPHTH SOLN 2.5ML BOTTLE OU SCH (22:07)
[2019-03-26] MEDS: ACETAMINOPHEN 325 MG TABLET (FP) PO SCH ×3 (02:02→12:31)
[2019-03-26] MEDS: INSULIN SLIDING SCALE (NOVOLOG) 1 VIAL SQ SCH ×2 (06:54→12:17)
--- NOTE | 2019-03-26 10:30 | PN ---
Progress Note, Physician Chief Complaint: back pain - Current Medication List Current Medications: Active Medications Acetaminophen (Tylenol -) [address] [facility] Last Admin: 03/26/19 06:54 Dose: 650 mg Allopurinol (Zyloprim -) [address] [facility] Last Admin: 03/25/19 09:23 Dose: 100 mg Atorvastatin Calcium (Lipitor -) [address] [facility] Last Admin: 03/25/19 22:05 Dose: 10 mg Brimonidine Tartrate (Alphagan P 0.1% -) [address] [facility] Last Admin: 03/25/19 09:21 Dose: 1 drop Docusate Sodium (Colace -) [address] [facility] Last Admin: 03/25/19 22:05 Dose: 300 mg Eplerenone (Eplerenone) [address] [facility] Last Admin: 03/25/19 09:24 Dose: 50 mg Folic Acid (Folic Acid -) [address] [facility] Last Admin: 03/25/19 09:23 Dose: 1 mg Hydrochlorothiazide (Hctz -) [address] [facility] Last Admin: 03/25/19 09:23 Dose: 25 mg Insulin Aspart (Novolog Vial Sliding Scale -) 1 vial SQ [facility]; Protocol Last Admin: 03/26/19 06:54 Dose: Not Given Latanoprost (Xalatan 0.005% Eye Drops -) [address] [facility] Last Admin: 03/25/19 22:07 Dose: 1 drop Lisinopril (Prinivil) [address] [facility] Last Admin: 03/25/19 09:23 Dose: 20 mg Metoclopramide HCl (Reglan -) [address] [facility] Last Admin: 03/25/19 09:23 Dose: 10 mg Metoprolol Succinate (Toprol Xl -) [address] [facility] Last Admin: 03/25/19 09:23 Dose: 50 mg Oxybutynin Chloride (Ditropan -) [address] [facility] Last Admin: 03/25/19 22:05 Dose: 5 mg Polyethylene Glycol (Miralax (For Daily Use) -) [address] [facility] Last Admin: 03/25/19 22:07 Dose: Not Given Senna (Senna -) [address] [facility] Last Admin: 03/25/19 22:06 Dose: 3 tab Verapamil HCl (Calan Sr -) 240 mg PO DAILY [facility] Last Admin: 03/25/19 09:21 Dose: 240 mg - Objective Vital Signs: Vital Signs Temperature 98 F 03/26/19 06:26 Pulse Rate 91 H 03/26/19 06:26 Respiratory Rate 20 03/26/19 06:26 Blood Pressure 105/73 03/26/19 06:26 O2 Sat by Pulse Oximetry (%) 97 03/25/19 21:00 Constitutional: Yes: Obese Eyes: Yes: WNL HENT: Yes: WNL Neck: Yes: WNL Cardiovascular: Yes: WNL Respiratory: Yes: WNL Genitourinary: Yes: WNL Musculoskeletal: Yes: Back Pain Extremities: Yes: WNL Edema: Yes Peripheral Pulses WNL: Yes Integumentary: Yes: WNL Wound/Incision: Yes: Clean/Dry, Well Approximated, Dressing Dry and Intact Neurological: Yes: WNL ...Motor Strength: WNL Psychiatric: Yes: WNL Labs: CBC, BMP 03/21/19 07:08 03/21/19 07:08 Assessment/Plan -68 y/o man with DM, HTN, gout, and spinal stenosis with segmental instability admitted to the ICU for medical management s/p L2-S1 bilateral laminectomy. cont pain management. incentive spirometry. dressing changed on 03/23 by Bae. S/P I&D of surgical wound on 03/15. CT positive for pneumonia, possibly HCAP. IV antibiotics started, now off . ID eval appreciated. -GI, DVT prophylaxis. -morbid obesity: weight loss and healthier lifestyle advised. -chronic gout: cont allopurinol. -HLD: on lipitor -acute on chronic anemia: on folic acid -type 2 DM: on RISS. hold amaryl as it can exacerbate hypoglycemia as a sulfonylurea class medication. -HTN/CHF: on lisinopril, HCTZ, verpamil. uncontrolled. DC's lopressor, started toprol XL 50 mg daily. -low anion gap: from reduced protein intake. -PT/OT/OB as tolerated -clear liquid diet well tolerated. having regular BM's mow. advanced to diabetic diet -chronic glaucoma: on latanoprost -assessment and plan discussed with pt and medical staff. labwork and meds reviewed. DC to rehab planned for today phone calls answered throughout the day. 40 min -
[2019-03-26] MEDS ORDERED: PT OWN MED DRAWER 7, Y5N ONE (10:43)
[2019-03-26] MEDS: LISINOPRIL 20 MG TABLET (FP) PO SCH (10:46)
[2019-03-26] MEDS: METOCLOPRAMIDE HCL 10 MG TABLET (FP) PO SCH (10:46)
[2019-03-26] MEDS: VERAPAMIL HCL 240 MG E.R. TABLET PO SCH (10:49)
[2019-03-26] MEDS: DOCUSATE SODIUM 100 MG CAPSULE (FP) PO SCH (10:49)
[2019-03-26] MEDS: HYDROCHLOROTHIAZIDE 25 MG TABLET (FP) PO SCH (10:50)
[2019-03-26] MEDS: SENNOSIDES 8.6MG TABLET (FP) PO SCH (10:50)
[2019-03-26] MEDS: EPLERENONE 25 MG TABLET PO SCH (10:50)
[2019-03-26] MEDS: BRIMONIDINE TARTRATE 0.1% OPHTHALMIC 5 ML BOTTLE OU SCH (10:52)
[2019-03-26] MEDS: ALLOPURINOL 100 MG TABLET (FP) PO SCH (10:52)
[2019-03-26] MEDS: FOLIC ACID 1 MG TABLET (FP) PO SCH (11:03)
[2019-03-26] MEDS: POLYETHYLENE GLYCOL 3350 119 GM BTL PO SCH (11:35)
--- NOTE | 2019-03-26 12:34 | PN ---
Progress Note, Physician History of Present Illness: stable no new issues - Current Medication List Current Medications: Active Medications Acetaminophen (Tylenol -) 650 mg PO Q6H [facility] Last Admin: 03/26/19 12:31 Dose: 650 mg Allopurinol (Zyloprim -) 100 mg PO DAILY [facility] Last Admin: 03/26/19 10:52 Dose: 100 mg Atorvastatin Calcium (Lipitor -) 10 mg PO HS [facility] Last Admin: 03/25/19 22:05 Dose: 10 mg Brimonidine Tartrate (Alphagan P 0.1% -) 1 drop OU DAILY [facility] Last Admin: 03/26/19 10:52 Dose: 1 drop Docusate Sodium (Colace -) 300 mg PO BID [facility] Last Admin: 03/26/19 10:49 Dose: 300 mg Eplerenone (Eplerenone) 50 mg PO DAILY [facility] Last Admin: 03/26/19 10:50 Dose: 50 mg Folic Acid (Folic Acid -) 1 mg PO DAILY [facility] Last Admin: 03/26/19 11:03 Dose: 1 mg Hydrochlorothiazide (Hctz -) 25 mg PO DAILY [facility] Last Admin: 03/26/19 10:50 Dose: 25 mg Insulin Aspart (Novolog Vial Sliding Scale -) 1 vial SQ [facility]; Protocol Last Admin: 03/26/19 12:17 Dose: Not Given Latanoprost (Xalatan 0.005% Eye Drops -) [address] [facility] Last Admin: 03/25/19 22:07 Dose: 1 drop Lisinopril (Prinivil) 20 mg PO DAILY [facility] Last Admin: 03/26/19 10:46 Dose: 20 mg Metoclopramide HCl (Reglan -) 10 mg PO DAILY [facility] Last Admin: 03/26/19 10:46 Dose: 10 mg Metoprolol Succinate (Toprol Xl -) 50 mg PO DAILY [facility] Last Admin: 03/26/19 10:49 Dose: 50 mg Oxybutynin Chloride (Ditropan -) 5 mg PO HS [facility] Last Admin: 03/25/19 22:05 Dose: 5 mg Polyethylene Glycol (Miralax (For Daily Use) -) 17 gm PO BID [facility] Last Admin: 03/26/19 11:35 Dose: Not Given Senna (Senna -) 3 tab PO BID [facility] Last Admin: 03/26/19 10:50 Dose: 3 tab Verapamil HCl (Calan Sr -) 240 mg PO DAILY [facility] Last Admin: 03/26/19 10:49 Dose: 240 mg - Objective Vital Signs: Vital Signs Temperature 98 F 03/26/19 06:26 Pulse Rate 91 H 03/26/19 06:26 Respiratory Rate 20 03/26/19 06:26 Blood Pressure 105/73 03/26/19 06:26 O2 Sat by Pulse Oximetry (%) 97 03/25/19 21:00 Constitutional: Yes: No Distress, Calm HENT: Yes: Atraumatic Cardiovascular: Yes: Regular Rate and Rhythm Respiratory: Yes: Regular, CTA Bilaterally Gastrointestinal: Yes: Normal Bowel Sounds, Soft Musculoskeletal: Yes: WNL Extremities: Yes: WNL Neurological: Yes: Alert, Oriented Psychiatric: Yes: Alert, Oriented Labs: CBC, BMP 03/21/19 07:08 03/21/19 07:08 Assessment/Plan -Problem List - Problems (1) Degenerative lumbar spinal stenosis Code(s): M48.061 - SPINAL STENOSIS, LUMBAR REGION WITHOUT NEUROGENIC MARY (2) Diabetes Code(s): E11.9 - TYPE 2 DIABETES MELLITUS WITHOUT COMPLICATIONS (3) Gout Code(s): M10.9 - GOUT, UNSPECIFIED (4) HTN (hypertension) Code(s): I10 - ESSENTIAL (PRIMARY) HYPERTENSION (5) Kyphosis Code(s): M40.209 - UNSPECIFIED KYPHOSIS, SITE UNSPECIFIED Assessment/Plan Leukocytosis Spinal stenosis s/p L2-S1 b/l laminectomy/osteotomy s/p I+D/washout POD#2 DM Gout HTN plan stable continue current mgmt
[2019-03-26 14:18] VITALS: BP 121/90; PULSE 20; TEMP 97.8
== END 2019-03-26 13:45 | DRG 453 ==
LOC: JSAMEDAYSX 09:18 → JICU 22:36 → J8W 03-12 17:58
PROVIDERS: ADMIT Orthopaedic Surgery Orthopaedic Surgery of the Spine; ATTEND Internal Medicine
PROC: 0SG1071 Fusion of 2 or more Lumbar Vertebral Joints with Autologous Tissue Substitute, Posterior Approach, Posterior Column, Open Approach (ICD-10-PCS; 2019-03-11)
PROC: 0SG30AJ Fusion of Lumbosacral Joint with Interbody Fusion Device, Posterior Approach, Anterior Column, Open Approach (ICD-10-PCS; 2019-03-11)
PROC: 0SG3071 Fusion of Lumbosacral Joint with Autologous Tissue Substitute, Posterior Approach, Posterior Column, Open Approach (ICD-10-PCS; 2019-03-11)
PROC: 01NB0ZZ Release Lumbar Nerve, Open Approach (ICD-10-PCS; 2019-03-11)
PROC: 00QT0ZZ Repair Spinal Meninges, Open Approach (ICD-10-PCS; 2019-03-11)
PROC: 07DR3ZX Extraction of Iliac Bone Marrow, Percutaneous Approach, Diagnostic (ICD-10-PCS; 2019-03-11)
PROC: B01BZZZ Fluoroscopy of Spinal Cord (ICD-10-PCS; 2019-03-11)
PROC: 4A1004G Monitoring of Central Nervous Electrical Activity, Intraoperative, Open Approach (ICD-10-PCS; 2019-03-11)
PROC: 0SG10AJ Fusion of 2 or more Lumbar Vertebral Joints with Interbody Fusion Device, Posterior Approach, Anterior Column, Open Approach (ICD-10-PCS; principal; 2019-03-11 12:00)
PROC: 0W9K0ZZ Drainage of Upper Back, Open Approach (ICD-10-PCS; 2019-03-15)
DX: M48.061 Spinal stenosis, lumbar region without neurogenic claudication (principal); J18.9 Pneumonia, unspecified organism; G96.11 Dural tear; M96.840 Postprocedural hematoma of a musculoskeletal structure following a musculoskeletal system procedure; M53.2X6 Spinal instabilities, lumbar region; M40.209 Unspecified kyphosis, site unspecified; Y83.9 Surgical procedure, unspecified as the cause of abnormal reaction of the patient, or of later complication, without mention of misadventure at the time of the procedure; E11.9 Type 2 diabetes mellitus without complications; M10.9 Gout, unspecified; I10 Essential (primary) hypertension; E66.01 Morbid (severe) obesity due to excess calories; Z68.39 Body mass index [BMI] 39.0-39.9, adult; E78.5 Hyperlipidemia, unspecified; D64.9 Anemia, unspecified; I50.9 Heart failure, unspecified; H40.9 Unspecified glaucoma; K59.00 Constipation, unspecified; D72.829 Elevated white blood cell count, unspecified
CPT/HCPCS: 36415; 71045-TC-FY; 72100-TC-FY; 74018-TC-FY; 74019-TC-FY; 74176-TC; 76000-TC-FY; 80048; 80053; 82962; 83735; 84100; 85025; 85027; 86850; 86900; 86901; 87070; 87205; 90670; 94760; 97116-GP; 97162-GP; J1644; J3480; Q9967